=== PATIENT | female | born 1950 | race Caucasian/White ===

== ENCOUNTER → 2016-10-28 | Outpatient (CLI) | payer OTHER ==
[2016-03-20 07:30] VITALS: BP 189/70
--- NOTE | 2016-10-28 12:06 | RAD ---
HISTORY: Right hand, thumb pain post fall Study: Three views right hand Comparison: None Findings: Normal alignment. No acute fracture or dislocation. The soft tissues are unremarkable. There are de generative changes of the fingers and wrist. IMPRESSION: 1. No acute osseous abnormality. Reported By:
== END ==
LOC: RAD 11:19
PROVIDERS: ATTEND Nurse Practitioner Family
DX: M79.641 Pain in right hand (principal)
CPT/HCPCS: 73130

== ENCOUNTER → 2017-04-05 | Outpatient (CLI) | payer OTHER ==
[2016-03-20 07:30] VITALS: BP 189/70
--- NOTE | 2017-04-11 15:55 | MG ---
HISTORY: SCREENING Comparison: Multiple priors dating back to July 28, 2009 FINDINGS: Bilateral CC and MLO projections of the right and left breast were obtained. Scattered fibroglandula r tissue is seen to be present without significant interval change. No suspicious architectural dist ortion, mass or clustered microcalcifications can be observed to suggest malignancy. No skin thicken ing or nipple retraction is appreciated. No pathological lymphadenopathy can be identified. Benign- appearing calcifications are noted within the right and left breast. IMPRESSION: NO RADIOGRAPHIC EVIDENCE OF MALIGNANCY. ACR CATEGORY 2 - benign findings. FOLLOW-UP EXAM 1 YEAR. Diagnostic CAD was utilized and reviewed. * 0 (ZERO) - ASSESSMENT INCOMPLETE; ADDITIONAL IMAGING IS NEEDED. * 1/1 (ONE) - NEGATIVE. * 2/II (TWO) - BENIGN FINDINGS. * 3/III (THREE) - PROBABLY BENIGN FINDING; SHORT INTERVAL FOLLOW-UP SUGGESTED. * 4/IV (FOUR) - SUSPICIOUS ABNORMALITY; BIOPSY SHOULD BE CONSIDERED. * 5/V (FIVE) - HIGHLY SUSPICIOUS OF MALIGNANCY; BIOPSY SHOULD BE PERFORMED. A NEGATIVE X-RAY REPORT SHOULD NOT DELAY BIOPSY IF A DOMINANT OR CLINICALLY SUSPICIOUS MASS IS PRESENT; 4 TO 8 PERCENT OF CANCERS ARE NOT IDENTIFIED BY X-RAY. A NEGA TIVE REPORT MAY REINFORCE THE CLINICAL IMPRESSION. ADENOSIS AND DENSE BREASTS MAY OBSCURE AN UNDERLY ING NEOPLASM. Reported By:
== END ==
LOC: RAD 10:22
PROVIDERS: ATTEND Nurse Practitioner Family
DX: Z12.31 Encounter for screening mammogram for malignant neoplasm of breast (principal)
CPT/HCPCS: 77067

== ENCOUNTER → 2017-09-15 | Outpatient (CLI) | payer OTHER ==
[2016-03-20 07:30] VITALS: BP 189/70
--- NOTE | 2017-09-15 09:19 | RAD ---
HISTORY: Back pain with radiculopathy. Study: Three views of the thoracic spine and 3 views of the lumbar spine. Comparison: None. Findings: 12 rib-bearing thoracic vertebra and 5 [id number] lumbar vertebra. No acute fracture or listhesi s. Mild levocurvature of the lumbar spine, which may represent positioning versus muscle spasm. Multi level mild wedge-shaped deformities of the lower thoracic spine, that appear remote. Multilevel disc space narrowing, facet arthrosis, and large anterior disc osteophyte complexes. Diffuse osteopenia. T he cardiac silhouette and lungs appear normal. Vascular calcifications. Surgical clips in the upper a bdomen. The SI joints are unremarkable. IMPRESSION: Chronic findings as above. Reported By:
--- NOTE | 2017-09-15 09:19 | RAD ---
HISTORY: Back pain with radiculopathy. Study: Three views of the thoracic spine and 3 views of the lumbar spine. Comparison: None. Findings: 12 rib-bearing thoracic vertebra and 5 [id number] lumbar vertebra. No acute fracture or listhesi s. Mild levocurvature of the lumbar spine, which may represent positioning versus muscle spasm. Multi level mild wedge-shaped deformities of the lower thoracic spine, that appear remote. Multilevel disc space narrowing, facet arthrosis, and large anterior disc osteophyte complexes. Diffuse osteopenia. T he cardiac silhouette and lungs appear normal. Vascular calcifications. Surgical clips in the upper a bdomen. The SI joints are unremarkable. IMPRESSION: Chronic findings as above. Reported By:
== END ==
LOC: RAD 08:01
PROVIDERS: ATTEND Nurse Practitioner Family
DX: M54.17 Radiculopathy, lumbosacral region (principal); M54.14 Radiculopathy, thoracic region
CPT/HCPCS: 72072; 72100

== ENCOUNTER → 2017-11-28 | Outpatient (CLI) | payer OTHER ==
[2016-03-20 07:30] VITALS: BP 189/70
--- NOTE | 2017-11-28 09:06 | RAD ---
HISTORY: Chronic right hip pain Study: Right hip AP, frog-leg, AP pelvis Comparison: None Findings: The bones are mildly osteopenic. The pelvic bones and SI joints are intact. The right hip joint is in tact. There is mild degenerative joint space narrowing . no joint erosions are noted. No fracture, ly tic, or blastic lesion is identified. No periarticular soft tissue abnormality is identified. IMPRESSION: Mild osteopenia Mild degenerative joint space narrowing right hip Reported By:
== END ==
LOC: RAD 08:44
PROVIDERS: ATTEND Nurse Practitioner Family
DX: M25.551 Pain in right hip (principal); M85.88 Other specified disorders of bone density and structure, other site
CPT/HCPCS: 73501

== ENCOUNTER 2021-07-28 16:40 | Inpatient (IN) ==
[2021-07-28] MEDS ORDERED: XANAX PO PRN (18:28)
[2021-07-28] MEDS ORDERED: NORCO 7.5/325 MG TAB PO PRN (18:28)
[2021-07-28] MEDS: COLACE CAP 100 MG PO SCH (21:05)
[2021-07-28] MEDS: LYRICA CAP 75 mg PO SCH (21:05)
[2021-07-28] MEDS: ECOTRIN TAB 325 MG PO SCH (21:05)
[2021-07-28] MEDS: ZANAFLEX PO SCH (21:05)
[2021-07-28] MEDS: NORVASC TAB 5 MG PO SCH (21:05)
[2021-07-29] MEDS: PERCOCET TAB 5/325 MG PO PRN ×4 (04:50→20:05)
[2021-07-29 05:06] LABS: BASOPHILS # (AUTO) 0.1 X10^3/uL (0.0-0.1); BASOPHILS % (AUTO) 1.1 % (0.2-1.0); EOSINOPHILS # (AUTO) 0.4 x10^3/uL (0.0-0.2); EOSINOPHILS % (AUTO) 6.7 % (0.9-2.9); HEMOGLOBIN 7.9 g/dL (12.0-16.0); LYMPHOCYTES # (AUTO) 1.1 X10^3/uL (1.3-2.9); LYMPHOCYTES % (AUTO) 17.2 % (21.0-51.0); MEAN CORPUSCULAR HEMOGLOBIN 28.9 pg (27.0-34.0); MEAN CORPUSCULAR HGB CONC 34.2 g/dL (33.0-35.0); MEAN CORPUSCULAR VOLUME 84.6 fL (80.0-100.0); MEAN PLATELET VOLUME 9.4 fL (7.4-11.0); MONOCYTES # (AUTO) 0.8 x10^3/uL (0.3-0.8); MONOCYTES % (AUTO) 13.6 % (0.0-13.0); NEUTROPHILS # (AUTO) 3.8 x10^3/uL (2.2-4.8); NEUTROPHILS % (AUTO) 61.4 % (42.0-75.0); PLATELET COUNT 252 X10^3/uL (150.0-450.0); RED BLOOD COUNT 2.72 X10^6/uL (3.5-5.4); RED CELL DISTRIBUTION WIDTH 13.2 % (11.6-16.5); WHITE BLOOD COUNT 6.1 X10^3/uL (3.6-10.0)
[2021-07-29 05:26] LABS: ALBUMIN 2.4 g/dL (3.4-5.0); CALCIUM 8.9 mg/dL (8.5-10.1); CARBON DIOXIDE 32.1 mmol/L (21-32); COR CA(FOR HYPOALB) 10.2 mg/dL (8.5-10.1); CREATININE 1.38 mg/dL (0.55-1.02); TOTAL PROTEIN 5.6 g/dL (6.4-8.2)
[2021-07-29] MEDS: SYNTHROID 75 mcg TAB PO SCH (06:16)
[2021-07-29] MEDS: CYMBALTA PO SCH (09:28)
[2021-07-29] MEDS: ECOTRIN TAB 325 MG PO SCH ×2 (09:28→20:04)
[2021-07-29] MEDS: MICRO K EXTEN CAP 10 MEQ PO SCH (09:28)
[2021-07-29] MEDS: HYDROCHLOROTHIAZIDE 12.5 MG CAP PO SCH (09:28)
[2021-07-29] MEDS: LYRICA CAP 75 mg PO SCH ×2 (09:28→20:07)
[2021-07-29] MEDS: COZAAR PO SCH (09:28)
[2021-07-29] MEDS: LASIX PO SCH (09:28)
[2021-07-29] MEDS: NORVASC TAB 5 MG PO SCH ×2 (09:28→20:04)
[2021-07-29] MEDS: COLACE CAP 100 MG PO SCH ×2 (09:28→20:04)
--- NOTE | 2021-07-29 12:55 | PT/OTEVAL ---
PT/OT OBJECTIVES - HISTORY Prescription: PT Consult Diagnosis: s/p L Total Knee Arthroplasty (07/21/2021) Precautions: Fall Risk PMH: Weakness, Colitis, Abdominal Pain, Fall, Anemia, Arthritis, Depression, Dyslipidemia, Gout, HTN, Hyperthyroidism, RLS, Fever, N/V, TIA, Dehydration, Neuropathy, Fibromyalgia, L Shoulder OA/Spurs Prior Level of Function: Independent Other, comment: Pt resides in split level home with her . Other: Pt reports home in a split level with 1 step to enter from carport. Pt reports that there are several places in home where she has 2 steps to get to another room (into kitchen, into living room and into laundry room). Prior to surgery, pt was independent for all mobility tasks without a device. Does report using SPC occasionally. Pt states that she was using a hospital bed over the last several years due to back/hip pain/arthritis. - COGNITION Mental Status: Alert, Oriented, Name, Date, Place, Purpose Communication Status: Verbal Ability to Follow Directions: 2 Step Memory Loss: None - PAIN Left Knee Pain Scale: Mild (3-4) Comments: 11/22 to L knee - BED MOBILITY Rolling: Supervision Scooting: Supervision Bridging: Supervision - TRANSFERS Supine to Sit: Supervision Sit to Stand: Supervision, Minimal Sit to Stand Comment: CGA for transfers; however, required min assist from low surface Sit or Stand Pivot: Supervision Safety (requires cues for:): Hand Placement Precaution Safety Comment: Knee Precautions - BALANCE Static Sitting: Good Standing: Fair Dynamic Sitting: Good Standing: Poor - NEUROMOTOR/SENSATION Wilber. Lower Ext Sensation: WFL Coordination: WFL Proprioception: WFL - HAND DOMINANCE Extremity Function: Hand Dominance: Right - ROM Left LE ROM: Impaired Muscle Tone: WFL Comment: L Knee: AROM: Extension:-12, Flexion: 80; PROM: Extension: -10, Flexion: 85 Right LE ROM: WFL Muscle Tone: WFL - STRENGTH Left LE Other comment: L Hip: 3/5, L Knee: 3-/5, L Ankle: 3-/5 Right LE Strength Number: 4 - GAIT Pt. ambulates how many feet?: 100 Amount of assistance required: Minimal Amount of Assistance Required: Supervision Type of Assistive Device: Rolling Walker Comments: CGA for turns with FWW; SBA on straight path. Cues for step length, posture PT/OT ASSESSMENT - PT Problem List: Decreased Bed Mobility, Decreased Transfers, Decreased Gait, Decreased Balance, Decreased LE Strength - PT GOALS Short Term Goals Days: 10 Mobility: Pt will perform bed mobility tasks independently Transfers: Pt will perform functional transfers independently Gait: Pt will ambulate 200ft with FWW and supervision Balance: Pt will increase static standing balance to fair+/good- ROM/Strength: Pt will increase L knee flexion/extension AROM by 10 degrees Others: Pt will ascend/descend 2 stairs with CGA Cardiac Cath Rn Goals Days: 20 Transfers: Pt will complete 8 sit to stand transfers in 30 seconds Gait: Pt will ambulate 300ft with LRAD mod I with TUG of 20 seconds or less Balance: Pt will increase dynamic standing balance to fair+ ROM/Strength: Pt will increase BLE by 1 MMT grade & increase L knee flex/ext by 20 degree Others: Pt will ascend/descend 4 stairs with mod I - PATIENT GOALS Patient/Family Goals: "I want to be able to move on my own so that I can go home" Goals Discussed with Patient/Family: Yes (Pt & ) Rehabilitation Potential: Good to meet stated goals Justification for Potential: Facilitate highest level of function & safe discharge planning. - PLAN Suggested Treatment Plan: Bed Mobility Training, Therapeutic Activity, Gait Training, Neuro Re-education, Therapeutic Ex with HEP, Home Management, Patient Education, Family Education - FREQUENCY AND DURATION PT: 6x per week x 20 days Expected Continuation of Care at Discharge: Outpatient Therapy
[2021-07-29] MEDS: MIRALAX POWDER (1 DOSE 17 G) PO SCH (15:11)
[2021-07-29] MEDS: ZANAFLEX PO SCH (20:04)
[2021-07-30] MEDS: PERCOCET TAB 5/325 MG PO PRN ×3 (00:17→21:20)
[2021-07-30] MEDS: SYNTHROID 75 mcg TAB PO SCH (06:03)
[2021-07-30] MEDS: MIRALAX POWDER (1 DOSE 17 G) PO SCH (08:55)
[2021-07-30] MEDS: ECOTRIN TAB 325 MG PO SCH ×2 (08:56→21:20)
[2021-07-30] MEDS: COLACE CAP 100 MG PO SCH ×2 (08:56→21:19)
[2021-07-30] MEDS: HYDROCHLOROTHIAZIDE 12.5 MG CAP PO SCH (08:56)
[2021-07-30] MEDS: MICRO K EXTEN CAP 10 MEQ PO SCH (08:56)
[2021-07-30] MEDS: LYRICA CAP 75 mg PO SCH ×2 (08:56→21:20)
[2021-07-30] MEDS: CYMBALTA PO SCH (08:56)
[2021-07-30] MEDS: NORVASC TAB 5 MG PO SCH ×2 (08:57→21:20)
[2021-07-30] MEDS: LASIX PO SCH (08:57)
[2021-07-30] MEDS: COZAAR PO SCH (08:57)
--- NOTE | 2021-07-30 12:49 | SP.EVAL ---
SPEECH EVALUATION - History Diagnosis: Total knee replacement PMH: refer to EMR - Cognition Mental Status: Alert Ability to Follow Directions: 3 Step Memory Loss: None - Communication Status Communication Status: Verbal Automatized Sequences: Within Functional Limit Sentence Completion: Within Functional Limit Produces Sentences: Within Functional Limit - Speech Goals Short Term Goals Others: Pt will ascend/descend 2 stairs with CGA Residential Goals Others: Pt will ascend/descend 4 stairs with mod I - Discharge Plan Expected Discharge Disposition: To Be Determined Comments: No skilled ST indicated at this time
--- NOTE | 2021-07-30 13:05 | PT/OTEVAL ---
PT/OT OBJECTIVES - HISTORY Prescription: OT consult Diagnosis: L Total Knee Precautions: fall risk, knee precautions Prior Level of Function: Independent Other: Prior to hospitalization, she lives in a 1 story house with , but did report that there are several steps around the home ranging from 1-2 steps with no HR. Patient was independent with BADLs except she needed assistance with her L leg getting into the tub sometimes. She requires assistance from with IADLs, shopping, and community access. She reports she is able to make small meals and cook with rest breaks. - COGNITION Mental Status: Alert, Oriented, Name, Date, Place, Purpose Communication Status: Verbal Ability to Follow Directions: 3 Step Memory Loss: None - PAIN Left Knee Pain Scale: Mild (3-4) Comments: 11/22 to L knee - BED MOBILITY Rolling: Independent - TRANSFERS Supine to Sit: Independent Sit to Stand: Independent Sit or Stand Pivot: Independent - ADL'S Feeding: Independent, Setup Grooming: Supervision Upper Body ADL: Independent, Setup Lower Body ADL: Moderate Toileting: Supervision - BALANCE Static Sitting: Good Standing: Fair Dynamic Sitting: Good Standing: Poor - NEUROMOTOR/SENSATION Wilber. Lower Ext Sensation: WFL Coordination: WFL Proprioception: WFL - HAND DOMINANCE Extremity Function: Hand Dominance: Right - ROM Bilateral UE Muscle Tone: WFL - STRENGTH Left LE Other comment: L Hip: 3/5, L Knee: 3-/5, L Ankle: 3-/5 Right LE Strength Number: 4 Bilateral UE Strength Number: 3 PT/OT ASSESSMENT - PT GOALS Short Term Goals Days: 10 Mobility: Pt will perform bed mobility tasks independently Transfers: Pt will perform functional transfers independently Gait: Pt will ambulate 200ft with FWW and supervision Balance: Pt will increase static standing balance to fair+/good- ROM/Strength: Pt will increase L knee flexion/extension AROM by 10 degrees Others: Pt will ascend/descend 2 stairs with CGA Payroll Master Goals Days: 20 Transfers: Pt will complete 8 sit to stand transfers in 30 seconds Gait: Pt will ambulate 300ft with LRAD mod I with TUG of 20 seconds or less Balance: Pt will increase dynamic standing balance to fair+ ROM/Strength: Pt will increase BLE by 1 MMT grade & increase L knee flex/ext by 20 degree Others: Pt will ascend/descend 4 stairs with mod I - OT GOALS Short Term Goals Days: 10 Mobility for ADL's: Will demonstrate safe functional transfer w/ knee precautions w/ VC. Dressing: Will don LB clothing with Belen w/ AE. Upper Ext. Strength/Use: Will improve BUE strength to +1/2 MMT grade. Other: Will improve F.A.T. to at least 10 min with RW. Payroll Master Goals Days: 20 Mobility for ADL's: Will demonstrate safe functional transfer with knee precautions Ind. Dressing: Will don LB clothing Ind. w/ AE. Upper Ext. Strength/Use: Will improve BUE strength to +1 MMT grade. Other: Will improve F.A.T. to at least 15 min with RW. - PATIENT GOALS Patient/Family Goals: To go home Goals Discussed with Patient/Family: Yes Rehabilitation Potential: Good Justification for Potential: Motivated, good caregiver support - PLAN Suggested Treatment Plan: Therapeutic Activity, Self Care Training, Therapeutic Ex with HEP, Patient Education, Family Education - FREQUENCY AND DURATION OT: 5x/wk x hospital stay Expected Continuation of Care at Discharge: Home
[2021-07-30] MEDS: CHRONULAC PO PRN ×2 (15:43→21:21)
[2021-07-30] MEDS: ZANAFLEX PO SCH (21:20)
[2021-07-31] MEDS: PERCOCET TAB 5/325 MG PO PRN (02:26)
[2021-07-31] MEDS: SYNTHROID 75 mcg TAB PO SCH (06:14)
[2021-07-31] MEDS: CHRONULAC PO PRN (06:14)
[2021-07-31] MEDS: MILK OF MAGNESIA PO PRN (06:14)
[2021-07-31] MEDS: COLACE CAP 100 MG PO SCH ×2 (09:27→21:36)
[2021-07-31] MEDS: COZAAR PO SCH (09:27)
[2021-07-31] MEDS: CYMBALTA PO SCH (09:27)
[2021-07-31] MEDS: HYDROCHLOROTHIAZIDE 12.5 MG CAP PO SCH (09:28)
[2021-07-31] MEDS: LASIX PO SCH (09:28)
[2021-07-31] MEDS: MICRO K EXTEN CAP 10 MEQ PO SCH (09:28)
[2021-07-31] MEDS: MIRALAX POWDER (1 DOSE 17 G) PO SCH (09:28)
[2021-07-31] MEDS: ECOTRIN TAB 325 MG PO SCH ×2 (09:28→21:36)
[2021-07-31] MEDS: LYRICA CAP 75 mg PO SCH ×2 (09:28→21:36)
[2021-07-31] MEDS: NORVASC TAB 5 MG PO SCH ×2 (09:29→21:36)
[2021-07-31] MEDS ORDERED: ZOFRAN INJ 4 MG VIAL IVP PRN (13:15)
[2021-07-31] MEDS ORDERED: PHENERGAN INJ 25 MG IM ONE ×2 (13:21→13:24)
--- NOTE | 2021-07-31 21:17 | PCM.PROG ---
Progress Note - Subjective Subjective: PATIENT IS A 70 YEAR OLD WHITE FEMALE WHO WAS ADMITTED TO SWING BED FOR REHAB. PATIENT HAS BEEN WORKING WITH PT. PATIENT IS S/P LEFT TKA. HEALING WELL. DRESSING INTACT. MINIMAL EDEMA TO LOWER EXT. PATIENT HAS NOT HAD A BM IN 5 DAYS AND HAS FAILED MIRALAX, COLACE, AND LACTULOSE. PATIENT ALSO HAVING NAUSEA AND 1 EPISODE OF VOMITING. KUB ORDERED. ENEMA PRN PENDING KUB RESULTS.DENIES ABDOMINAL PAIN. - Past Medical Family Social History Past Med/Fam/Surg Hx: No changes since H&P Allergies: Allergies No Known Drug Allergies Allergy (Verified 02/09/19 08:00) - Review of Systems ROS: No change since H&P - Vital Signs and I&O's Vital Signs: Temperature 97.7 F Pulse Rate [Left Brachial] 78 Respiratory Rate 22 Blood Pressure [Right Arm] 130/60 Blood Pressure [Left Arm] 115/67 Blood Pressure 160/82 O2 Sat by Pulse Oximetry 96 Intake and Output: Intake & Output 07/28/21 07/29/21 07/30/21 07/31/21 23:59 23:59 23:59 23:59 Intake Total 222 / 222 2320 / 2320 2094 / 2094 1044 / 1044 Output Total 0 / 0 Balance 222 / 222 2320 / 2320 2094 1044 / 1044 - Physical Exam Oriented: Normal, Time, Person, Place Eyes: Normal Ear: Normal Nose: Normal Throat: Normal Respiratory: Normal Cardiovascular: Normal, Edema (LEFT LOWER EXT +2) : Normal Auscultation: Bowel Sounds: Normal Palpation: Normal Tenderness: Normal Skin: Normal Musculoskeletal: Left, Knee (RECENT LEFT TKA, DRESSIG CDI.) Psychiatric: Normal Mood Description: Calm Affect: Normal Speech Pattern: Clear, Appropriate - Laboratory and Diagnostics Result Diagrams: 07/29/21 04:00 07/29/21 04:00 Labs: Laboratory WBC 6.1 X10^3/uL (3.6-10.0) 07/29/21 04:00 RBC 2.72 X10^6/uL (3.5-5.4) L 07/29/21 04:00 Hgb 7.9 g/dL (12.0-16.0) L 07/29/21 04:00 Hct 23.0 % (36.0-47.0) L 07/29/21 04:00 MCV 84.6 fL (80.0-100.0) 07/29/21 04:00 MCH 28.9 pg (27.0-34.0) 07/29/21 04:00 MCHC 34.2 g/dL (33.0-35.0) 07/29/21 04:00 RDW 13.2 % (11.6-16.5) 07/29/21 04:00 Plt Count 252 X10^3/uL (150.0-450.0) 07/29/21 04:00 MPV 9.4 fL (7.4-11.0) 07/29/21 04:00 Neut % (Auto) 61.4 % (42.0-75.0) 07/29/21 04:00 Lymph % (Auto) 17.2 % (21.0-51.0) L 07/29/21 04:00 Toole % (Auto) 13.6 % (0.0-13.0) H 07/29/21 04:00 Eos % (Auto) 6.7 % (0.9-2.9) H 07/29/21 04:00 Baso % (Auto) 1.1 % (0.2-1.0) H 07/29/21 04:00 Neut # (Auto) 3.8 x10^3/uL (2.2-4.8) 07/29/21 04:00 Lymph # (Auto) 1.1 X10^3/uL (1.3-2.9) L 07/29/21 04:00 Toole # (Auto) 0.8 x10^3/uL (0.3-0.8) 07/29/21 04:00 Eos # (Auto) 0.4 x10^3/uL (0.0-0.2) H 07/29/21 04:00 Baso # (Auto) 0.1 X10^3/uL (0.0-0.1) 07/29/21 04:00 Absolute Nucleated RBC 0.2 /100WBC 07/29/21 04:00 Sodium 140 mmol/L (136-145) 07/29/21 04:00 Corrected Sodium 140 mmol/L (136-145) 07/29/21 04:00 Potassium 4.4 mmol/L (3.5-5.1) 07/29/21 04:00 Chloride 104 mmol/L (98-107) 07/29/21 04:00 Carbon Dioxide 32.1 mmol/L (21-32) H 07/29/21 04:00 BUN 23 mg/dL (7-18) H 07/29/21 04:00 Creatinine 1.38 mg/dL (0.55-1.02) H 07/29/21 04:00 Est GFR (MDRD) Af Amer 48 (>60) L 07/29/21 04:00 Est GFR (MDRD) Non-Af 40 (>60) L 07/29/21 04:00 Glucose 111 mg/dL (65-99) H 07/29/21 04:00 Calcium 8.9 mg/dL (8.5-10.1) 07/29/21 04:00 Corrected Calcium 10.2 mg/dL (8.5-10.1) H 07/29/21 04:00 Total Bilirubin 0.60 mg/dL (0.2-1.0) 07/29/21 04:00 AST 29 Units/L (15-37) 07/29/21 04:00 ALT 26 Units/L (12-78) 07/29/21 04:00 Alkaline Phosphatase 62 Units/L (46-116) 07/29/21 04:00 Total Protein 5.6 g/dL (6.4-8.2) L 07/29/21 04:00 Albumin 2.4 g/dL (3.4-5.0) L 07/29/21 04:00 Globulin 3.2 g/dL (2.5-4.5) 07/29/21 04:00 Albumin/Globulin Ratio 0.8 Ratio (1.1-2.1) L 07/29/21 04:00 - Plan (1) Constipation Status: Acute Plan: LIKELY OPIOID INDUCED. KUB PENDING. REPEAT LABS. SEE ABOVE. (2) Generalized weakness Status: Acute Plan: PHYSICAL THERAPY (3) Arthritis Status: Chronic Plan: S/P LEFT TKA (4) Nausea & vomiting Status: Acute
--- NOTE | 2021-07-31 21:24 | PCM.PROG ---
Progress Note - Progress Note for Day of Date of Exam: 07/30/21 - Subjective Subjective: PATIENT IS A 70 YEAR OLD WHITE FEMALE WHO WAS ADMITTED TO SWING BED FOR REHAB. PATIENT HAS BEEN WORKING WITH PT. PATIENT IS S/P LEFT TKA. HEALING WELL. DRESSING INTACT. PATIENT HAS NOT HAD A BM IN 4 DAYS AND HAS FAILED MOM. LACTULOSE ADDED WELL MIRALAX DAILY AND COLACE. dENIES ABDOMINAL PAIN. - Past Medical Family Social History Past Med/Fam/Surg Hx: No changes since H&P Allergies: Allergies No Known Drug Allergies Allergy (Verified 02/09/19 08:00) - Review of Systems ROS: No change since H&P - Vital Signs and I&O's Vital Signs: Temperature 97.7 F Pulse Rate [Left Brachial] 78 Respiratory Rate 22 Blood Pressure [Right Arm] 130/60 Blood Pressure [Left Arm] 115/67 Blood Pressure 160/82 O2 Sat by Pulse Oximetry 96 Intake and Output: Intake & Output 07/28/21 07/29/21 07/30/21 07/31/21 23:59 23:59 23:59 23:59 Intake Total 222 / 222 2320 / 2320 2094 / 5 1044 / 1044 Output Total 0 / 0 Balance 222 / 222 2320 / 2320 2094 / 2094 1044 / 1044 - Physical Exam Oriented: Normal, Time, Person, Place Eyes: Normal Ear: Normal Nose: Normal Throat: Normal Respiratory: Normal Cardiovascular: Normal, Edema (LEFT LOWER EXT +2) : Normal Auscultation: Bowel Sounds: Normal Tenderness: Normal Skin: Normal Musculoskeletal: Left, Knee (RECENT LEFT TKA, DRESSIG CDI.) Psychiatric: Normal Mood Description: Calm Affect: Normal Speech Pattern: Clear, Appropriate - Laboratory and Diagnostics Result Diagrams: 07/29/21 04:00 07/29/21 04:00 Labs: Laboratory WBC 6.1 X10^3/uL (3.6-10.0) 07/29/21 04:00 RBC 2.72 X10^6/uL (3.5-5.4) L 07/29/21 04:00 Hgb 7.9 g/dL (12.0-16.0) L 07/29/21 04:00 Hct 23.0 % (36.0-47.0) L 07/29/21 04:00 MCV 84.6 fL (80.0-100.0) 07/29/21 04:00 MCH 28.9 pg (27.0-34.0) 07/29/21 04:00 MCHC 34.2 g/dL (33.0-35.0) 07/29/21 04:00 RDW 13.2 % (11.6-16.5) 07/29/21 04:00 Plt Count 252 X10^3/uL (150.0-450.0) 07/29/21 04:00 MPV 9.4 fL (7.4-11.0) 07/29/21 04:00 Neut % (Auto) 61.4 % (42.0-75.0) 07/29/21 04:00 Lymph % (Auto) 17.2 % (21.0-51.0) L 07/29/21 04:00 Tripp % (Auto) 13.6 % (0.0-13.0) H 07/29/21 04:00 Eos % (Auto) 6.7 % (0.9-2.9) H 07/29/21 04:00 Baso % (Auto) 1.1 % (0.2-1.0) H 07/29/21 04:00 Neut # (Auto) 3.8 x10^3/uL (2.2-4.8) 07/29/21 04:00 Lymph # (Auto) 1.1 X10^3/uL (1.3-2.9) L 07/29/21 04:00 Tripp # (Auto) 0.8 x10^3/uL (0.3-0.8) 07/29/21 04:00 Eos # (Auto) 0.4 x10^3/uL (0.0-0.2) H 07/29/21 04:00 Baso # (Auto) 0.1 X10^3/uL (0.0-0.1) 07/29/21 04:00 Absolute Nucleated RBC 0.2 /100WBC 07/29/21 04:00 Sodium 140 mmol/L (136-145) 07/29/21 04:00 Corrected Sodium 140 mmol/L (136-145) 07/29/21 04:00 Potassium 4.4 mmol/L (3.5-5.1) 07/29/21 04:00 Chloride 104 mmol/L (98-107) 07/29/21 04:00 Carbon Dioxide 32.1 mmol/L (21-32) H 07/29/21 04:00 BUN 23 mg/dL (7-18) H 07/29/21 04:00 Creatinine 1.38 mg/dL (0.55-1.02) H 07/29/21 04:00 Est GFR (MDRD) Af Amer 48 (>60) L 07/29/21 04:00 Est GFR (MDRD) Non-Af 40 (>60) L 07/29/21 04:00 Glucose 111 mg/dL (65-99) H 07/29/21 04:00 Calcium 8.9 mg/dL (8.5-10.1) 07/29/21 04:00 Corrected Calcium 10.2 mg/dL (8.5-10.1) H 07/29/21 04:00 Total Bilirubin 0.60 mg/dL (0.2-1.0) 07/29/21 04:00 AST 29 Units/L (15-37) 07/29/21 04:00 ALT 26 Units/L (12-78) 07/29/21 04:00 Alkaline Phosphatase 62 Units/L (46-116) 07/29/21 04:00 Total Protein 5.6 g/dL (6.4-8.2) L 07/29/21 04:00 Albumin 2.4 g/dL (3.4-5.0) L 07/29/21 04:00 Globulin 3.2 g/dL (2.5-4.5) 07/29/21 04:00 Albumin/Globulin Ratio 0.8 Ratio (1.1-2.1) L 07/29/21 04:00 - Plan (1) Constipation Status: Acute Plan: LIKELY OPIOID INDUCED. SEE EMR (2) Generalized weakness Status: Acute Plan: PHYSICAL THERAPY (3) Arthritis Status: Chronic Plan: S/P LEFT TKA
[2021-07-31] MEDS ORDERED: LYRICA CAP 150 mg PO PRN (21:25)
[2021-07-31] MEDS ORDERED: ZANAFLEX PO PRN (21:25)
[2021-07-31] MEDS ORDERED: XANAX PO PRN (21:25)
[2021-07-31] MEDS ORDERED: LASIX PO PRN (21:25)
[2021-07-31] MEDS: ZANAFLEX PO SCH (21:37)
[2021-07-31 21:55] LABS: BASOPHILS # (AUTO) 0.2 X10^3/uL (0.0-0.1); BASOPHILS % (AUTO) 0.9 % (0.2-1.0); EOSINOPHILS # (AUTO) 0.2 x10^3/uL (0.0-0.2); EOSINOPHILS % (AUTO) 1.3 % (0.9-2.9); HEMATOCRIT 27.2 % (36.0-47.0); HEMOGLOBIN 9.1 g/dL (12.0-16.0); LYMPHOCYTES % (AUTO) 5.6 % (21.0-51.0); MEAN CORPUSCULAR HEMOGLOBIN 27.8 pg (27.0-34.0); MEAN CORPUSCULAR HGB CONC 33.6 g/dL (33.0-35.0); MEAN CORPUSCULAR VOLUME 82.9 fL (80.0-100.0); MEAN PLATELET VOLUME 8.7 fL (7.4-11.0); MONOCYTES # (AUTO) 1.5 x10^3/uL (0.3-0.8); MONOCYTES % (AUTO) 8.2 % (0.0-13.0); NEUTROPHILS # (AUTO) 15.2 x10^3/uL (2.2-4.8); PLATELET COUNT 415 X10^3/uL (150.0-450.0); RED BLOOD COUNT 3.28 X10^6/uL (3.5-5.4); RED CELL DISTRIBUTION WIDTH 13.5 % (11.6-16.5)
[2021-07-31] MEDS ORDERED: CYMBALTA PO SCH (22:00)
[2021-07-31 22:03] LABS: WHITE BLOOD COUNT 18.1 X10^3/uL (3.6-10.0)
[2021-07-31] MEDS: NS 1,000 ML IV 1,000 ML IV SCH (23:05)
[2021-07-31] MEDS ORDERED: TYLENOL 325 MG TAB PO PRN ×2 (23:14→23:45)
[2021-07-31] MEDS: ZOSYN VIAL 3.375 GRAMS 3.375 G in NS 100 ML IV + SPIKE MINIBAG* 100 ML IV SCH (23:30)
[2021-07-31 23:58] LABS: BILIRUBIN,URINE NEGATIVE (NEGATIVE); BLOOD/HEMOGLOBIN,URINE NEGATIVE (NEGATIVE); GLUCOSE, URINE NEGATIVE (NEGATIVE); KETONES,URINE NEGATIVE (NEGATIVE); LEUKOCYTE ESTERASE ,URINE NEGATIVE (NEGATIVE); NITRITES,URINE NEGATIVE (NEGATIVE); PROTEIN,URINE NEGATIVE (NEGATIVE); UROBILINOGEN,URINE NORMAL (NORMAL)
[2021-08-01 00:12] LABS: APPEARANCE,URINE CLEAR (CLEAR); COLOR,URINE YELLOW (YELLOW)
--- NOTE | 2021-08-01 03:34 | RAD ---
HISTORYINCREASED TEMP Relevant Clinical InformationSTUDYCHEST, 1 [id number]/2021FINDINGSThe trachea is midline. The cardiac silhouette is unremarkable. The lungs are clear without focal infiltrate or effusion. Pulmonary vasculature within normal limits. No pneumothorax. The bony thorax is unremarkable.IMPRESSIONNo acute cardiopulmonary findings .Electronically signed by: Fernie Shultz (Aug 01, 2021 03:33:09)
--- NOTE | 2021-08-01 04:21 | RAD ---
HISTORYabdominal pain no bm 5 days Relevant Clinical InformationSTUDYKUBCOMPARISONNone br.br.br pattern. There is a moderate amount of fecal material throughout the colon. No pathological soft tissue mass or calcification can be observed. The bony structures are grossly intact.IMPRESSIONNo evidence for acute abdominal pathology identified.Electronically signed by: Fernie Shultz (Aug 01, 2021 04:19:39)
[2021-08-01] MEDS: CHRONULAC PO PRN (05:03)
[2021-08-01] MEDS: MILK OF MAGNESIA PO PRN (05:04)
[2021-08-01] MEDS: ZOSYN VIAL 3.375 GRAMS 3.375 G in NS 100 ML IV + SPIKE MINIBAG* 100 ML IV SCH ×3 (05:07→21:07)
[2021-08-01] MEDS: SYNTHROID 75 mcg TAB PO SCH (05:30)
[2021-08-01 06:51] LABS: BASOPHILS # (AUTO) 0.2 X10^3/uL (0.0-0.1); EOSINOPHILS # (AUTO) 0.1 x10^3/uL (0.0-0.2); EOSINOPHILS % (AUTO) 0.8 % (0.9-2.9); HEMATOCRIT 23.1 % (36.0-47.0); HEMOGLOBIN 7.9 g/dL (12.0-16.0); LYMPHOCYTES # (AUTO) 1.5 X10^3/uL (1.3-2.9); MEAN CORPUSCULAR HEMOGLOBIN 28.6 pg (27.0-34.0); MEAN CORPUSCULAR HGB CONC 34.3 g/dL (33.0-35.0); MEAN CORPUSCULAR VOLUME 83.4 fL (80.0-100.0); MONOCYTES # (AUTO) 1.4 x10^3/uL (0.3-0.8); MONOCYTES % (AUTO) 8.5 % (0.0-13.0); NEUTROPHILS # (AUTO) 13.5 x10^3/uL (2.2-4.8); NEUTROPHILS % (AUTO) 80.7 % (42.0-75.0); PLATELET COUNT 330 X10^3/uL (150.0-450.0); RED BLOOD COUNT 2.77 X10^6/uL (3.5-5.4); RED CELL DISTRIBUTION WIDTH 13.6 % (11.6-16.5); WHITE BLOOD COUNT 16.7 X10^3/uL (3.6-10.0)
[2021-08-01 07:00] LABS: ALBUMIN 2.6 g/dL (3.4-5.0); CALCIUM 9.1 mg/dL (8.5-10.1); CARBON DIOXIDE 29.2 mmol/L (21-32); COR CA(FOR HYPOALB) 10.2 mg/dL (8.5-10.1); CREATININE 1.76 mg/dL (0.55-1.02)
[2021-08-01] MEDS ORDERED: LOSARTAN HYDROCHLOROTHIAZIDE PO SCH (09:00)
[2021-08-01] MEDS ORDERED: CYMBALTA PO SCH (09:00)
[2021-08-01] MEDS ORDERED: SYNTHROID 75 mcg TAB PO SCH (09:00)
[2021-08-01] MEDS ORDERED: NORVASC TAB 5 MG PO SCH (09:00)
[2021-08-01] MEDS: COLACE CAP 100 MG PO SCH ×2 (09:39→21:05)
[2021-08-01] MEDS: CYMBALTA PO SCH (09:40)
[2021-08-01] MEDS: MIRALAX POWDER (1 DOSE 17 G) PO SCH (09:41)
[2021-08-01] MEDS: LYRICA CAP 75 mg PO SCH ×2 (09:41→21:06)
[2021-08-01] MEDS: MICRO K EXTEN CAP 10 MEQ PO SCH ×2 (09:41→21:06)
[2021-08-01] MEDS: ECOTRIN TAB 325 MG PO SCH ×2 (09:41→21:05)
[2021-08-01] MEDS: HYDROCHLOROTHIAZIDE 12.5 MG CAP PO SCH (09:42)
[2021-08-01] MEDS: NORVASC TAB 5 MG PO SCH ×2 (09:42→21:06)
[2021-08-01] MEDS: LASIX PO SCH (09:42)
[2021-08-01] MEDS: COZAAR PO SCH (09:43)
[2021-08-01] MEDS: NORCO 7.5/325 MG TAB PO PRN (13:50)
[2021-08-01] MEDS: NS 1,000 ML IV 1,000 ML IV SCH (19:14)
[2021-08-02] MEDS: NORCO 7.5/325 MG TAB PO PRN ×2 (03:19→21:00)
[2021-08-02] MEDS: ZOSYN VIAL 3.375 GRAMS 3.375 G in NS 100 ML IV + SPIKE MINIBAG* 100 ML IV SCH ×2 (05:21→21:05)
[2021-08-02] MEDS: SYNTHROID 75 mcg TAB PO SCH (05:29)
[2021-08-02] MEDS: HYDROCHLOROTHIAZIDE 12.5 MG CAP PO SCH (09:40)
[2021-08-02] MEDS: COZAAR PO SCH (09:40)
[2021-08-02] MEDS: LYRICA CAP 75 mg PO SCH ×2 (09:40→21:05)
[2021-08-02] MEDS: LASIX PO SCH (09:40)
[2021-08-02] MEDS: CYMBALTA PO SCH (09:40)
[2021-08-02] MEDS: COLACE CAP 100 MG PO SCH ×2 (09:40→21:05)
[2021-08-02] MEDS: MICRO K EXTEN CAP 10 MEQ PO SCH ×2 (09:40→21:05)
[2021-08-02] MEDS: NORVASC TAB 5 MG PO SCH ×2 (09:40→21:05)
[2021-08-02] MEDS: ECOTRIN TAB 325 MG PO SCH ×2 (09:40→21:05)
[2021-08-02] MEDS: MIRALAX POWDER (1 DOSE 17 G) PO SCH (09:44)
[2021-08-03] MEDS: SYNTHROID 75 mcg TAB PO SCH (05:42)
[2021-08-03] MEDS: NS 1,000 ML IV 1,000 ML IV SCH ×2 (07:37→10:59)
[2021-08-03 08:10] VITALS: BP 150/67
[2021-08-03] MEDS: COZAAR PO SCH (09:20)
[2021-08-03] MEDS: ZOSYN VIAL 3.375 GRAMS 3.375 G in NS 100 ML IV + SPIKE MINIBAG* 100 ML IV SCH (09:20)
[2021-08-03] MEDS: CYMBALTA PO SCH (09:21)
[2021-08-03] MEDS: HYDROCHLOROTHIAZIDE 12.5 MG CAP PO SCH ×2 (09:21→09:36)
[2021-08-03] MEDS: LYRICA CAP 75 mg PO SCH (09:21)
[2021-08-03] MEDS: ECOTRIN TAB 325 MG PO SCH (09:22)
[2021-08-03] MEDS: NORVASC TAB 5 MG PO SCH (09:22)
[2021-08-03] MEDS: LASIX PO SCH ×2 (09:22→09:36)
[2021-08-03] MEDS: MICRO K EXTEN CAP 10 MEQ PO SCH (09:22)
[2021-08-03] MEDS: COLACE CAP 100 MG PO SCH ×2 (09:23→09:36)
[2021-08-03 09:33] LABS: BASOPHILS # (AUTO) 0.1 X10^3/uL (0.0-0.1); BASOPHILS % (AUTO) 1.3 % (0.2-1.0); EOSINOPHILS # (AUTO) 0.5 x10^3/uL (0.0-0.2); EOSINOPHILS % (AUTO) 4.8 % (0.9-2.9); HEMATOCRIT 24.7 % (36.0-47.0); HEMOGLOBIN 8.3 g/dL (12.0-16.0); LYMPHOCYTES # (AUTO) 1.4 X10^3/uL (1.3-2.9); MEAN CORPUSCULAR HEMOGLOBIN 28.2 pg (27.0-34.0); MEAN CORPUSCULAR HGB CONC 33.4 g/dL (33.0-35.0); MEAN CORPUSCULAR VOLUME 84.5 fL (80.0-100.0); MEAN PLATELET VOLUME 8.9 fL (7.4-11.0); MONOCYTES # (AUTO) 0.9 x10^3/uL (0.3-0.8); MONOCYTES % (AUTO) 9.7 % (0.0-13.0); NEUTROPHILS # (AUTO) 6.5 x10^3/uL (2.2-4.8); NEUTROPHILS % (AUTO) 69.2 % (42.0-75.0); PLATELET COUNT 323 X10^3/uL (150.0-450.0); RED BLOOD COUNT 2.93 X10^6/uL (3.5-5.4); WHITE BLOOD COUNT 9.5 X10^3/uL (3.6-10.0)
[2021-08-03] MEDS: MIRALAX POWDER (1 DOSE 17 G) PO SCH (09:35)
[2021-08-03 09:46] LABS: ALBUMIN 2.6 g/dL (3.4-5.0); CALCIUM 9.1 mg/dL (8.5-10.1); CARBON DIOXIDE 28.7 mmol/L (21-32); COR CA(FOR HYPOALB) 10.2 mg/dL (8.5-10.1); CREATININE 1.44 mg/dL (0.55-1.02); TOTAL PROTEIN 6.3 g/dL (6.4-8.2)
== END 2021-08-03 12:00 | disposition home health service (06) | DRG 554 ==
LOC: MED/SURG 18:53
PROVIDERS: ADMIT Internal Medicine; ATTEND Internal Medicine
DX: Z51.89 Encounter for other specified aftercare; E78.2 Mixed hyperlipidemia; K59.09 Other constipation; R26.89 Other abnormalities of gait and mobility; R53.1 Weakness; R11.2 Nausea with vomiting, unspecified; Z96.652 Presence of left artificial knee joint; M17.12 Unilateral primary osteoarthritis, left knee; I10 Essential (primary) hypertension

== ENCOUNTER 2022-02-04 15:35 | Inpatient (IN) ==
[2022-02-05] MEDS: XANAX PO PRN ×2 (00:34→20:21)
[2022-02-05] MEDS: SYNTHROID 75 mcg TAB PO SCH (05:41)
[2022-02-05] MEDS: CYMBALTA PO SCH (08:57)
[2022-02-05] MEDS: HYZAAR 50/12.5 MG PO SCH (08:57)
[2022-02-05] MEDS: MICRO K EXTEN CAP 10 MEQ PO SCH ×2 (08:57→20:21)
[2022-02-05 09:20] LABS: BASOPHILS # (AUTO) 0.1 X10^3/uL (0.0-0.1); BASOPHILS % (AUTO) 1.3 % (0.2-1.0); EOSINOPHILS # (AUTO) 0.3 x10^3/uL (0.0-0.2); EOSINOPHILS % (AUTO) 4.1 % (0.9-2.9); HEMATOCRIT 32.9 % (36.0-47.0); HEMOGLOBIN 11.2 g/dL (12.0-16.0); LYMPHOCYTES # (AUTO) 1.3 X10^3/uL (1.3-2.9); LYMPHOCYTES % (AUTO) 18.4 % (21.0-51.0); MEAN CORPUSCULAR HEMOGLOBIN 26.9 pg (27.0-34.0); MEAN CORPUSCULAR VOLUME 79.1 fL (80.0-100.0); MONOCYTES # (AUTO) 0.7 x10^3/uL (0.3-0.8); MONOCYTES % (AUTO) 10.5 % (0.0-13.0); NEUTROPHILS # (AUTO) 4.5 x10^3/uL (2.2-4.8); NEUTROPHILS % (AUTO) 65.7 % (42.0-75.0); RED BLOOD COUNT 4.17 X10^6/uL (3.5-5.4); RED CELL DISTRIBUTION WIDTH 14.8 % (11.6-16.5); WHITE BLOOD COUNT 6.9 X10^3/uL (3.6-10.0)
[2022-02-05 09:52] LABS: ALANINE AMINOTRANSFERASE 23 Units/L (12-78); ALBUMIN 3.4 g/dL (3.4-5.0); ALKALINE PHOSPHATASE 86 Units/L (46-116); ASPARTATE AMINO TRANSFERASE 20 Units/L (15-37); BLOOD UREA NITROGEN 42 mg/dL (7-18); CALCIUM 9.7 mg/dL (8.5-10.1); CARBON DIOXIDE 29.5 mmol/L (21-32); CHLORIDE 102 mmol/L (98-107); COR NA(FOR HYPERGLY) 142 mmol/L (136-145); CREATININE 1.65 mg/dL (0.55-1.02); SODIUM 141 mmol/L (136-145); TOTAL PROTEIN 7.1 g/dL (6.4-8.2); eGFR NON BLACK RACES 32 (>60)
[2022-02-05] MEDS: LOVENOX INJ 40 MG SYR SC SCH (11:32)
[2022-02-05 12:10] LABS: BILIRUBIN,URINE NEGATIVE (NEGATIVE); BLOOD/HEMOGLOBIN,URINE 1+ (NEGATIVE); GLUCOSE, URINE NEGATIVE (NEGATIVE); KETONES,URINE NEGATIVE (NEGATIVE); LEUKOCYTE ESTERASE ,URINE 3+ (NEGATIVE); NITRITES,URINE NEGATIVE (NEGATIVE); PH,URINE 6.5 (5.0 - 8.0); PROTEIN,URINE NEGATIVE (NEGATIVE); UROBILINOGEN,URINE NORMAL (NORMAL)
[2022-02-05 12:18] LABS: APPEARANCE,URINE SLIGHTLY HAZY (CLEAR); BACTERIA,URINE TRACE /HPF (NEGATIVE); COLOR,URINE YELLOW (YELLOW); SQUAMOUS EPITHELIAL CELL,UR FEW /HPF (NEGATIVE)
--- NOTE | 2022-02-05 13:13 | DR.H&P ---
H&P - History & Physical for Day of: H&P Date: 02/04/22 - Chief Complaint Chief Complaint: HERE FOR REHAB THERAPY - History of Present Illness History of Present Illness: PT IS 71 WF ADMITTED FOR SWING BED THERAPY FOLLOWING AND FALL WITH LLE FRACTURE. PT WAS TRANSFERRED FROM ACUTE CARE AT [facility]. PT REPORTS SHE HAD SYNCOPAL EPISODE RESULTING IN FALL AND LLE FRACTURE. PT IS IN ORTHO BOOT TO LLE FOLLOWING ORTHO TREATMENT. PT HAS PMH OF HTN, RENAL DISEASE, OA, LSPINE DDD. PT ADMITTED FOR THERAPY. - Past Medical History Past Medical History: Hypertension, Dyslipidemia, Depression, Hyperthyroidism, Anemia, GERD, Arthritis, Gout - Past Surgical History Surgical History: Appendectomy, Cholecystectomy, Hysterectomy, Joint Replacement, Ortho Surgery - Family History Family Medical History: [place], Coronary Artery Disease, Heart Failure - Social History Does patient currently use any type of tobacco product: No Have you used tobacco products in the last 12 months: No Type of Tobacco Use: None Does any household member use tobacco: No Alcohol Use: None Drug Use: None Risks, benefits, and alternatives of opioids discussed: No Prescription drug monitoring program results: PDMP reviewed and no concerns identified - Medications Home Medications: No Known Drug Allergies Allergy (Verified 12/11/21 19:27) CONTINUE taking the following medications losartan 100 mg-hydrochlorothiazide 25 mg tablet 1 tab PO DAILY 02/04/22 [History] torsemide 20 mg tablet 40 mg PO BID 02/04/22 [History] - Review of Systems Constitutional: Weakness, Malaise Eyes: No Symptoms Reported ENT: No Symptoms Reported Respiratory: No Symptoms Reported Cardiovascular: No Symptoms Reported Gastrointestinal: Nausea Genitourinary: Frequency Musculoskeletal: Back Pain, Leg Pain, Foot Pain Skin: No Symptoms Reported Neurological: Weakness (GENERALIZED MUSCLE WEAKNESS) - Physical Exam Vital Signs: Temperature 98.3 F Pulse Rate [Left] 78 Respiratory Rate 20 Blood Pressure [Right Arm] 178/76 O2 Sat by Pulse Oximetry 96 Oriented: Normal Eyes: Normal Ear: Normal Nose: Normal Throat: Dry Respiratory: RLL Diminished, LLL Diminished Cardiovascular: Normal, Edema (TRACE BILATERAL LOWER EXTREMITY EDEMA) Auscultation: Bowel Sounds: Normal Palpation: Normal Tenderness: Normal Skin: Decreased Turgur Musculoskeletal: Left, Leg, Ankle, Foot, Back:Lumbar, Tender Psychiatric: Normal Mood Description: Calm Speech Pattern: Clear, Appropriate - Assessment/Plan (1) Fracture of left lower leg Qualifiers: Fracture healing: with routine healing Status: Acute (2) UTI (urinary tract infection) Status: Acute Plan: IV ROCEPHIN (3) Weakness generalized Status: Acute Plan: ADMIT TO SWING BED STATUS FOR THERAPY. ROUTINE LABS. VERIFY AND RESUME HOME MEDICATION. BP CONTROL. PAIN CONTROL, PT/OT (4) H/O TIA (transient ischemic attack) and stroke Status: Acute (5) GERD (gastroesophageal reflux disease) Status: Chronic (6) Hypertension Status: Chronic (7) Hyperthyroidism Status: Chronic - Allergies Allergies/Adverse Reactions: Allergies Allergy/AdvReac Type Severity Reaction Status Date / Time No Known Drug Allergies Allergy Verified 12/11/21 19:27
[2022-02-05] MEDS: ROCEPHIN VIAL 1 GRAM 1 G in NS 100 ML IV 100 ML IV SCH (13:24)
[2022-02-05] MEDS: NS 1,000 ML IV 1,000 ML IV SCH (13:24)
--- NOTE | 2022-02-05 13:51 | RAD ---
HISTORYHX SYNCOPE Relevant Clinical InformationSTUDYCHEST, 1 VIEWCOMPARISONNoneFINDINGSThe trachea is midline. The cardiac silhouette is unremarkable. The lungs are clear without focal infiltrate or effusion. The bony thorax is unremarkable.IMPRESSIONNo acute cardiopulmonary findings .Electronically signed by: EARNEST PAGAN (Feb 05, 2022 13:49:16)
--- NOTE | 2022-02-05 14:34 | PT/OTEVAL ---
PT/OT OBJECTIVES - HISTORY Prescription: PT Consult Diagnosis: s/p L Nondisplacted Bimalleolar Fracture Precautions: Touchdown WB LLE with CAM Boot, Fall Risk PMH: Nondisplaced L Bimalleolar Fracture (01/29/2022) s/p Fall at home; Weakness, Anemia, Depression, Dyslipidemia, GOUT, Neuropathy, L Shoulder OA/Spurs, Lumbar DDD with Chronic Back Pain, Urinary Incontinence, Constipation, Arthritis, Cholecystitis, Thyroid Disease, Hard of Hearing, Fibromyalgia, HTN, Hiatal Hernia, GERD, High Cholesterol, Heart Burn, Hysterectomy (1998), Cholecystectomy (2013), Laparatomy (1971), L TKR (07/2021) Prior Level of Function: Independent Other: Pt resides in split level home with her ( is unable to care for pt at home due to his own history of back pain). Pt states that there is 1 step to enter her home from the carport, which then leads them into a den. From the den there is 2 steps up to get to the rest of the house (states that there is enough room to put in a ramp if needed). Pt also reports on to get into the laundry room there is 2 steps down. Prior to fall, pt reports being independent with all mobility tasks with occasional use of SPC but that she was limited on her standing tolerance/walking due to back pain (reports that she was going through pre-op testing to have back surgery). Pt does report that she continues to sleep in an adjustable hospital bed as it helps with comfort from back pain. DME: Hospital Bed, FWW, BSC, wheelchair (which she states will not fit through bedroom doors), shower chair. - COGNITION Mental Status: Alert, Oriented, Name, Date, Place, Purpose Communication Status: Verbal Ability to Follow Directions: 3 Step Memory Loss: None - PAIN Ankle Pain Scale: Discomfort (1-2) Comments: 2/10 with LE in dependent position Back Pain Scale: Moderate (5-6) Comments: / to low back region "It just always hurts anymore" - BED MOBILITY Rolling: Independent Scooting: Independent - TRANSFERS Supine to Sit: Independent Sit to Stand: Supervision, Minimal Sit to Stand Comment: CGA with ability to maintain TDWB to LLE with CAM boot donned. Sit or Stand Pivot: Supervision, Minimal Sit or Stand Pivot Comment: CGA with ability to maintain TDWB to LLE with CAM boot donned. Safety (requires cues for:): Weight Bearing Precaution Safety Comment: Review of WB precautions to LLE and need to have CAM boot donned - BALANCE Static Sitting: Good Standing: Fair Dynamic Sitting: Good Standing: Poor - NEUROMOTOR/SENSATION Wilber. Lower Ext Sensation: WFL Coordination: WFL Proprioception: WFL - HAND DOMINANCE Extremity Function: Hand Dominance: Right - ROM Left LE Muscle Tone: WFL Right LE Muscle Tone: WFL - STRENGTH Left LE Other comment: L Hip: 3+/5, L Knee: 4-/5, L Ankle: NA due to fractures Bilateral UE Strength Number: 3 Right LE Strength Number: 4 Other comment: 4+/5 - GAIT Pt. ambulates how many feet?: 5 Amount of assistance required: Minimal Type of Assistive Device: Rolling Walker Comments: Pt able to maintain TDWB; however, pt difficulty picking up RLE to advance PT/OT ASSESSMENT - PT Problem List: Decreased Bed Mobility, Decreased Transfers, Decreased Gait, Decreased Balance, Decreased LE Strength - PT GOALS Short Term Goals Days: 10 Mobility: Pt will perform supine <> sit with mod I Transfers: Pt will perform functional transfers with mod I while maintaining TDWB Gait: Pt will ambulate 10ft wtih FWW with CGA while maintaining TDWB Balance: Pt will increase static standing balance to fair+ ROM/Strength: Pt will increase RLE strength to 5/5 Bistro Attendant Goals Days: 20 Gait: Pt will ambulate 25ft with FWW with supervision Balance: Pt will increase dynamic standing balance to fair/fair+ ROM/Strength: Pt will increase L hip and knee strength to 5/5 Others: Pt will ascend/descend 2 stairs w/ supervision & maintaining WB precautions - PATIENT GOALS Patient/Family Goals: "Do what I can to get stronger and get back home" Goals Discussed with Patient/Family: Yes Rehabilitation Potential: Good to meet stated goals Justification for Potential: Facilitate highest level of function & safe discharge planning. If yes, explain: Pt TDWB to LLE and has multiple steps within home. - PLAN Suggested Treatment Plan: Bed Mobility Training, Therapeutic Activity, Gait Training, Neuro Re-education, Therapeutic Ex with HEP, Home Management, Patient Education - FREQUENCY AND DURATION PT: 5x per week x 20 days Expected Continuation of Care at Discharge: Home Health Anticipated Equipment Needs: Pt may need own wheelchair and ramp.
--- NOTE | 2022-02-05 15:23 | PT/OTEVAL ---
PT/OT OBJECTIVES - HISTORY Prescription: OT consult Diagnosis: acute fx of L fibular, L medial malleolus Precautions: TDWB LLE, fall risk Prior Level of Function: Independent Other: Patient reports she lives with his in a 1 story home that has a few steps within the main living area of the house. Prior to fall on 01/29/22, she was independent with BADLs and IADLs. Patient reports she fell at home when she was walking inside her home and passed out. - COGNITION Mental Status: Alert, Oriented, Name, Date, Place, Purpose Communication Status: Verbal Ability to Follow Directions: 3 Step Memory Loss: None - PAIN Ankle Comments: 09/24 with LE in dependent position Back Pain Scale: Moderate (5-6) Comments: 12/22 to low back region "It just always hurts now" Left Knee Pain Scale: Discomfort (1-2) Comments: 11/22 to L knee - BED MOBILITY Rolling: Independent - TRANSFERS Supine to Sit: Supervision Sit to Stand: Supervision Sit or Stand Pivot: Not Tested Safety Comment: Pt independently complies with WB precaution - ADL'S Feeding: Independent, Setup Grooming: Independent, Setup Grooming: at EOB Upper Body ADL: Independent, Setup Upper Body ADL Comment: at EOB Lower Body ADL: Moderate Lower Body ADL: To feed clothing through Cam boot Toileting: Moderate Toileting Comment: BSC - BALANCE Static Sitting: Good Standing: Fair Dynamic Sitting: Good Standing: Poor - NEUROMOTOR/SENSATION Wilber. Lower Ext Sensation: WFL Coordination: WFL Proprioception: WFL - HAND DOMINANCE Extremity Function: Hand Dominance: Right - ROM Bilateral UE ROM: WFL Muscle Tone: WFL - STRENGTH Left LE Other comment: L Hip: 3+/5, L Knee: 4-/5, L Ankle: NA due to fractures Bilateral UE Strength Number: 3 Right LE Strength Number: 4 Other comment: 4+/5 PT/OT ASSESSMENT - OT Problem List: Decreased Mobility ADL's, Decreased Dressing, Decreased Bathing, Decreased UE Strength, Other Other, comment: Decreased standing balance w/ FWW - PT GOALS Short Term Goals Days: 10 Mobility: Pt will perform supine <> sit with mod I Transfers: Pt will perform functional transfers with mod I while maintaining TDWB Gait: Pt will ambulate 10ft wtih FWW with CGA while maintaining TDWB Balance: Pt will increase static standing balance to fair+ ROM/Strength: Pt will increase RLE strength to 5/5 Custodial Goals Days: 20 Gait: Pt will ambulate 25ft with FWW with supervision Balance: Pt will increase dynamic standing balance to fair/fair+ ROM/Strength: Pt will increase L hip and knee strength to 5/5 Others: Pt will ascend/descend 2 stairs w/ supervision & maintaining WB precautions - OT GOALS Short Term Goals Days: 10 Mobility for ADL's: Will demonstrate safe functional transfer abiding by WB precautions w/ [place] Dressing: Will demonstrate UB and LB dressing w/ assist to feed clothing through boot Bathing: Will demonstrate UB and LB bathing w/ Belen. Upper Ext. Strength/Use: Will improve BUE strength to 4-/5 for BADLs and functional transfers. Other: Will tolerate >20 min of functional activities. Custodial Goals Days: 20 Mobility for ADL's: Will demonstrate safe functional transfer abiding by WB precautions w/ Supv Dressing: Will demonstrate UB and LB dressing w/ Mod. Ind. Bathing: Will demonstrate UB and LB bathing w/ Mod Ind. Upper Ext. Strength/Use: Will improve BUE strength to 4/5 for BADLs and functional transfers. Other: Will tolerate >30 min of functional activities. - PATIENT GOALS Patient/Family Goals: To get stronger and go back home Goals Discussed with Patient/Family: Yes Rehabilitation Potential: Good Justification for Potential: Higher PLOF, motivated, supportive family Weakness and Barriers: None - PLAN Suggested Treatment Plan: Therapeutic Activity, Self Care Training, Therapeutic Ex with HEP, Patient Education, Family Education - FREQUENCY AND DURATION OT: 5x/wk x 20 days Expected Continuation of Care at Discharge: Home, Home Health
[2022-02-05] MEDS: LYRICA CAP 150 mg PO PRN (20:21)
[2022-02-06] MEDS: NORCO 7.5/325 MG TAB PO PRN (04:49)
[2022-02-06] MEDS: SYNTHROID 75 mcg TAB PO SCH (06:00)
[2022-02-06] MEDS: CYMBALTA PO SCH (09:03)
[2022-02-06] MEDS: LOVENOX INJ 40 MG SYR SC SCH (09:03)
[2022-02-06] MEDS: MICRO K EXTEN CAP 10 MEQ PO SCH ×2 (09:03→20:42)
[2022-02-06] MEDS: HYZAAR 50/12.5 MG PO SCH (09:03)
[2022-02-06] MEDS: ROCEPHIN VIAL 1 GRAM 1 G in NS 100 ML IV 100 ML IV SCH (09:05)
[2022-02-06] MEDS: LYRICA CAP 150 mg PO PRN ×2 (09:30→20:42)
[2022-02-06] MEDS: NS 1,000 ML IV 1,000 ML IV SCH (14:07)
[2022-02-06] MEDS: XANAX PO PRN (20:42)
[2022-02-07] MEDS: SYNTHROID 75 mcg TAB PO SCH (06:08)
[2022-02-07] MEDS: CYMBALTA PO SCH (08:12)
[2022-02-07] MEDS: HYZAAR 50/12.5 MG PO SCH (08:12)
[2022-02-07] MEDS: MICRO K EXTEN CAP 10 MEQ PO SCH ×2 (08:12→20:23)
[2022-02-07] MEDS: LOVENOX INJ 40 MG SYR SC SCH (08:13)
[2022-02-07] MEDS: ROCEPHIN VIAL 1 GRAM 1 G in NS 100 ML IV 100 ML IV SCH (08:13)
[2022-02-07] MEDS: NORCO 7.5/325 MG TAB PO PRN ×2 (08:21→18:03)
[2022-02-07] MEDS: NS 1,000 ML IV 1,000 ML IV SCH (18:01)
[2022-02-07] MEDS: XANAX PO PRN (20:23)
[2022-02-07] MEDS: COLACE CAP 100 MG PO SCH (20:23)
[2022-02-08 05:12] LABS: BASOPHILS % (AUTO) 0.5 % (0.2-1.0); EOSINOPHILS # (AUTO) 0.6 x10^3/uL (0.0-0.2); EOSINOPHILS % (AUTO) 6.7 % (0.9-2.9); HEMATOCRIT 30.6 % (36.0-47.0); HEMOGLOBIN 10.5 g/dL (12.0-16.0); LYMPHOCYTES # (AUTO) 2.2 X10^3/uL (1.3-2.9); LYMPHOCYTES % (AUTO) 25.8 % (21.0-51.0); MEAN CORPUSCULAR HEMOGLOBIN 27.7 pg (27.0-34.0); MEAN CORPUSCULAR HGB CONC 34.3 g/dL (33.0-35.0); MEAN CORPUSCULAR VOLUME 80.6 fL (80.0-100.0); MEAN PLATELET VOLUME 10.3 fL (7.4-11.0); MONOCYTES % (AUTO) 11.8 % (0.0-13.0); NEUTROPHILS # (AUTO) 4.7 x10^3/uL (2.2-4.8); NEUTROPHILS % (AUTO) 55.2 % (42.0-75.0); RED BLOOD COUNT 3.79 X10^6/uL (3.5-5.4); RED CELL DISTRIBUTION WIDTH 14.6 % (11.6-16.5); WHITE BLOOD COUNT 8.6 X10^3/uL (3.6-10.0)
[2022-02-08] MEDS: NORCO 7.5/325 MG TAB PO PRN ×2 (05:25→15:16)
[2022-02-08 05:28] LABS: ALANINE AMINOTRANSFERASE 29 Units/L (12-78); ALBUMIN 3.2 g/dL (3.4-5.0); ALKALINE PHOSPHATASE 84 Units/L (46-116); ASPARTATE AMINO TRANSFERASE 24 Units/L (15-37); BLOOD UREA NITROGEN 26 mg/dL (7-18); CALCIUM 9.3 mg/dL (8.5-10.1); CARBON DIOXIDE 26.4 mmol/L (21-32); CHLORIDE 103 mmol/L (98-107); COR CA(FOR HYPOALB) 9.9 mg/dL (8.5-10.1); CREATININE 1.31 mg/dL (0.55-1.02); SODIUM 138 mmol/L (136-145); TOTAL PROTEIN 6.7 g/dL (6.4-8.2); eGFR NON BLACK RACES 42 (>60)
[2022-02-08] MEDS: SYNTHROID 75 mcg TAB PO SCH (06:00)
[2022-02-08] MEDS: CYMBALTA PO SCH (08:02)
[2022-02-08] MEDS: LOVENOX INJ 40 MG SYR SC SCH (08:02)
[2022-02-08] MEDS: HYZAAR 50/12.5 MG PO SCH (08:02)
[2022-02-08] MEDS: MICRO K EXTEN CAP 10 MEQ PO SCH ×2 (08:03→21:11)
[2022-02-08] MEDS: ROCEPHIN VIAL 1 GRAM 1 G in NS 100 ML IV 100 ML IV SCH (08:03)
[2022-02-08] MEDS: NS 1,000 ML IV 1,000 ML IV SCH (14:28)
[2022-02-08] MEDS: LYRICA CAP 150 mg PO PRN ×2 (15:15→21:11)
[2022-02-08] MEDS: COLACE CAP 100 MG PO SCH (21:11)
[2022-02-08] MEDS: XANAX PO PRN (21:11)
[2022-02-09] MEDS: SYNTHROID 75 mcg TAB PO SCH (05:35)
[2022-02-09] MEDS: NORCO 7.5/325 MG TAB PO PRN (08:30)
[2022-02-09] MEDS: CYMBALTA PO SCH (08:53)
[2022-02-09] MEDS: HYZAAR 50/12.5 MG PO SCH (08:54)
[2022-02-09] MEDS: MICRO K EXTEN CAP 10 MEQ PO SCH ×2 (08:54→20:11)
[2022-02-09] MEDS: LOVENOX INJ 40 MG SYR SC SCH (08:54)
[2022-02-09] MEDS: ROCEPHIN VIAL 1 GRAM 1 G in NS 100 ML IV 100 ML IV SCH (08:54)
[2022-02-09] MEDS: NS 1,000 ML IV 1,000 ML IV SCH (13:44)
[2022-02-09] MEDS ORDERED: MILK OF MAGNESIA PO PRN (14:02)
[2022-02-09] MEDS: LYRICA CAP 150 mg PO PRN (20:11)
[2022-02-09] MEDS: XANAX PO PRN (20:11)
[2022-02-09] MEDS: COLACE CAP 100 MG PO SCH (20:11)
[2022-02-10] MEDS: SYNTHROID 75 mcg TAB PO SCH (06:18)
[2022-02-10] MEDS: CYMBALTA PO SCH (09:52)
[2022-02-10] MEDS: HYZAAR 50/12.5 MG PO SCH (09:52)
[2022-02-10] MEDS: ROCEPHIN VIAL 1 GRAM 1 G in NS 100 ML IV 100 ML IV SCH (09:53)
[2022-02-10] MEDS: LOVENOX INJ 40 MG SYR SC SCH (09:53)
[2022-02-10] MEDS: MICRO K EXTEN CAP 10 MEQ PO SCH ×2 (09:53→21:17)
[2022-02-10] MEDS: NS 1,000 ML IV 1,000 ML IV SCH ×2 (10:00→14:29)
[2022-02-10] MEDS: NORCO 7.5/325 MG TAB PO PRN (16:15)
[2022-02-10] MEDS: LYRICA CAP 150 mg PO PRN (21:17)
[2022-02-10] MEDS: COLACE CAP 100 MG PO SCH (21:17)
[2022-02-10] MEDS: XANAX PO PRN (21:18)
[2022-02-11] MEDS: SYNTHROID 75 mcg TAB PO SCH (06:01)
[2022-02-11] MEDS: HYZAAR 50/12.5 MG PO SCH (08:59)
[2022-02-11] MEDS: MICRO K EXTEN CAP 10 MEQ PO SCH ×2 (09:00→21:30)
[2022-02-11] MEDS: CYMBALTA PO SCH (09:00)
[2022-02-11] MEDS: LOVENOX INJ 40 MG SYR SC SCH (09:00)
[2022-02-11] MEDS: ROCEPHIN VIAL 1 GRAM 1 G in NS 100 ML IV 100 ML IV SCH (09:00)
[2022-02-11] MEDS: NORCO 7.5/325 MG TAB PO PRN (09:04)
[2022-02-11] MEDS: NS 1,000 ML IV 1,000 ML IV SCH (14:17)
[2022-02-11] MEDS: LYRICA CAP 150 mg PO PRN (21:30)
[2022-02-11] MEDS: COLACE CAP 100 MG PO SCH (21:30)
[2022-02-11] MEDS: XANAX PO PRN (21:30)
[2022-02-12] MEDS: NORCO 7.5/325 MG TAB PO PRN (02:18)
[2022-02-12] MEDS: SYNTHROID 75 mcg TAB PO SCH (06:03)
[2022-02-12] MEDS: ROCEPHIN VIAL 1 GRAM 1 G in NS 100 ML IV 100 ML IV SCH (09:13)
[2022-02-12] MEDS: LOVENOX INJ 40 MG SYR SC SCH (09:39)
[2022-02-12] MEDS: MICRO K EXTEN CAP 10 MEQ PO SCH ×2 (09:40→21:19)
[2022-02-12] MEDS: HYZAAR 50/12.5 MG PO SCH (09:40)
[2022-02-12] MEDS: CYMBALTA PO SCH (09:40)
[2022-02-12] MEDS: LYRICA CAP 150 mg PO PRN ×2 (12:06→21:19)
[2022-02-12 12:37] LABS: BASOPHILS # (AUTO) 0.1 X10^3/uL (0.0-0.1); BASOPHILS % (AUTO) 1.4 % (0.2-1.0); EOSINOPHILS # (AUTO) 0.5 x10^3/uL (0.0-0.2); EOSINOPHILS % (AUTO) 6.8 % (0.9-2.9); HEMATOCRIT 28.9 % (36.0-47.0); HEMOGLOBIN 9.9 g/dL (12.0-16.0); LYMPHOCYTES # (AUTO) 1.5 X10^3/uL (1.3-2.9); LYMPHOCYTES % (AUTO) 20.8 % (21.0-51.0); MEAN CORPUSCULAR HEMOGLOBIN 27.4 pg (27.0-34.0); MEAN CORPUSCULAR HGB CONC 34.3 g/dL (33.0-35.0); MEAN PLATELET VOLUME 9.4 fL (7.4-11.0); MONOCYTES # (AUTO) 0.8 x10^3/uL (0.3-0.8); MONOCYTES % (AUTO) 10.8 % (0.0-13.0); NEUTROPHILS # (AUTO) 4.4 x10^3/uL (2.2-4.8); NEUTROPHILS % (AUTO) 60.2 % (42.0-75.0); RED BLOOD COUNT 3.61 X10^6/uL (3.5-5.4); RED CELL DISTRIBUTION WIDTH 14.9 % (11.6-16.5); WHITE BLOOD COUNT 7.3 X10^3/uL (3.6-10.0)
[2022-02-12 12:48] LABS: ALANINE AMINOTRANSFERASE 27 Units/L (12-78); ALBUMIN 3.2 g/dL (3.4-5.0); ALKALINE PHOSPHATASE 91 Units/L (46-116); ASPARTATE AMINO TRANSFERASE 16 Units/L (15-37); BLOOD UREA NITROGEN 25 mg/dL (7-18); CALCIUM 9.9 mg/dL (8.5-10.1); CARBON DIOXIDE 31.8 mmol/L (21-32); CHLORIDE 103 mmol/L (98-107); COR CA(FOR HYPOALB) 10.5 mg/dL (8.5-10.1); CREATININE 1.31 mg/dL (0.55-1.02); SODIUM 138 mmol/L (136-145); TOTAL PROTEIN 7.1 g/dL (6.4-8.2); eGFR NON BLACK RACES 42 (>60)
[2022-02-12] MEDS: NS 1,000 ML IV 1,000 ML IV SCH (13:06)
[2022-02-12] MEDS: COLACE CAP 100 MG PO SCH (21:18)
[2022-02-12] MEDS: ZANAFLEX PO PRN (21:34)
[2022-02-13] MEDS: SYNTHROID 75 mcg TAB PO SCH (06:04)
[2022-02-13 08:24] VITALS: BMI 33.3
[2022-02-13] MEDS: CYMBALTA PO SCH (08:41)
[2022-02-13] MEDS: LOVENOX INJ 40 MG SYR SC SCH (08:41)
[2022-02-13] MEDS: ROCEPHIN VIAL 1 GRAM 1 G in NS 100 ML IV 100 ML IV SCH (08:41)
[2022-02-13] MEDS: MICRO K EXTEN CAP 10 MEQ PO SCH ×2 (08:41→21:04)
[2022-02-13] MEDS: HYZAAR 50/12.5 MG PO SCH (08:41)
--- NOTE | 2022-02-13 14:06 | PCM.PROG ---
Progress Note Progress Note for Day of Date of Exam: 02/13/22 Subjective Subjective: The patient reports she is doing well with no new complaints today. Pain remains controlled regarding her recent foot fracture. No new problems noted except that she has elevated blood pressure for the last couple of days. Past Medical Family Social History Allergies: Allergies No Known Drug Allergies Allergy (Verified 12/11/21 19:27) Review of Systems ROS: No change since H&P Vital Signs and I&O's Vital Signs: Temperature 97.8 F Pulse Rate [Right Brachial] 86 Pulse Rate [Left] 72 Respiratory Rate 20 Blood Pressure [Right Arm] 180/74 O2 Sat by Pulse Oximetry 97 Intake and Output: Intake & Output 02/11/22 02/12/22 02/13/22 02/14/22 11:59 11:59 11:59 11:59 Intake Total 2475 / 2475 1310 / 1310 550 / 550 Balance 2475 / 2475 1310 / 1310 550 / 550 Physical Exam Oriented: Normal Eyes: Normal Ear: Normal Nose: Normal Throat: Dry Respiratory: Normal Cardiovascular: Normal and Edema (TRACE BILATERAL LOWER EXTREMITY EDEMA) Auscultation: Bowel Sounds: Normal Tenderness: Normal Skin: Decreased [place] Musculoskeletal: Left, Leg, Ankle, Foot, Back:Lumbar and Tender Psychiatric: Normal Mood Description: Calm Speech Pattern: Clear and Appropriate Laboratory and Diagnostics Result Diagrams: 02/12/22 12:17 02/12/22 12:17 Labs: 02/05/22 11:35 Urine,Clean Catch Urine Culture - Final Laboratory WBC 7.3 X10^3/uL (3.6-10.0) 02/12/22 12:17 RBC 3.61 X10^6/uL (3.5-5.4) 02/12/22 12:17 Hgb 9.9 g/dL (12.0-16.0) L 02/12/22 12:17 Hct 28.9 % (36.0-47.0) L 02/12/22 12:17 MCV 80.0 fL (80.0-100.0) 02/12/22 12:17 MCH 27.4 pg (27.0-34.0) 02/12/22 12:17 MCHC 34.3 g/dL (33.0-35.0) 02/12/22 12:17 RDW 14.9 % (11.6-16.5) 02/12/22 12:17 Plt Count 239 X10^3/uL (150.0-450.0) 02/12/22 12:17 MPV 9.4 fL (7.4-11.0) 02/12/22 12:17 Neut % (Auto) 60.2 % (42.0-75.0) 02/12/22 12:17 Lymph % (Auto) 20.8 % (21.0-51.0) L 02/12/22 12:17 [place] % (Auto) 10.8 % (0.0-13.0) 02/12/22 12:17 Eos % (Auto) 6.8 % (0.9-2.9) H 02/12/22 12:17 Baso % (Auto) 1.4 % (0.2-1.0) H 02/12/22 12:17 Neut # (Auto) 4.4 x10^3/uL (2.2-4.8) 02/12/22 12:17 Lymph # (Auto) 1.5 X10^3/uL (1.3-2.9) 02/12/22 12:17 [place] # (Auto) 0.8 x10^3/uL (0.3-0.8) 02/12/22 12:17 Eos # (Auto) 0.5 x10^3/uL (0.0-0.2) H 02/12/22 12:17 Baso # (Auto) 0.1 X10^3/uL (0.0-0.1) 02/12/22 12:17 Absolute Nucleated RBC 0.1 /100WBC 02/12/22 12:17 Sodium 138 mmol/L (136-145) 02/12/22 12:17 Corrected Sodium TNP 02/12/22 12:17 Potassium 4.5 mmol/L (3.5-5.1) 02/12/22 12:17 Chloride 103 mmol/L (98-107) 02/12/22 12:17 Carbon Dioxide 31.8 mmol/L (21-32) 02/12/22 12:17 BUN 25 mg/dL (7-18) H 02/12/22 12:17 Creatinine 1.31 mg/dL (0.55-1.02) H 02/12/22 12:17 Est GFR (MDRD) Af Amer 51 (>60) L 02/12/22 12:17 Est GFR (MDRD) Non-Af 42 (>60) L 02/12/22 12:17 Glucose 94 mg/dL (65-99) 02/12/22 12:17 Calcium 9.9 mg/dL (8.5-10.1) 02/12/22 12:17 Corrected Calcium 10.5 mg/dL (8.5-10.1) H 02/12/22 12:17 Total Bilirubin 0.30 mg/dL (0.2-1.0) 02/12/22 12:17 AST 16 Units/L (15-37) 02/12/22 12:17 ALT 27 Units/L (12-78) 02/12/22 12:17 Alkaline Phosphatase 91 Units/L (46-116) 02/12/22 12:17 Total Protein 7.1 g/dL (6.4-8.2) 02/12/22 12:17 Albumin 3.2 g/dL (3.4-5.0) L 02/12/22 12:17 Globulin 3.9 g/dL (2.5-4.5) 02/12/22 12:17 Albumin/Globulin Ratio 0.8 Ratio (1.1-2.1) L 02/12/22 12:17 Specimen Type Clean catch urine 02/05/22 11:35 Urine Color Yellow (YELLOW) 02/05/22 11:35 Urine Appearance Slightly hazy (CLEAR) 02/05/22 11:35 Urine pH 6.5 (5.0 - 8.0) 02/05/22 11:35 Ur Specific [place] 1.010 (1.000-1.030) 02/05/22 11:35 Urine Protein Negative (NEGATIVE) 02/05/22 11:35 Urine Glucose (UA) Negative (NEGATIVE) 02/05/22 11:35 Urine Ketones Negative (NEGATIVE) 02/05/22 11:35 Urine Blood 1+ (NEGATIVE) 02/05/22 11:35 Urine Nitrite Negative (NEGATIVE) 02/05/22 11:35 Urine Bilirubin Negative (NEGATIVE) 02/05/22 11:35 Urine Urobilinogen Normal (NORMAL) 02/05/22 11:35 Ur Leukocyte Esterase 3+ (NEGATIVE) 02/05/22 11:35 Urine RBC 3-5 /HPF (0-3) A 02/05/22 11:35 Urine WBC 10-20 /HPF (0-5) A 02/05/22 11:35 Ur Squamous Epith Cells Few /HPF (NEGATIVE) 02/05/22 11:35 Urine Bacteria Trace /HPF (NEGATIVE) 02/05/22 11:35 Ur Culture Indicated? Yes/culture set up 02/05/22 11:35 SARS-CoV-2 (PCR) Negative (NEGATIVE) 02/04/22 21:27 Influenza Type A (PCR) Negative (NEGATIVE) 02/04/22 21: Influenza Type B (PCR) Negative (NEGATIVE) 02/04/22 21: RSV (PCR) Negative (NEGATIVE) 02/04/22 21:27 Plan (1) Fracture of left lower leg: Status: Acute Qualifiers: Fracture healing: with routine healing Plan: No change in treatment. (2) UTI (urinary tract infection): Status: Acute Plan: IV ROCEPHIN (3) Weakness generalized: Status: Acute Plan: ADMIT TO SWING BED STATUS FOR THERAPY ROUTINE LABS VERIFY AND RESUME HOME MEDICATION BP CONTROL PAIN CONTROL, PT/OT (4) H/O TIA (transient ischemic attack) and stroke: Status: Acute (5) GERD (gastroesophageal reflux disease): Status: Chronic (6) Hypertension: Status: Chronic Narrative Support Text: Elevated blood pressure today at 180/74. Blood pressure yesterday was 155/70. Plan: I will start the patient on metoprolol ER 25 mg 1 p.o. daily (7) Hyperthyroidism: Status: Chronic
[2022-02-13] MEDS: NS 1,000 ML IV 1,000 ML IV SCH (14:58)
[2022-02-13] MEDS: TOPROL XL PO SCH (15:15)
[2022-02-13] MEDS: NORCO 7.5/325 MG TAB PO PRN (18:40)
[2022-02-13] MEDS: COLACE CAP 100 MG PO SCH (21:04)
[2022-02-13] MEDS: LYRICA CAP 150 mg PO PRN (21:05)
[2022-02-13] MEDS: ZANAFLEX PO PRN (21:05)
[2022-02-14] MEDS: SYNTHROID 75 mcg TAB PO SCH (05:46)
[2022-02-14] MEDS: LOVENOX INJ 40 MG SYR SC SCH (08:19)
[2022-02-14] MEDS: CYMBALTA PO SCH (08:19)
[2022-02-14] MEDS: HYZAAR 50/12.5 MG PO SCH (08:19)
[2022-02-14] MEDS: MICRO K EXTEN CAP 10 MEQ PO SCH ×2 (08:20→21:13)
[2022-02-14] MEDS: ROCEPHIN VIAL 1 GRAM 1 G in NS 100 ML IV 100 ML IV SCH (08:20)
[2022-02-14] MEDS: TOPROL XL PO SCH (08:20)
[2022-02-14] MEDS: NS 1,000 ML IV 1,000 ML IV SCH (13:20)
[2022-02-14] MEDS: COLACE CAP 100 MG PO SCH (21:12)
[2022-02-14] MEDS: LYRICA CAP 150 mg PO PRN ×2 (21:14→21:15)
[2022-02-14] MEDS: ZANAFLEX PO PRN (21:15)
[2022-02-14] MEDS: NORCO 7.5/325 MG TAB PO PRN (22:42)
[2022-02-15] MEDS: SYNTHROID 75 mcg TAB PO SCH (05:49)
[2022-02-15 06:20] LABS: BASOPHILS # (AUTO) 0.1 X10^3/uL (0.0-0.1); BASOPHILS % (AUTO) 1.3 % (0.2-1.0); EOSINOPHILS # (AUTO) 0.4 x10^3/uL (0.0-0.2); EOSINOPHILS % (AUTO) 6.1 % (0.9-2.9); HEMATOCRIT 25.8 % (36.0-47.0); LYMPHOCYTES # (AUTO) 1.7 X10^3/uL (1.3-2.9); LYMPHOCYTES % (AUTO) 28.3 % (21.0-51.0); MEAN CORPUSCULAR HEMOGLOBIN 27.6 pg (27.0-34.0); MEAN CORPUSCULAR HGB CONC 34.8 g/dL (33.0-35.0); MEAN CORPUSCULAR VOLUME 79.3 fL (80.0-100.0); MEAN PLATELET VOLUME 9.4 fL (7.4-11.0); MONOCYTES # (AUTO) 0.7 x10^3/uL (0.3-0.8); MONOCYTES % (AUTO) 11.4 % (0.0-13.0); NEUTROPHILS # (AUTO) 3.3 x10^3/uL (2.2-4.8); NEUTROPHILS % (AUTO) 52.9 % (42.0-75.0); RED BLOOD COUNT 3.26 X10^6/uL (3.5-5.4); RED CELL DISTRIBUTION WIDTH 14.5 % (11.6-16.5); WHITE BLOOD COUNT 6.2 X10^3/uL (3.6-10.0)
[2022-02-15 06:23] LABS: BLOOD UREA NITROGEN 31 mg/dL (7-18); CALCIUM 9.6 mg/dL (8.5-10.1); CHLORIDE 105 mmol/L (98-107); CREATININE 1.39 mg/dL (0.55-1.02); SODIUM 139 mmol/L (136-145); eGFR NON BLACK RACES 40 (>60)
[2022-02-15 06:53] LABS: ALANINE AMINOTRANSFERASE 25 Units/L (12-78); ALBUMIN 2.8 g/dL (3.4-5.0); ALKALINE PHOSPHATASE 78 Units/L (46-116); ASPARTATE AMINO TRANSFERASE 19 Units/L (15-37); COR CA(FOR HYPOALB) 10.6 mg/dL (8.5-10.1); TOTAL PROTEIN 6.1 g/dL (6.4-8.2)
[2022-02-15] MEDS: CYMBALTA PO SCH (08:20)
[2022-02-15] MEDS: TOPROL XL PO SCH (08:20)
[2022-02-15] MEDS: HYZAAR 50/12.5 MG PO SCH (08:21)
[2022-02-15] MEDS: ROCEPHIN VIAL 1 GRAM 1 G in NS 100 ML IV 100 ML IV SCH (08:22)
[2022-02-15] MEDS: MICRO K EXTEN CAP 10 MEQ PO SCH ×2 (08:22→20:56)
[2022-02-15] MEDS: LOVENOX INJ 40 MG SYR SC SCH (08:23)
[2022-02-15] MEDS: NORCO 7.5/325 MG TAB PO PRN ×2 (12:10→13:33)
[2022-02-15] MEDS: XANAX PO PRN (13:00)
[2022-02-15] MEDS: NS 1,000 ML IV 1,000 ML IV SCH (14:13)
[2022-02-15] MEDS: COLACE CAP 100 MG PO SCH (20:54)
[2022-02-15] MEDS: LYRICA CAP 150 mg PO PRN (20:59)
[2022-02-15] MEDS: ZANAFLEX PO PRN (21:00)
[2022-02-16] MEDS: SYNTHROID 75 mcg TAB PO SCH (06:05)
[2022-02-16] MEDS: XANAX PO PRN ×2 (06:05→20:25)
[2022-02-16] MEDS: CYMBALTA PO SCH (09:30)
[2022-02-16] MEDS: ROCEPHIN VIAL 1 GRAM 1 G in NS 100 ML IV 100 ML IV SCH (09:30)
[2022-02-16] MEDS: TOPROL XL PO SCH (09:30)
[2022-02-16] MEDS: HYZAAR 50/12.5 MG PO SCH (09:30)
[2022-02-16] MEDS: MICRO K EXTEN CAP 10 MEQ PO SCH ×2 (09:30→20:18)
[2022-02-16] MEDS: LOVENOX INJ 40 MG SYR SC SCH (11:13)
[2022-02-16] MEDS: NS 1,000 ML IV 1,000 ML IV SCH (15:01)
[2022-02-16] MEDS: LYRICA CAP 150 mg PO PRN (20:18)
[2022-02-16] MEDS: COLACE CAP 100 MG PO SCH (20:18)
[2022-02-16] MEDS: NORCO 7.5/325 MG TAB PO PRN (20:19)
[2022-02-17] MEDS: SYNTHROID 75 mcg TAB PO SCH (05:41)
[2022-02-17] MEDS: ROCEPHIN VIAL 1 GRAM 1 G in NS 100 ML IV 100 ML IV SCH (08:20)
[2022-02-17] MEDS: LOVENOX INJ 40 MG SYR SC SCH (08:21)
[2022-02-17] MEDS: HYZAAR 50/12.5 MG PO SCH (08:21)
[2022-02-17] MEDS: CYMBALTA PO SCH (08:22)
[2022-02-17] MEDS: MICRO K EXTEN CAP 10 MEQ PO SCH ×2 (08:22→21:21)
[2022-02-17] MEDS: TOPROL XL PO SCH (08:22)
[2022-02-17] MEDS: NS 1,000 ML IV 1,000 ML IV SCH (17:04)
[2022-02-17] MEDS: NORCO 7.5/325 MG TAB PO PRN (20:45)
[2022-02-17] MEDS: XANAX PO PRN (20:55)
[2022-02-17] MEDS: COLACE CAP 100 MG PO SCH (21:20)
[2022-02-18] MEDS: SYNTHROID 75 mcg TAB PO SCH (05:38)
[2022-02-18 06:16] LABS: BASOPHILS % (AUTO) 0.4 % (0.2-1.0); EOSINOPHILS # (AUTO) 0.4 x10^3/uL (0.0-0.2); HEMATOCRIT 28.6 % (36.0-47.0); HEMOGLOBIN 9.9 g/dL (12.0-16.0); LYMPHOCYTES # (AUTO) 1.9 X10^3/uL (1.3-2.9); LYMPHOCYTES % (AUTO) 26.8 % (21.0-51.0); MEAN CORPUSCULAR HEMOGLOBIN 27.3 pg (27.0-34.0); MEAN CORPUSCULAR HGB CONC 34.5 g/dL (33.0-35.0); MEAN CORPUSCULAR VOLUME 79.2 fL (80.0-100.0); MEAN PLATELET VOLUME 9.7 fL (7.4-11.0); MONOCYTES # (AUTO) 0.7 x10^3/uL (0.3-0.8); MONOCYTES % (AUTO) 10.7 % (0.0-13.0); NEUTROPHILS # (AUTO) 3.9 x10^3/uL (2.2-4.8); NEUTROPHILS % (AUTO) 56.1 % (42.0-75.0); RED BLOOD COUNT 3.61 X10^6/uL (3.5-5.4); RED CELL DISTRIBUTION WIDTH 14.4 % (11.6-16.5)
[2022-02-18 06:23] LABS: ALANINE AMINOTRANSFERASE 31 Units/L (12-78); ALBUMIN 3.1 g/dL (3.4-5.0); ALKALINE PHOSPHATASE 87 Units/L (46-116); ASPARTATE AMINO TRANSFERASE 18 Units/L (15-37); BLOOD UREA NITROGEN 28 mg/dL (7-18); CALCIUM 9.7 mg/dL (8.5-10.1); CARBON DIOXIDE 26.5 mmol/L (21-32); CHLORIDE 106 mmol/L (98-107); COR CA(FOR HYPOALB) 10.4 mg/dL (8.5-10.1); CREATININE 1.25 mg/dL (0.55-1.02); SODIUM 141 mmol/L (136-145); TOTAL PROTEIN 6.5 g/dL (6.4-8.2); eGFR NON BLACK RACES 45 (>60)
[2022-02-18] MEDS: CYMBALTA PO SCH (09:30)
[2022-02-18] MEDS: HYZAAR 50/12.5 MG PO SCH (09:31)
[2022-02-18] MEDS: TOPROL XL PO SCH (09:31)
[2022-02-18] MEDS: ROCEPHIN VIAL 1 GRAM 1 G in NS 100 ML IV 100 ML IV SCH (09:31)
[2022-02-18] MEDS: LOVENOX INJ 40 MG SYR SC SCH (09:31)
[2022-02-18] MEDS: MICRO K EXTEN CAP 10 MEQ PO SCH ×2 (09:32→21:04)
[2022-02-18] MEDS: NORCO 7.5/325 MG TAB PO PRN (17:50)
[2022-02-18] MEDS: XANAX PO PRN (21:04)
[2022-02-18] MEDS: COLACE CAP 100 MG PO SCH (21:04)
--- NOTE | 2022-02-18 23:39 | PCM.PROG ---
Progress Note - Progress Note for Day of Date of Exam: 02/16/22 - Subjective Subjective: Patient is a 71 yo wm who was admitted as per hpi. Patient is currently under swing bed status. Patient is working with PT daily and tolerating well. Patient is pending a ramp being made and placed at her home due to steps. Expected delivery date is Tuesday, February 22, 2022. Pain is controlled a nd BMS normal. The patient reports she is doing well with no new complaints today. - Past Medical Family Social History Past Med/Fam/Surg Hx: No changes since H&P Allergies: Allergies No Known Drug Allergies Allergy (Verified 12/11/21 19:27) - Review of Systems ROS: No change since H&P - Vital Signs and I&O's Vital Signs: Temperature 98.0 F Pulse Rate [Right Brachial] 68 Pulse Rate [Left] 72 Respiratory Rate 18 Blood Pressure [Left Arm] 145/64 Blood Pressure [Right Arm] 158/67 O2 Sat by Pulse Oximetry 95 Intake and Output: Intake & Output 02/15/22 02/16/22 02/17/22 02/18/22 23:59 23:59 23:59 23:59 Intake Total 1610 / 1610 780 / 780 1840 / 1840 1675 / 1675 Balance 1610 / 1610 780 / 780 1840 / 1840 1675 / 1675 - Physical Exam Oriented: Normal Eyes: Normal Ear: Normal Nose: Normal Throat: Normal Respiratory: Normal Cardiovascular: Normal, Edema (TRACE BILATERAL LOWER EXTREMITY EDEMA) : Normal Auscultation: Bowel Sounds: Normal Palpation: Normal Tenderness: Normal Skin: Normal Musculoskeletal: Left, Leg, Ankle, Foot, Back:Lumbar, Tender Psychiatric: Normal Mood Description: Calm Affect: Normal Speech Pattern: Clear, Appropriate - Laboratory and Diagnostics Result Diagrams: 02/18/22 05:55 02/18/22 05:55 Labs: 02/05/22 11:35 Urine,Clean Catch Urine Culture - Final Laboratory WBC 7.0 X10^3/uL (3.6-10.0) 02/18/22 05:55 RBC 3.61 X10^6/uL (3.5-5.4) 02/18/22 05:55 Hgb 9.9 g/dL (12.0-16.0) L 02/18/22 05:55 Hct 28.6 % (36.0-47.0) L 02/18/22 05:55 MCV 79.2 fL (80.0-100.0) L 02/18/22 05:55 MCH 27.3 pg (27.0-34.0) 02/18/22 05:55 MCHC 34.5 g/dL (33.0-35.0) 02/18/22 05:55 RDW 14.4 % (11.6-16.5) 02/18/22 05:55 Plt Count 183 X10^3/uL (150.0-450.0) 02/18/22 05:55 MPV 9.7 fL (7.4-11.0) 02/18/22 05:55 Neut % (Auto) 56.1 % (42.0-75.0) 02/18/22 05:55 Lymph % (Auto) 26.8 % (21.0-51.0) 02/18/22 05:55 [place] % (Auto) 10.7 % (0.0-13.0) 02/18/22 05:55 Eos % (Auto) 6.0 % (0.9-2.9) H 02/18/22 05:55 Baso % (Auto) 0.4 % (0.2-1.0) 02/18/22 05:55 Neut # (Auto) 3.9 x10^3/uL (2.2-4.8) 02/18/22 05:55 Lymph # (Auto) 1.9 X10^3/uL (1.3-2.9) 02/18/22 05:55 [place] # (Auto) 0.7 x10^3/uL (0.3-0.8) 02/18/22 05:55 Eos # (Auto) 0.4 x10^3/uL (0.0-0.2) H 02/18/22 05:55 Baso # (Auto) 0.0 X10^3/uL (0.0-0.1) 02/18/22 05:55 Absolute Nucleated RBC 0.0 /100WBC 02/18/22 05:55 Sodium 141 mmol/L (136-145) 02/18/22 05:55 Corrected Sodium TNP 02/18/22 05:55 Potassium 4.6 mmol/L (3.5-5.1) 02/18/22 05:55 Chloride 106 mmol/L (98-107) 02/18/22 05:55 Carbon Dioxide 26.5 mmol/L (21-32) 02/18/22 05:55 BUN 28 mg/dL (7-18) H 02/18/22 05:55 Creatinine 1.25 mg/dL (0.55-1.02) H 02/18/22 05:55 Est GFR (MDRD) Af Amer 54 (>60) L 02/18/22 05:55 Est GFR (MDRD) Non-Af 45 (>60) L 02/18/22 05:55 Glucose 100 mg/dL (65-99) H 02/18/22 05:55 Calcium 9.7 mg/dL (8.5-10.1) 02/18/22 05:55 Corrected Calcium 10.4 mg/dL (8.5-10.1) H 02/18/22 05:55 Total Bilirubin 0.30 mg/dL (0.2-1.0) 02/18/22 05:55 AST 18 Units/L (15-37) 02/18/22 05:55 ALT 31 Units/L (12-78) 02/18/22 05:55 Alkaline Phosphatase 87 Units/L (46-116) 02/18/22 05:55 Total Protein 6.5 g/dL (6.4-8.2) 02/18/22 05:55 Albumin 3.1 g/dL (3.4-5.0) L 02/18/22 05:55 Globulin 3.4 g/dL (2.5-4.5) 02/18/22 05:55 Albumin/Globulin Ratio 0.9 Ratio (1.1-2.1) L 02/18/22 05:55 Specimen Type Clean catch urine 02/05/22 11:35 Urine Color Yellow (YELLOW) 02/05/22 11:35 Urine Appearance Slightly hazy (CLEAR) 02/05/22 11:35 Urine pH 6.5 (5.0 - 8.0) 02/05/22 11:35 Ur Specific [place] 1.010 (1.000-1.030) 02/05/22 11:35 Urine Protein Negative (NEGATIVE) 02/05/22 11:35 Urine Glucose (UA) Negative (NEGATIVE) 02/05/22 11:35 Urine Ketones Negative (NEGATIVE) 02/05/22 11:35 Urine Blood 1+ (NEGATIVE) 02/05/22 11:35 Urine Nitrite Negative (NEGATIVE) 02/05/22 11:35 Urine Bilirubin Negative (NEGATIVE) 02/05/22 11:35 Urine Urobilinogen Normal (NORMAL) 02/05/22 11:35 Ur Leukocyte Esterase 3+ (NEGATIVE) 02/05/22 11:35 Urine RBC 3-5 /HPF (0-3) A 02/05/22 11:35 Urine WBC 10-20 /HPF (0-5) A 02/05/22 11:35 Ur Squamous Epith Cells Few /HPF (NEGATIVE) 02/05/22 11:35 Urine Bacteria Trace /HPF (NEGATIVE) 02/05/22 11:35 Ur Culture Indicated? Yes/culture set up 02/05/22 11:35 SARS-CoV-2 (PCR) Negative (NEGATIVE) 02/04/22 21:27 Influenza Type A (PCR) Negative (NEGATIVE) 02/04/22 21:27 Influenza Type B (PCR) Negative (NEGATIVE) 02/04/22 21:27 RSV (PCR) Negative (NEGATIVE) 02/04/22 21:27 - Plan (1) Hypertension Status: Chronic (2) UTI (urinary tract infection) Status: Acute Plan: IV ROCEPHIN (3) Fracture of left lower extremity Status: Acute (4) Constipation Status: Acute
--- NOTE | 2022-02-18 23:47 | PCM.PROG ---
Progress Note - Progress Note for Day of Date of Exam: 02/18/22 - Subjective Subjective: Patient is a 71 yo wm who was admitted as per hpi. Patient is currently under swing bed status. Patient is working with PT daily and tolerating well. Patient is pending a ramp being made and placed at her home due to steps. Expected delivery date is Tuesday, February 22, 2022. Pain is controlled a nd BMS normal. The patient reports she is doing well with no new complaints today. - Past Medical Family Social History Past Med/Fam/Surg Hx: No changes since H&P Allergies: Allergies No Known Drug Allergies Allergy (Verified 12/11/21 19:27) - Review of Systems ROS: No change since H&P - Vital Signs and I&O's Vital Signs: Temperature 98.0 F Pulse Rate [Right Brachial] 68 Pulse Rate [Left] 72 Respiratory Rate 18 Blood Pressure [Left Arm] 145/64 Blood Pressure [Right Arm] 158/67 O2 Sat by Pulse Oximetry 95 Intake and Output: Intake & Output 02/15/22 02/16/22 02/17/22 02/18/22 23:59 23:59 23:59 23:59 Intake Total 1610 / 1610 780 / 780 1840 / 1840 1675 / 1675 Balance 1610 / 1610 780 / 780 1840 / 1840 1675 / 1675 - Physical Exam Oriented: Normal Eyes: Normal Ear: Normal Nose: Normal Throat: Normal Respiratory: Normal Cardiovascular: Normal, Edema (TRACE BILATERAL LOWER EXTREMITY EDEMA) : Normal Auscultation: Bowel Sounds: Normal Palpation: Normal Tenderness: Normal Skin: Normal Musculoskeletal: Left, Leg, Ankle, Foot, Back:Lumbar, Tender Psychiatric: Normal Mood Description: Calm Affect: Normal Speech Pattern: Clear, Appropriate - Laboratory and Diagnostics Result Diagrams: 02/18/22 05:55 02/18/22 05:55 Labs: 02/05/22 11:35 Urine,Clean Catch Urine Culture - Final Laboratory WBC 7.0 X10^3/uL (3.6-10.0) 02/18/22 05:55 RBC 3.61 X10^6/uL (3.5-5.4) 02/18/22 05:55 Hgb 9.9 g/dL (12.0-16.0) L 02/18/22 05:55 Hct 28.6 % (36.0-47.0) L 02/18/22 05:55 MCV 79.2 fL (80.0-100.0) L 02/18/22 05:55 MCH 27.3 pg (27.0-34.0) 02/18/22 05:55 MCHC 34.5 g/dL (33.0-35.0) 02/18/22 05:55 RDW 14.4 % (11.6-16.5) 02/18/22 05:55 Plt Count 183 X10^3/uL (150.0-450.0) 02/18/22 05:55 MPV 9.7 fL (7.4-11.0) 02/18/22 05:55 Neut % (Auto) 56.1 % (42.0-75.0) 02/18/22 05:55 Lymph % (Auto) 26.8 % (21.0-51.0) 02/18/22 05:55 [place] % (Auto) 10.7 % (0.0-13.0) 02/18/22 05:55 Eos % (Auto) 6.0 % (0.9-2.9) H 02/18/22 05:55 Baso % (Auto) 0.4 % (0.2-1.0) 02/18/22 05:55 Neut # (Auto) 3.9 x10^3/uL (2.2-4.8) 02/18/22 05:55 Lymph # (Auto) 1.9 X10^3/uL (1.3-2.9) 02/18/22 05:55 [place] # (Auto) 0.7 x10^3/uL (0.3-0.8) 02/18/22 05:55 Eos # (Auto) 0.4 x10^3/uL (0.0-0.2) H 02/18/22 05:55 Baso # (Auto) 0.0 X10^3/uL (0.0-0.1) 02/18/22 05:55 Absolute Nucleated RBC 0.0 /100WBC 02/18/22 05:55 Sodium 141 mmol/L (136-145) 02/18/22 05:55 Corrected Sodium TNP 02/18/22 05:55 Potassium 4.6 mmol/L (3.5-5.1) 02/18/22 05:55 Chloride 106 mmol/L (98-107) 02/18/22 05:55 Carbon Dioxide 26.5 mmol/L (21-32) 02/18/22 05:55 BUN 28 mg/dL (7-18) H 02/18/22 05:55 Creatinine 1.25 mg/dL (0.55-1.02) H 02/18/22 05:55 Est GFR (MDRD) Af Amer 54 (>60) L 02/18/22 05:55 Est GFR (MDRD) Non-Af 45 (>60) L 02/18/22 05:55 Glucose 100 mg/dL (65-99) H 02/18/22 05:55 Calcium 9.7 mg/dL (8.5-10.1) 02/18/22 05:55 Corrected Calcium 10.4 mg/dL (8.5-10.1) H 02/18/22 05:55 Total Bilirubin 0.30 mg/dL (0.2-1.0) 02/18/22 05:55 AST 18 Units/L (15-37) 02/18/22 05:55 ALT 31 Units/L (12-78) 02/18/22 05:55 Alkaline Phosphatase 87 Units/L (46-116) 02/18/22 05:55 Total Protein 6.5 g/dL (6.4-8.2) 02/18/22 05:55 Albumin 3.1 g/dL (3.4-5.0) L 02/18/22 05:55 Globulin 3.4 g/dL (2.5-4.5) 02/18/22 05:55 Albumin/Globulin Ratio 0.9 Ratio (1.1-2.1) L 02/18/22 05:55 Specimen Type Clean catch urine 02/05/22 11:35 Urine Color Yellow (YELLOW) 02/05/22 11:35 Urine Appearance Slightly hazy (CLEAR) 02/05/22 11:35 Urine pH 6.5 (5.0 - 8.0) 02/05/22 11:35 Ur Specific [place] 1.010 (1.000-1.030) 02/05/22 11:35 Urine Protein Negative (NEGATIVE) 02/05/22 11:35 Urine Glucose (UA) Negative (NEGATIVE) 02/05/22 11:35 Urine Ketones Negative (NEGATIVE) 02/05/22 11:35 Urine Blood 1+ (NEGATIVE) 02/05/22 11:35 Urine Nitrite Negative (NEGATIVE) 02/05/22 11:35 Urine Bilirubin Negative (NEGATIVE) 02/05/22 11:35 Urine Urobilinogen Normal (NORMAL) 02/05/22 11:35 Ur Leukocyte Esterase 3+ (NEGATIVE) 02/05/22 11:35 Urine RBC 3-5 /HPF (0-3) A 02/05/22 11:35 Urine WBC 10-20 /HPF (0-5) A 02/05/22 11:35 Ur Squamous Epith Cells Few /HPF (NEGATIVE) 02/05/22 11:35 Urine Bacteria Trace /HPF (NEGATIVE) 02/05/22 11:35 Ur Culture Indicated? Yes/culture set up 02/05/22 11:35 SARS-CoV-2 (PCR) Negative (NEGATIVE) 02/04/22 21:27 Influenza Type A (PCR) Negative (NEGATIVE) 02/04/22 21:27 Influenza Type B (PCR) Negative (NEGATIVE) 02/04/22 21:27 RSV (PCR) Negative (NEGATIVE) 02/04/22 21:27 - Plan (1) Hypertension Status: Chronic Plan: I will start the patient on metoprolol ER 25 mg 1 p.o. daily (2) UTI (urinary tract infection) Status: Acute Plan: D/C rocephin, course completed. No need for PO treatment. (3) Fracture of left lower extremity Status: Acute (4) Constipation Status: Acute
--- NOTE | 2022-02-18 23:50 | PCM.PROG ---
Progress Note - Progress Note for Day of Date of Exam: 02/11/22 - Subjective Subjective: Patient is a 71 yo wm who was admitted as per hpi. Patient is currently under swing bed status. Patient is working with PT daily and tolerating well. Pain is controlled and BMS normal. The patient reports she is doing well with no new complaints today. - Past Medical Family Social History Past Med/Fam/Surg Hx: No changes since H&P Allergies: Allergies No Known Drug Allergies Allergy (Verified 12/11/21 19:27) - Review of Systems ROS: No change since H&P - Vital Signs and I&O's Vital Signs: Temperature 98.0 F Pulse Rate [Right Brachial] 68 Pulse Rate [Left] 72 Respiratory Rate 18 Blood Pressure [Left Arm] 145/64 Blood Pressure [Right Arm] 158/67 O2 Sat by Pulse Oximetry 95 Intake and Output: Intake & Output 02/15/22 02/16/22 02/17/22 02/18/22 23:59 23:59 23:59 23:59 Intake Total 1610 / 1610 780 / 780 1840 / 1840 1675 / 1675 Balance 1610 / 1610 780 / 780 1840 / 1840 1675 / 1675 - Physical Exam Oriented: Normal Eyes: Normal Ear: Normal Nose: Normal Throat: Normal Respiratory: Normal Cardiovascular: Normal, Edema (TRACE BILATERAL LOWER EXTREMITY EDEMA) : Normal Auscultation: Bowel Sounds: Normal Palpation: Normal Tenderness: Normal Skin: Normal Musculoskeletal: Left, Leg, Ankle, Foot, Back:Lumbar, Tender Psychiatric: Normal Mood Description: Calm Affect: Normal Speech Pattern: Clear, Appropriate - Laboratory and Diagnostics Result Diagrams: 02/18/22 05:55 02/18/22 05:55 Labs: 02/05/22 11:35 Urine,Clean Catch Urine Culture - Final Laboratory WBC 7.0 X10^3/uL (3.6-10.0) 02/18/22 05:55 RBC 3.61 X10^6/uL (3.5-5.4) 02/18/22 05:55 Hgb 9.9 g/dL (12.0-16.0) L 02/18/22 05:55 Hct 28.6 % (36.0-47.0) L 02/18/22 05:55 MCV 79.2 fL (80.0-100.0) L 02/18/22 05:55 MCH 27.3 pg (27.0-34.0) 02/18/22 05:55 MCHC 34.5 g/dL (33.0-35.0) 02/18/22 05:55 RDW 14.4 % (11.6-16.5) 02/18/22 05:55 Plt Count 183 X10^3/uL (150.0-450.0) 02/18/22 05:55 MPV 9.7 fL (7.4-11.0) 02/18/22 05:55 Neut % (Auto) 56.1 % (42.0-75.0) 02/18/22 05:55 Lymph % (Auto) 26.8 % (21.0-51.0) 02/18/22 05:55 [place] % (Auto) 10.7 % (0.0-13.0) 02/18/22 05:55 Eos % (Auto) 6.0 % (0.9-2.9) H 02/18/22 05:55 Baso % (Auto) 0.4 % (0.2-1.0) 02/18/22 05:55 Neut # (Auto) 3.9 x10^3/uL (2.2-4.8) 02/18/22 05:55 Lymph # (Auto) 1.9 X10^3/uL (1.3-2.9) 02/18/22 05:55 [place] # (Auto) 0.7 x10^3/uL (0.3-0.8) 02/18/22 05:55 Eos # (Auto) 0.4 x10^3/uL (0.0-0.2) H 02/18/22 05:55 Baso # (Auto) 0.0 X10^3/uL (0.0-0.1) 02/18/22 05:55 Absolute Nucleated RBC 0.0 /100WBC 02/18/22 05:55 Sodium 141 mmol/L (136-145) 02/18/22 05:55 Corrected Sodium TNP 02/18/22 05:55 Potassium 4.6 mmol/L (3.5-5.1) 02/18/22 05:55 Chloride 106 mmol/L (98-107) 02/18/22 05:55 Carbon Dioxide 26.5 mmol/L (21-32) 02/18/22 05:55 BUN 28 mg/dL (7-18) H 02/18/22 05:55 Creatinine 1.25 mg/dL (0.55-1.02) H 02/18/22 05:55 Est GFR (MDRD) Af Amer 54 (>60) L 02/18/22 05:55 Est GFR (MDRD) Non-Af 45 (>60) L 02/18/22 05:55 Glucose 100 mg/dL (65-99) H 02/18/22 05:55 Calcium 9.7 mg/dL (8.5-10.1) 02/18/22 05:55 Corrected Calcium 10.4 mg/dL (8.5-10.1) H 02/18/22 05:55 Total Bilirubin 0.30 mg/dL (0.2-1.0) 02/18/22 05:55 AST 18 Units/L (15-37) 02/18/22 05:55 ALT 31 Units/L (12-78) 02/18/22 05:55 Alkaline Phosphatase 87 Units/L (46-116) 02/18/22 05:55 Total Protein 6.5 g/dL (6.4-8.2) 02/18/22 05:55 Albumin 3.1 g/dL (3.4-5.0) L 02/18/22 05:55 Globulin 3.4 g/dL (2.5-4.5) 02/18/22 05:55 Albumin/Globulin Ratio 0.9 Ratio (1.1-2.1) L 02/18/22 05:55 Specimen Type Clean catch urine 02/05/22 11:35 Urine Color Yellow (YELLOW) 02/05/22 11:35 Urine Appearance Slightly hazy (CLEAR) 02/05/22 11:35 Urine pH 6.5 (5.0 - 8.0) 02/05/22 11:35 Ur Specific [place] 1.010 (1.000-1.030) 02/05/22 11:35 Urine Protein Negative (NEGATIVE) 02/05/22 11:35 Urine Glucose (UA) Negative (NEGATIVE) 02/05/22 11:35 Urine Ketones Negative (NEGATIVE) 02/05/22 11:35 Urine Blood 1+ (NEGATIVE) 02/05/22 11:35 Urine Nitrite Negative (NEGATIVE) 02/05/22 11:35 Urine Bilirubin Negative (NEGATIVE) 02/05/22 11:35 Urine Urobilinogen Normal (NORMAL) 02/05/22 11:35 Ur Leukocyte Esterase 3+ (NEGATIVE) 02/05/22 11:35 Urine RBC 3-5 /HPF (0-3) A 02/05/22 11:35 Urine WBC 10-20 /HPF (0-5) A 02/05/22 11:35 Ur Squamous Epith Cells Few /HPF (NEGATIVE) 02/05/22 11:35 Urine Bacteria Trace /HPF (NEGATIVE) 02/05/22 11:35 Ur Culture Indicated? Yes/culture set up 02/05/22 11:35 SARS-CoV-2 (PCR) Negative (NEGATIVE) 02/04/22 21:27 Influenza Type A (PCR) Negative (NEGATIVE) 02/04/22 21:27 Influenza Type B (PCR) Negative (NEGATIVE) 02/04/22 21:27 RSV (PCR) Negative (NEGATIVE) 02/04/22 21:27 - Plan (1) Hypertension Status: Chronic (2) UTI (urinary tract infection) Status: Acute (3) Fracture of left lower extremity Status: Acute (4) Constipation Status: Acute
[2022-02-19] MEDS: NORCO 7.5/325 MG TAB PO PRN (04:24)
[2022-02-19] MEDS: SYNTHROID 75 mcg TAB PO SCH (05:35)
[2022-02-19 06:31] LABS: BASOPHILS # (AUTO) 0.1 X10^3/uL (0.0-0.1); BASOPHILS % (AUTO) 1.2 % (0.2-1.0); EOSINOPHILS # (AUTO) 0.3 x10^3/uL (0.0-0.2); EOSINOPHILS % (AUTO) 5.6 % (0.9-2.9); HEMATOCRIT 26.1 % (36.0-47.0); LYMPHOCYTES # (AUTO) 1.5 X10^3/uL (1.3-2.9); LYMPHOCYTES % (AUTO) 24.6 % (21.0-51.0); MEAN CORPUSCULAR HEMOGLOBIN 27.3 pg (27.0-34.0); MEAN CORPUSCULAR HGB CONC 34.4 g/dL (33.0-35.0); MEAN CORPUSCULAR VOLUME 79.2 fL (80.0-100.0); MEAN PLATELET VOLUME 9.9 fL (7.4-11.0); MONOCYTES # (AUTO) 0.7 x10^3/uL (0.3-0.8); MONOCYTES % (AUTO) 10.7 % (0.0-13.0); NEUTROPHILS # (AUTO) 3.5 x10^3/uL (2.2-4.8); NEUTROPHILS % (AUTO) 57.9 % (42.0-75.0); RED BLOOD COUNT 3.29 X10^6/uL (3.5-5.4); RED CELL DISTRIBUTION WIDTH 14.9 % (11.6-16.5); WHITE BLOOD COUNT 6.1 X10^3/uL (3.6-10.0)
[2022-02-19 06:52] LABS: ALANINE AMINOTRANSFERASE 29 Units/L (12-78); ALKALINE PHOSPHATASE 81 Units/L (46-116); ASPARTATE AMINO TRANSFERASE 18 Units/L (15-37); BLOOD UREA NITROGEN 26 mg/dL (7-18); CALCIUM 9.4 mg/dL (8.5-10.1); CARBON DIOXIDE 28.8 mmol/L (21-32); CHLORIDE 105 mmol/L (98-107); COR CA(FOR HYPOALB) 10.2 mg/dL (8.5-10.1); CREATININE 1.21 mg/dL (0.55-1.02); SODIUM 141 mmol/L (136-145); TOTAL PROTEIN 6.2 g/dL (6.4-8.2); eGFR NON BLACK RACES 46 (>60)
[2022-02-19] MEDS: LOVENOX INJ 40 MG SYR SC SCH (08:25)
[2022-02-19] MEDS: CYMBALTA PO SCH (08:25)
[2022-02-19] MEDS: HYZAAR 50/12.5 MG PO SCH (08:25)
[2022-02-19] MEDS: MICRO K EXTEN CAP 10 MEQ PO SCH (08:26)
[2022-02-19] MEDS: TOPROL XL PO SCH (08:26)
[2022-02-19 14:40] VITALS: BP 148/66
== END 2022-02-19 14:30 | disposition home health service (06) | DRG 560 ==
LOC: MED/SURG 20:48
PROVIDERS: ADMIT Internal Medicine; ATTEND Internal Medicine
DX: Z86.73 Personal history of transient ischemic attack (TIA), and cerebral infarction without residual deficits; K59.09 Other constipation; Z20.822 Contact with and (suspected) exposure to COVID-19; S82.845D Nondisplaced bimalleolar fracture of left lower leg, subsequent encounter for closed fracture with routine healing; F32.89 Other specified depressive episodes; K21.9 Gastro-esophageal reflux disease without esophagitis; F41.8 Other specified anxiety disorders; R53.1 Weakness; Z47.89 Encounter for other orthopedic aftercare; M51.36 Other intervertebral disc degeneration, lumbar region; R55 Syncope and collapse; I10 Essential (primary) hypertension; W18.39XD Other fall on same level, subsequent encounter; N39.0 Urinary tract infection, site not specified

== ENCOUNTER 2023-09-13 08:37 | Observation (INO) ==
[2023-09-13 08:58] VITALS: BMI 37.9
--- NOTE | 2023-09-13 09:01 | DR.EXTPAIN ---
HPI Time seen Time Seen by Provider: 09/13/23 09:00 PCP Primary Care Physician: Lottie Saldana Complaint/Symptoms Chief Complaint Doctor Comments: 72-year-old female brought in via EMS for evaluation. Patient got up several times to go to the bathroom in the middle the night, the last episode she became lightheaded, had vertigo, fell and landed on her buttocks. Having pain of the tailbone region. Pain is constant, sharp, worse with movement. Does not radiate. Nothing makes it better. Denies recent illness. No fever, chills, URI symptoms. Denies any nausea, vomiting or diarrhea. No urinary issues. No loss of consciousness, neck pain or back pain. EMS had pt stand at home, no leg issues. Chief Complaint:: Per EMS, patient fell this morning getting out of bed trying to go to the restroom. Patient states she got dizzy and fell backwards landing on her bottom. She states she did not hit her head and only having pain in her tailbone. States she takes lasix and gets up several times a night to pee. This was the first time she got dizzy. Self Treatment fo Chief Complaint: n/a COVID-19 Coronavirus risk:travel/contact w/high risk person: No Has patient experienced Coronavirus symptoms: No Nurses notes reviewed Nurses Notes Review: Yes Source History Provided: Patient and EMS Mode of arrival Mode of Arrival: EMS Timing Onset of Chief Complaint: 09/13/23 PMH PMH Past Medical History: Yes Past Medical History: Hypertension Past Medical History Comment: stage 3 kidney disease Past Surgical History: Yes Surgical History: Cholecystectomy Past Surgical History Comment: back surgery Family History History of Family Medical Conditions: Yes Family Medical History: Cancer, [place] and Hypertension Social History Does patient currently use any type of tobacco product: No Alcohol Use: None Do you use any recreational Drugs:: No Lives With: Spouse Lives Where: Home Travel Risk Coronavirus risk:travel/contact w/high risk person: No Has patient experienced Coronavirus symptoms: No Infectious screening Have you traveled outside the country in the last 6 months?: No Isolation: Standard ROS Review of Systems Constitutional: No Symptoms Reported Eyes: No Symptoms Reported ENTM: No Symptoms Reported Respiratoy: No Symptoms Reported Cardiovascular: No Symptoms Reported Gastrointestinal/Abdominal: No Symptoms Reported Genitourinary: No Symptoms Reported Neurological: No Symptoms Reported Musculoskeletal: See HPI Integumentary: No Symptoms Reported Hematologic/Lymphatic: No Symptoms Reported All Other Systems: Reviewed and Negative PE Vital Signs Vitals: Vital Signs Temperature 98.3 F Temperature 98.3 F Pulse Rate [Left Radial] 79 Pulse Rate 79 Respiratory Rate 18 Respiratory Rate 24 Respiratory Rate 24 Blood Pressure [Left Arm] 163/70 Blood Pressure 163/70 O2 Sat by Pulse Oximetry 100 O2 Sat by Pulse Oximetry 100 General General Appearance: Alert and In No Apparent Distress Head Head Exam: Normal Inspection, Atraumatic and Normocephalic Eyes Eye exam: PERRL and EOMI ENT ENT Exam: Mucous Membranes Moist Neck Neck Exam: Normal Inspection; negative Tenderness Respiratory Respiratory Exam: Normal Lung Sounds Bilat; negative Accessory Muscle Use or Respiratory Distress Cardiovascular Cardiovascular Exam: Regular Rate, Normal Rhythm and Normal Heart Sounds Abdominal Exam Abdominal Exam: Normal Bowel Sounds and Soft; negative Tenderness Extremities Extremities Exam: Normal Inspection and Full ROM; negative Edema Back Back Exam: Tenderness (coccygeal region, no ecchymosis, no crepitus. ) Neurological Neurological Exam: Alert, Oriented X3 and CN II-XII Intact; negative Motor Sensory Deficit Skin Skin Exam: Warm and Dry COURSE Treatment Treatment: 72 y/o female fell this am, landed on buttocks, no other injuries. Will x-ray the affected area. 1001 - x-rays acceptable. Will d/c to home. 1023 - change of plan - spouse arrived, states she has episodes where she has generalized weakness, he couldn't get her off the floor, she couldn't hold a drink of water, too shaky. PE benign at present. Will check baseline labs. 1148 -CBC shows mild anemia with hemoglobin 9.5. CMP shows chronic renal insufficiency, creatinine 2.43, tends to run around there based on past values. Urinalysis obtained, patient spilled the sample. There is 3+ leukocyte Estrace, not enough to do microanalysis. Urine culture was placed. Will send for CT of the brain. Will attempt In-N-Out cath for another urine specimen. 1418 - cath micro with 20-30 WBCs, + c/w UTI. Given IV Rocephin. Patient is extremely weak with attempting to get up. Will admit for IV antibiotics for her UTI, observation for her generalized weakness. Discussed with Dr. Chisholm, on-call for the hospital, accepts the admission. ROR Labs Reviewed Laboratory Results Reviewed?: Yes 09/13/23 10:36 09/13/23 10:36 Laboratory: WBC 10.1 X10^3/uL (3.6-10.0) H 09/13/23 10:36 RBC 3.27 X10^6/uL (3.5-5.4) L 09/13/23 10:36 Hgb 9.5 g/dL (12.0-16.0) L 09/13/23 10:36 Hct 28.6 % (36.0-47.0) L 09/13/23 10:36 MCV 87.3 fL (80.0-100.0) 09/13/23 10:36 MCH 29.1 pg (27.0-34.0) 09/13/23 10:36 MCHC 33.3 g/dL (33.0-35.0) 09/13/23 10:36 RDW 13.8 % (11.6-16.5) 09/13/23 10:36 Plt Count 132 X10^3/uL (150.0-450.0) L 09/13/23 10:36 MPV 10.4 fL (7.4-11.0) 09/13/23 10:36 Neut % (Auto) 82.3 % (42.0-75.0) H 09/13/23 10:36 Lymph % (Auto) 8.0 % (21.0-51.0) L 09/13/23 10:36 [place] % (Auto) 7.4 % (0.0-13.0) 09/13/23 10:36 Eos % (Auto) 1.4 % (0.9-2.9) 09/13/23 10:36 Baso % (Auto) 0.9 % (0.2-1.0) 09/13/23 10:36 Neut # (Auto) 8.3 x10^3/uL (2.2-4.8) H 09/13/23 10:36 Lymph # (Auto) 0.8 X10^3/uL (1.3-2.9) L 09/13/23 10:36 [place] # (Auto) 0.7 x10^3/uL (0.3-0.8) 09/13/23 10:36 Eos # (Auto) 0.1 x10^3/uL (0.0-0.2) 09/13/23 10:36 Baso # (Auto) 0.1 X10^3/uL (0.0-0.1) 09/13/23 10:36 Absolute Nucleated RBC 0.0 /100WBC 09/13/23 10:36 Sodium 140 mmol/L (136-145) 09/13/23 10:36 Corrected Sodium 140 mmol/L (136-145) 09/13/23 10:36 Potassium 3.9 mmol/L (3.5-5.1) 09/13/23 10:36 Chloride 104 mmol/L (98-107) 09/13/23 10:36 Carbon Dioxide 30.5 mmol/L (21-32) 09/13/23 10:36 BUN 51 mg/dL (7-18) H 09/13/23 10:36 Creatinine 2.43 mg/dL (0.55-1.02) H 09/13/23 10:36 Est GFR (MDRD) Af Amer 25 (>60) L 09/13/23 10:36 Est GFR (MDRD) Non-Af 21 (>60) L 09/13/23 10:36 Glucose 116 mg/dL (65-99) H 09/13/23 10:36 Calcium 8.8 mg/dL (8.5-10.1) 09/13/23 10:36 Corrected Calcium 9.6 mg/dL (8.5-10.1) 09/13/23 10:36 Total Bilirubin 0.60 mg/dL (0.2-1.0) 09/13/23 10:36 AST 16 Units/L (15-37) 09/13/23 10:36 ALT 19 Units/L (12-78) 09/13/23 10:36 Alkaline Phosphatase 72 Units/L (46-116) 09/13/23 10:36 Total Protein 6.4 g/dL (6.4-8.2) 09/13/23 10:36 Albumin 3.0 g/dL (3.4-5.0) L 09/13/23 10:36 Globulin 3.4 g/dL (2.5-4.5) 09/13/23 10:36 Albumin/Globulin Ratio 0.9 Ratio (1.1-2.1) L 09/13/23 10:36 Lipase 43 Units/L (16-77) 09/13/23 10:36 TSH 3rd Generation 0.785 uIU/mL (0.358-3.74) 09/13/23 10:36 Specimen Type Catherized urine 09/13/23 12:54 Urine Color Yellow (YELLOW) 09/13/23 12:54 Urine Appearance Cloudy (CLEAR) 09/13/23 12:54 Urine pH 6.0 (5.0 - 8.0) 09/13/23 12:54 Ur Specific [place] 1.020 (1.000-1.030) 09/13/23 12:54 Urine Protein 2+ (NEGATIVE) 09/13/23 12:54 Urine Glucose (UA) Negative (NEGATIVE) 09/13/23 12:54 Urine Ketones Negative (NEGATIVE) 09/13/23 12:54 Urine Blood 1+ (NEGATIVE) 09/13/23 12:54 Urine Nitrite Negative (NEGATIVE) 09/13/23 12:54 Urine Bilirubin Negative (NEGATIVE) 09/13/23 12:54 Urine Urobilinogen Normal (NORMAL) 09/13/23 12:54 Ur Leukocyte Esterase 2+ (NEGATIVE) 09/13/23 12:54 Urine RBC 3-5 /HPF (0-3) A 09/13/23 12:54 Urine WBC 20-30 /HPF (0-5) A 09/13/23 12:54 Ur Squamous Epith Cells Negative /HPF (NEGATIVE) 09/13/23 12:54 Urine Bacteria 4+ /HPF (NEGATIVE) 09/13/23 12:54 Ur Culture Indicated? Yes/culture set up 09/13/23 12:54 + UTI XRAY XRAY Interpreted by: Both X-ray Results: CT brain - without acute abnormalities. Opioid Opioid Risk Tool Age ([place]ick box if 16-45): No History of Preadolescent Sexual Abuse: No Total: 0 Total Score Risk Category: Low Risk Copyright: Jarod RAHMAN predicting aberrant behaviors Discharge Plan Diagnosis Discharge Problem: Contusion of coccyx, Generalized weakness, UTI (urinary tract infection) Discharge Plan Patient Disposition: 09 ADMITTED INPATIENT Condition: Stable Prescriptions: No Action tizanidine 4 mg tablet 6 mg PO QHS PRN potassium chloride 10 mEq tablet extended release 10 meq PO BID PRN Patient Comments: TAKE 1 TABLET BY MOUTH TWICE DAILY DIRECTED levothyroxine 75 mcg tablet 75 mcg PO QAM alprazolam 0.25 mg tablet 0.125 - 0.25 mg PO BID PRN Patient Comments: TAKE 1/2 TO 1 TABLET BY MOUTH TWICE DAILY NEEDED hydrocodone-acetaminophen 7.5-325 mg tablet 1 tab PO BID PRN Patient Comments: TAKE 1 TABLET BY MOUTH TWICE DAILY NEEDED duloxetine 60 mg capsule,delayed release(DR/EC) 60 mg PO QAM pregabalin 150 mg capsule 150 mg PO TID PRN Patient Comments: TAKE 1 CAPSULE BY MOUTH THREE TIMES DAILY NEEDED torsemide 20 mg tablet 40 mg PO BID Patient Comments: TAKE 2 TABLETS BY MOUTH TWICE DAILY losartan-hydrochlorothiazide 100-25 mg tablet 1 tab PO DAILY Patient Comments: TAKE 1 TABLET BY MOUTH EVERY DAY fluticasone propionate 50 mcg/actuation spray,suspension 1 spray INTRANASAL BID PRN Health Concerns: Post Hospitalization: new medications and changes needed to prevent readmission or further decline. Pt educated and given instructions on all concerns. Orders to Discharge Patient Discharge Orders: Discharge (Routine); Ordered 09/13/23 Ordered By: Medardo Ko Transfer (Routine); Ordered 09/13/23 Ordered By: Medardo Ko Follow ups/Referrals Follow ups/Referrals: IRMA SALDANA [Primary Care Provider] - 3 days
[2023-09-13] MEDS ORDERED: TORADOL 30 MG VIAL ONE (10:08)
[2023-09-13] MEDS ORDERED: TORADOL 30 MG VIAL IVP ONE (10:08)
--- NOTE | 2023-09-13 10:28 | RAD ---
EXAM: AP pelvis HISTORY: Fall COMPARISON: None FINDINGS: Bones are osteopenic. Pelvic bones and SI joints and visualized portion of the sacrum appear intac t. Lower sacrum is obscured by gas and stool. The hip joints bilaterally appear intact. No joint e rosions are identified. Proximal femurs appear intact bilaterally. However, if the patient continue s to be symptomatic CT or MRI could be obtained in order to detect fractures that are radiographicall y occult due to osteopenia. IMPRESSION: No fractures identified Osteopenia THIS IS AN ELECTRONICALLY VERIFIED FINAL REPORT 09/13/2023 10:25 AM - Electronically signed by Feroz Sorensen MD
--- NOTE | 2023-09-13 10:31 | RAD ---
EXAM: SACRUM & COCCYX HISTORY: S/P,FALL; COMPARISON: None FINDINGS: No acute fracture. The left and right SI joint appear symmetric. No acute soft tissue abnormality. IMPRESSION: No acute sacrococcygeal fracture. THIS IS AN ELECTRONICALLY VERIFIED FINAL REPORT 09/13/2023 10:27 AM - Electronically signed by Feroz Sorensen MD
[2023-09-13 10:43] LABS: BASOPHILS # (AUTO) 0.1 X10^3/uL (0.0-0.1); BASOPHILS % (AUTO) 0.9 % (0.2-1.0); EOSINOPHILS # (AUTO) 0.1 x10^3/uL (0.0-0.2); EOSINOPHILS % (AUTO) 1.4 % (0.9-2.9); HEMATOCRIT 28.6 % (36.0-47.0); HEMOGLOBIN 9.5 g/dL (12.0-16.0); LYMPHOCYTES # (AUTO) 0.8 X10^3/uL (1.3-2.9); MEAN CORPUSCULAR HEMOGLOBIN 29.1 pg (27.0-34.0); MEAN CORPUSCULAR HGB CONC 33.3 g/dL (33.0-35.0); MEAN CORPUSCULAR VOLUME 87.3 fL (80.0-100.0); MEAN PLATELET VOLUME 10.4 fL (7.4-11.0); MONOCYTES # (AUTO) 0.7 x10^3/uL (0.3-0.8); MONOCYTES % (AUTO) 7.4 % (0.0-13.0); NEUTROPHILS # (AUTO) 8.3 x10^3/uL (2.2-4.8); NEUTROPHILS % (AUTO) 82.3 % (42.0-75.0); PLATELET COUNT 132 X10^3/uL (150.0-450.0); RED BLOOD COUNT 3.27 X10^6/uL (3.5-5.4); RED CELL DISTRIBUTION WIDTH 13.8 % (11.6-16.5); WHITE BLOOD COUNT 10.1 X10^3/uL (3.6-10.0)
[2023-09-13 10:56] LABS: BILIRUBIN,URINE NEGATIVE (NEGATIVE); BLOOD/HEMOGLOBIN,URINE 2+ (NEGATIVE); GLUCOSE, URINE NEGATIVE (NEGATIVE); KETONES,URINE NEGATIVE (NEGATIVE); LEUKOCYTE ESTERASE ,URINE 3+ (NEGATIVE); NITRITES,URINE NEGATIVE (NEGATIVE); PROTEIN,URINE 2+ (NEGATIVE); UROBILINOGEN,URINE NORMAL (NORMAL)
[2023-09-13 10:59] LABS: APPEARANCE,URINE SLIGHTLY HAZY (CLEAR); COLOR,URINE YELLOW (YELLOW)
[2023-09-13 11:05] LABS: CALCIUM 8.8 mg/dL (8.5-10.1); CARBON DIOXIDE 30.5 mmol/L (21-32); COR CA(FOR HYPOALB) 9.6 mg/dL (8.5-10.1); CREATININE 2.43 mg/dL (0.55-1.02); POTASSIUM 3.9 mmol/L (3.5-5.1); TOTAL PROTEIN 6.4 g/dL (6.4-8.2); TSH (3RD GENERATION) 0.785 uIU/mL (0.358-3.74)
--- NOTE | 2023-09-13 12:56 | CT ---
EXAM:BRAIN W/O CONHISTORY:GENERALIZED WEAKNESS;COMPARISON:No relevant prior studies were available for comparison at the time of interpretation..TECHNIQUE:CT images were obtained. Multiplanar reconstructions were created on a separate workstation and used during interpretation. All CT scans at this facility is dose modulation, iterative reconstruction, and/or weight-based dosing as appropriate to reduce radiation to levels as low as reasonably achievable (ALARA). Postprocessing details, radiation dose, and contrast dose (if applicable) are recorded in the patient's medical record.FINDINGS:Acute findings: There is no intracranial hemorrhage. No mass effect. No intra-axial or extra-axial fluid collection. There is no mass. No tentorial, uncal, or tonsillar herniation.Brain volume and white matter: There is diffuse cortical atrophy. There is hypoattenuation in the supratentorial white matter consistent with chronic microvascular ischemic disease.Ventricles: No hydrocephalusMidline structures: Pituitary gland and corpus callosum are normal.Posterior fossa and skull base: Cerebellum and posterior fossa are within normal limits. Basal cisterns are not effaced.Sinuses and mastoids: Paranasal sinuses and mastoid air cells are predominantly clear.Globes and Orbits: Bilateral lens implants. Globes are intact. Bony orbits are intact. Extraocular muscles and retrobulbar fat appear normal.Skull and soft tissues: No depressed skull fracture. Calvarium appears intact. No scalp injury is identified.IMPRESSION:1. No acute intracranial abnormalityTHIS IS AN ELECTRONICALLY VERIFIED FINAL REPORT09/13/2023 12:52 PM - Electronically signed by Thierno Khan MD
[2023-09-13 13:28] LABS: BILIRUBIN,URINE NEGATIVE (NEGATIVE); BLOOD/HEMOGLOBIN,URINE 1+ (NEGATIVE); GLUCOSE, URINE NEGATIVE (NEGATIVE); KETONES,URINE NEGATIVE (NEGATIVE); LEUKOCYTE ESTERASE ,URINE 2+ (NEGATIVE); NITRITES,URINE NEGATIVE (NEGATIVE); PROTEIN,URINE 2+ (NEGATIVE); UROBILINOGEN,URINE NORMAL (NORMAL)
[2023-09-13] MEDS ORDERED: ROCEPHIN VIAL 1 GRAM IVP ONE (13:55)
[2023-09-13 13:57] LABS: APPEARANCE,URINE CLOUDY (CLEAR); COLOR,URINE YELLOW (YELLOW)
[2023-09-13 14:00] LABS: BACTERIA,URINE 4+ /HPF (NEGATIVE); SQUAMOUS EPITHELIAL CELL,UR NEGATIVE /HPF (NEGATIVE)
[2023-09-13] MEDS ORDERED: ROCEPHIN VIAL 1 GRAM ONE (14:12)
[2023-09-13] MEDS ORDERED: CONSULT PHARMACY - POTASSIUM & MAGNESIUM XX SCH (15:40)
[2023-09-13] MEDS: D5 1/2 NS 1,000 ML 1,000 ML IV SCH (16:16)
[2023-09-13] MEDS: ROCEPHIN VIAL 1 GRAM 1 G in NS 100 ML IV 100 ML IV SCH (16:16)
[2023-09-14] MEDS: D5 1/2 NS 1,000 ML 1,000 ML IV SCH ×3 (05:25→19:22)
[2023-09-14 06:31] LABS: BASOPHILS # (AUTO) 0.1 X10^3/uL (0.0-0.1); BASOPHILS % (AUTO) 0.7 % (0.2-1.0); EOSINOPHILS # (AUTO) 0.1 x10^3/uL (0.0-0.2); EOSINOPHILS % (AUTO) 0.6 % (0.9-2.9); HEMATOCRIT 26.2 % (36.0-47.0); HEMOGLOBIN 8.6 g/dL (12.0-16.0); LYMPHOCYTES # (AUTO) 1.5 X10^3/uL (1.3-2.9); LYMPHOCYTES % (AUTO) 9.7 % (21.0-51.0); MEAN CORPUSCULAR HEMOGLOBIN 28.7 pg (27.0-34.0); MEAN CORPUSCULAR HGB CONC 32.8 g/dL (33.0-35.0); MEAN CORPUSCULAR VOLUME 87.3 fL (80.0-100.0); MEAN PLATELET VOLUME 11.5 fL (7.4-11.0); MONOCYTES # (AUTO) 1.4 x10^3/uL (0.3-0.8); MONOCYTES % (AUTO) 8.9 % (0.0-13.0); NEUTROPHILS # (AUTO) 12.5 x10^3/uL (2.2-4.8); NEUTROPHILS % (AUTO) 80.1 % (42.0-75.0); PLATELET COUNT 124 X10^3/uL (150.0-450.0); RED CELL DISTRIBUTION WIDTH 13.8 % (11.6-16.5); WHITE BLOOD COUNT 15.6 X10^3/uL (3.6-10.0)
[2023-09-14 06:41] LABS: ALANINE AMINOTRANSFERASE 15 Units/L (12-78); ALBUMIN 2.6 g/dL (3.4-5.0); ALKALINE PHOSPHATASE 64 Units/L (46-116); ASPARTATE AMINO TRANSFERASE 18 Units/L (15-37); BLOOD UREA NITROGEN 50 mg/dL (7-18); CALCIUM 8.5 mg/dL (8.5-10.1); CARBON DIOXIDE 26.4 mmol/L (21-32); CHLORIDE 106 mmol/L (98-107); COR CA(FOR HYPOALB) 9.6 mg/dL (8.5-10.1); CREATININE 2.18 mg/dL (0.55-1.02); GLUCOSE 98 mg/dL (65-99); POTASSIUM 3.6 mmol/L (3.5-5.1); SODIUM 140 mmol/L (136-145); TOTAL PROTEIN 5.9 g/dL (6.4-8.2); eGFR NON BLACK RACES 23 (>60)
[2023-09-14] MEDS ORDERED: CONSULT PHARMACY - POTASSIUM & MAGNESIUM XX SCH (08:00)
[2023-09-14] MEDS ORDERED: ALPRAZOLAM ODT PO PRN (08:45)
[2023-09-14] MEDS ORDERED: MICRO K EXTEN CAP 10 MEQ PO SCH (09:00)
[2023-09-14] MEDS: ENTRESTO 49/51 MG TABLET PO SCH ×2 (09:35→20:32)
[2023-09-14] MEDS: ROCEPHIN VIAL 1 GRAM 1 G in NS 100 ML IV 100 ML IV SCH (09:35)
[2023-09-14] MEDS: CYMBALTA PO SCH (09:35)
[2023-09-14] MEDS: SYNTHROID 75 mcg TAB PO SCH (09:35)
[2023-09-14] MEDS ORDERED: RESTORIL CAP 15 MG PO PRN (10:47)
[2023-09-14] MEDS ORDERED: CATAPRES TAB 0.1 MG PO ONE (11:29)
--- NOTE | 2023-09-14 11:58 | EKG ---
Test Reason : bp 188/78 Blood Pressure : */* mmHG Vent. Rate : 73 BPM Atrial Rate : 73 BPM P-R Int : 156 ms QRS Dur : 100 ms QT Int : 416 ms P-R-T Axes : 57 8 33 degrees QTc Int : 458 ms Sinus rhythm with premature atrial complexes Otherwise normal ECG No previous ECGs available Confirmed by Mitchell German MD ([id number] on 09/14/2023 1:52:20 PM Referred By: Confirmed By: Mitchell German MD
[2023-09-15] MEDS: NORCO 5/325 MG TAB PO PRN ×2 (00:41→12:00)
[2023-09-15 06:37] LABS: BASOPHILS # (AUTO) 0.1 X10^3/uL (0.0-0.1); BASOPHILS % (AUTO) 1.4 % (0.2-1.0); EOSINOPHILS # (AUTO) 0.3 x10^3/uL (0.0-0.2); EOSINOPHILS % (AUTO) 4.3 % (0.9-2.9); HEMATOCRIT 27.4 % (36.0-47.0); HEMOGLOBIN 9.3 g/dL (12.0-16.0); LYMPHOCYTES # (AUTO) 1.5 X10^3/uL (1.3-2.9); LYMPHOCYTES % (AUTO) 21.2 % (21.0-51.0); MEAN CORPUSCULAR HEMOGLOBIN 29.3 pg (27.0-34.0); MEAN CORPUSCULAR HGB CONC 33.7 g/dL (33.0-35.0); MEAN PLATELET VOLUME 11.3 fL (7.4-11.0); MONOCYTES # (AUTO) 0.9 x10^3/uL (0.3-0.8); NEUTROPHILS # (AUTO) 4.3 x10^3/uL (2.2-4.8); NEUTROPHILS % (AUTO) 60.1 % (42.0-75.0); PLATELET COUNT 118 X10^3/uL (150.0-450.0); RED BLOOD COUNT 3.15 X10^6/uL (3.5-5.4); RED CELL DISTRIBUTION WIDTH 13.8 % (11.6-16.5); WHITE BLOOD COUNT 7.1 X10^3/uL (3.6-10.0)
[2023-09-15 06:51] LABS: ALANINE AMINOTRANSFERASE 15 Units/L (12-78); ALBUMIN 2.6 g/dL (3.4-5.0); ALKALINE PHOSPHATASE 64 Units/L (46-116); ASPARTATE AMINO TRANSFERASE 14 Units/L (15-37); BLOOD UREA NITROGEN 41 mg/dL (7-18); CALCIUM 8.5 mg/dL (8.5-10.1); CARBON DIOXIDE 25.8 mmol/L (21-32); CHLORIDE 107 mmol/L (98-107); COR CA(FOR HYPOALB) 9.6 mg/dL (8.5-10.1); CREATININE 1.73 mg/dL (0.55-1.02); GLUCOSE 95 mg/dL (65-99); POTASSIUM 3.8 mmol/L (3.5-5.1); SODIUM 142 mmol/L (136-145); TOTAL PROTEIN 6.1 g/dL (6.4-8.2); eGFR NON BLACK RACES 31 (>60)
[2023-09-15] MEDS: D5 1/2 NS 1,000 ML 1,000 ML IV SCH ×2 (07:33→21:30)
[2023-09-15] MEDS: ROCEPHIN VIAL 1 GRAM 1 G in NS 100 ML IV 100 ML IV SCH (08:34)
[2023-09-15] MEDS ORDERED: SOLU-Medrol 125 MG VIAL IVP ONE (08:34)
[2023-09-15] MEDS: ENTRESTO 49/51 MG TABLET PO SCH ×2 (08:42→21:04)
[2023-09-15] MEDS: CYMBALTA PO SCH (08:42)
[2023-09-15] MEDS: TUMS PO SCH ×3 (08:43→21:05)
[2023-09-15] MEDS: SYNTHROID 75 mcg TAB PO SCH (08:43)
--- NOTE | 2023-09-15 08:58 | RAD ---
EXAM: CHEST, 1 VIEW HISTORY: hx chf; COMPARISON: CXR 02/21/2022. TECHNIQUE: AP/PA view of the chest FINDINGS: Cardiac silhouette is enlarged for PA view and normal for an AP view. It is unclear what view was pe rformed. No consolidation or segmental lung collapse. No definite pleural effusion or pneumothorax. Spine neurostimulator leads noted. IMPRESSION: Possible cardiomegaly. Please see discussion above. No acute pulmonary process. THIS IS AN ELECTRONICALLY VERIFIED FINAL REPORT 09/15/2023 8:55 AM - Electronically signed by Reza Dsouza MD
[2023-09-15] MEDS ORDERED: LASIX IVP SCH (09:00)
[2023-09-15] MEDS: CATAPRES TAB 0.1 MG PO SCH ×2 (10:00→21:05)
[2023-09-15] MEDS ORDERED: IMODIUM CAP 2 MG PO PRN (10:41)
[2023-09-15] MEDS ORDERED: NORVASC TAB 5 MG PO ONE ×2 (12:58→15:20)
[2023-09-15] MEDS ORDERED: NORCO 5/325 MG TAB PO ONE (12:59)
[2023-09-15] MEDS ORDERED: APRESOLINE INJ 20 MG VIAL IVP ONE (17:25)
[2023-09-15] MEDS ORDERED: ZANAFLEX PO PRN (17:49)
[2023-09-15] MEDS: LYRICA CAP 75 mg PO SCH (21:06)
[2023-09-16] MEDS: LYRICA CAP 75 mg PO SCH (05:35)
[2023-09-16] MEDS: TUMS PO SCH ×2 (05:35→05:41)
[2023-09-16] MEDS: NORCO 5/325 MG TAB PO PRN (06:02)
[2023-09-16 06:11] LABS: BASOPHILS % (AUTO) 0.5 % (0.2-1.0); HEMATOCRIT 30.4 % (36.0-47.0); HEMOGLOBIN 10.2 g/dL (12.0-16.0); LYMPHOCYTES # (AUTO) 0.9 X10^3/uL (1.3-2.9); LYMPHOCYTES % (AUTO) 11.6 % (21.0-51.0); MEAN CORPUSCULAR HEMOGLOBIN 28.9 pg (27.0-34.0); MEAN CORPUSCULAR HGB CONC 33.6 g/dL (33.0-35.0); MEAN CORPUSCULAR VOLUME 86.2 fL (80.0-100.0); MONOCYTES # (AUTO) 0.4 x10^3/uL (0.3-0.8); MONOCYTES % (AUTO) 5.2 % (0.0-13.0); NEUTROPHILS # (AUTO) 6.6 x10^3/uL (2.2-4.8); NEUTROPHILS % (AUTO) 82.7 % (42.0-75.0); PLATELET COUNT 170 X10^3/uL (150.0-450.0); RED BLOOD COUNT 3.53 X10^6/uL (3.5-5.4); RED CELL DISTRIBUTION WIDTH 13.8 % (11.6-16.5)
[2023-09-16 06:28] LABS: CALCIUM 9.9 mg/dL (8.5-10.1); CARBON DIOXIDE 23.9 mmol/L (21-32); COR CA(FOR HYPOALB) 10.7 mg/dL (8.5-10.1); CREATININE 1.82 mg/dL (0.55-1.02); TOTAL PROTEIN 6.9 g/dL (6.4-8.2)
[2023-09-16 08:06] VITALS: BP 162/70; PULSE 76; RESP 20; TEMP 97.9; O2SAT 99
[2023-09-16] MEDS: ENTRESTO 49/51 MG TABLET PO SCH (08:30)
[2023-09-16] MEDS: CATAPRES TAB 0.1 MG PO SCH (08:30)
[2023-09-16] MEDS: CYMBALTA PO SCH (08:30)
[2023-09-16] MEDS: SYNTHROID 75 mcg TAB PO SCH (08:31)
[2023-09-16] MEDS: ROCEPHIN VIAL 1 GRAM 1 G in NS 100 ML IV 100 ML IV SCH (08:31)
[2023-09-16] MEDS: D5 1/2 NS 1,000 ML 1,000 ML IV SCH (09:13)
[2023-09-16] MEDS ORDERED: LYRICA CAP 75 mg PO SCH (21:00)
== END 2023-09-16 10:41 | disposition home health service (06) ==
LOC: MED/SURG 08:37 → ER 08:37 → MED/SURG 15:25
PROVIDERS: ADMIT Internal Medicine; ATTEND Internal Medicine
DX: B96.29 Other Escherichia coli [E. coli] as the cause of diseases classified elsewhere; W18.39XA Other fall on same level, initial encounter; N39.0 Urinary tract infection, site not specified; R53.1 Weakness; I13.0 Hypertensive heart and chronic kidney disease with heart failure and stage 1 through stage 4 chronic kidney disease, or unspecified chronic kidney disease; M51.06 Intervertebral disc disorders with myelopathy, lumbar region; R55 Syncope and collapse; I50.9 Heart failure, unspecified; Y92.003 Bedroom of unspecified non-institutional (private) residence as the place of occurrence of the external cause; N17.8 Other acute kidney failure; N18.30 Chronic kidney disease, stage 3 unspecified; M53.3 Sacrococcygeal disorders, not elsewhere classified

== ENCOUNTER 2023-11-09 07:17 | Inpatient (IN) ==
--- NOTE | 2023-11-09 08:07 | DR.EXTPAIN ---
HPI Time seen Time Seen by Provider: 11/09/23 08:06 PCP Primary Care Physician: Maria Saldana Complaint/Symptoms Chief Complaint Doctor Comments: 72 y/o female in via EMS for evaluation. Patient awoke this a.m., had severe low back pain try to get out of bed. Denies any recent trauma to her low back. Patient relatively pain-free with laying still. Pain is severe when she attempts to move. No numbness of the lower extremities, no incontinence of bowel or bladder. Patient with a history of chronic back issues, has a stimulator in place. Patient is on chronic narcotic therapy for her pain, did not take this a.m.. Per spouse patient with a history of sudden episodes of generalized weakness and frequent falls. Hit her face on the sink with an episode last week. Denies headache, visual changes, URI symptoms, bowel or bladder issues. Patient was seen and admitted here last month for severe weakness, UTI. Denies any current urinary issues, no fever or chills. Spouse believes she is too weak to care for herself at home, requests admission. Chief Complaint:: Patient states she was attempting to get out of bed and began to have severe lower back pain. She denies falls, but has a history of frequent falls. Noted old contusion to left eye and face. Patient reports she has a TENDS unit in place. COVID-19 Coronavirus risk:travel/contact w/high risk person: No Has patient experienced Coronavirus symptoms: No Nurses notes reviewed Nurses Notes Review: Yes Source History Provided: Patient and EMS Mode of arrival Mode of Arrival: Stretcher Timing Onset of Chief Complaint: 11/09/23 PMH PMH Past Medical History: Yes Past Medical History: Hypertension Past Medical History Comment: chronic back pain Past Surgical History: Yes Surgical History: Appendectomy, Cholecystectomy, Hysterectomy, Joint Replacement and Ortho Surgery Family History History of Family Medical Conditions: Yes Family Medical History: Cancer, [place] and Hypertension Social History Does patient currently use any type of tobacco product: No Have you used tobacco products in the last 12 months: No Type of Tobacco Use: None Does any household member use tobacco: No Alcohol Use: None Do you use any recreational Drugs:: No Lives With: Spouse Lives Where: Home Travel Risk Coronavirus risk:travel/contact w/high risk person: No Has patient experienced Coronavirus symptoms: No Infectious screening In the last 2 months have you had wt loss of >10#?: NO Have you had fever, night sweats or hemotysis?: No Have you traveled outside the country in the last 6 months?: No Isolation: Standard ROS Review of Systems Constitutional: Malaise and Weakness Eyes: No Symptoms Reported ENTM: No Symptoms Reported Respiratoy: No Symptoms Reported Cardiovascular: No Symptoms Reported Gastrointestinal/Abdominal: No Symptoms Reported Genitourinary: No Symptoms Reported Neurological: Weakness Musculoskeletal: Back Pain Integumentary: No Symptoms Reported Hematologic/Lymphatic: No Symptoms Reported Psychiatric: No Symptoms Reported All Other Systems: Reviewed and Negative PE Vital Signs Vitals: Vital Signs Temperature 98.3 F Pulse Rate 70 Pulse Rate 74 Pulse Rate 78 Pulse Rate 79 Pulse Rate 89 Respiratory Rate 16 Respiratory Rate 16 Blood Pressure 174/70 O2 Sat by Pulse Oximetry 98 O2 Sat by Pulse Oximetry 96 General General Appearance: Alert and In No Apparent Distress Head Head Exam: Normal Inspection, Atraumatic, Normocephalic and Other (+ fading ecchymosis of left cheek) Eyes Eye exam: PERRL and EOMI ENT ENT Exam: Normal Oropharynx and Mucous Membranes Moist Neck Neck Exam: Normal Inspection and Full ROM; negative Tenderness Chest Chest Inspection: Normal Inspection Respiratory Respiratory Exam: Normal Lung Sounds Bilat; negative Accessory Muscle Use or Respiratory Distress Cardiovascular Cardiovascular Exam: Regular Rate, Normal Rhythm and Normal Heart Sounds Abdominal Exam Abdominal Exam: Normal Bowel Sounds and Soft; negative Tenderness Extremities Extremities Exam: Normal Inspection; negative Tenderness Back Back Exam: Other (Low back pain with rolling the patient over, no midline tenderness, no rash or wounds of the back) Neurological Neurological Exam: Alert, Oriented X3 and CN II-XII Intact; negative Motor Sensory Deficit Skin Skin Exam: Warm and Dry COURSE Treatment Treatment: 72-year-old female with severe low back pain returning out of bed this a.m., history of episodes of severe weakness and frequent falls. Denies any falls past 2 days. Low back with movement, no point tenderness. She is neurologically intact. Workup initiated. Patient given lactated Ringer's, morphine 4 mg/Zofran 4 mg IV. 1001 -labs show worsening renal function, consistent with acute on chronic kidney injury, probable degree of dehydration. No signs of urinary tract infection this time around. WBC elevated 14,000, no obvious signs of infection. Labs otherwise acceptable. CT of the head without acute abnormalities, chest x-ray acceptable as well. Recommend admission for h ydration, further evaluation of her generalized weakness. Dr. Bauer on-call, accepts admission, saw the patient in ER. ROR Labs Reviewed Laboratory Results Reviewed?: Yes 11/09/23 08:08 11/09/23 08:08 Laboratory: WBC 14.4 X10^3/uL (3.6-10.0) H 11/09/23 08:08 RBC 3.53 X10^6/uL (3.5-5.4) 11/09/23 08:08 Hgb 10.0 g/dL (12.0-16.0) L 11/09/23 08:08 Hct 29.6 % (36.0-47.0) L 11/09/23 08:08 MCV 84.1 fL (80.0-100.0) 11/09/23 08:08 MCH 28.3 pg (27.0-34.0) 11/09/23 08:08 MCHC 33.7 g/dL (33.0-35.0) 11/09/23 08:08 RDW 14.4 % (11.6-16.5) 11/09/23 08:08 Plt Count 160 X10^3/uL (150.0-450.0) 11/09/23 08:08 MPV 11.0 fL (7.4-11.0) 11/09/23 08:08 Neut % (Auto) 82.9 % (42.0-75.0) H 11/09/23 08:08 Lymph % (Auto) 7.2 % (21.0-51.0) L 11/09/23 08:08 [place] % (Auto) 7.3 % (0.0-13.0) 11/09/23 08:08 Eos % (Auto) 1.7 % (0.9-2.9) 11/09/23 08:08 Baso % (Auto) 0.9 % (0.2-1.0) 11/09/23 08:08 Neut # (Auto) 11.9 x10^3/uL (2.2-4.8) H 11/09/23 08:08 Lymph # (Auto) 1.0 X10^3/uL (1.3-2.9) L 11/09/23 08:08 [place] # (Auto) 1.1 x10^3/uL (0.3-0.8) H 11/09/23 08:08 Eos # (Auto) 0.2 x10^3/uL (0.0-0.2) 11/09/23 08:08 Baso # (Auto) 0.1 X10^3/uL (0.0-0.1) 11/09/23 08:08 Absolute Nucleated RBC 0.1 /100WBC 11/09/23 08:08 Sodium 140 mmol/L (136-145) 11/09/23 08:08 Corrected Sodium 141 mmol/L (136-145) 11/09/23 08:08 Potassium 4.0 mmol/L (3.5-5.1) 11/09/23 08:08 Chloride 101 mmol/L (98-107) 11/09/23 08:08 Carbon Dioxide 31.0 mmol/L (21-32) 11/09/23 08:08 BUN 70 mg/dL (7-18) H 11/09/23 08:08 Creatinine 3.15 mg/dL (0.55-1.02) H 11/09/23 08:08 Est GFR (MDRD) Af Amer 19 (>60) L 11/09/23 08:08 Est GFR (MDRD) Non-Af 15 (>60) L 11/09/23 08:08 Glucose 140 mg/dL (65-99) H 11/09/23 08:08 Calcium 9.6 mg/dL (8.5-10.1) 11/09/23 08:08 Corrected Calcium 10.3 mg/dL (8.5-10.1) H 11/09/23 08:08 Magnesium 2.2 mg/dL (2.0-2.9) 11/09/23 08:08 Total Bilirubin 0.80 mg/dL (0.2-1.0) 11/09/23 08:08 AST 14 Units/L (15-37) L 11/09/23 08:08 ALT 12 Units/L (12-78) 11/09/23 08:08 Alkaline Phosphatase 66 Units/L (46-116) 11/09/23 08:08 Total Protein 7.0 g/dL (6.4-8.2) 11/09/23 08:08 Albumin 3.1 g/dL (3.4-5.0) L 11/09/23 08:08 Globulin 3.9 g/dL (2.5-4.5) 11/09/23 08:08 Albumin/Globulin Ratio 0.8 Ratio (1.1-2.1) L 11/09/23 08:08 TSH 3rd Generation 0.473 uIU/mL (0.358-3.74) 11/09/23 08:08 Specimen Type Catherized urine 11/09/23 08:35 Urine Color Yellow (YELLOW) 11/09/23 08:35 Urine Appearance Clear (CLEAR) 11/09/23 08:35 Urine pH 6.5 (5.0 - 8.0) 11/09/23 08:35 Ur Specific [place] 1.010 (1.000-1.030) 11/09/23 08:35 Urine Protein 2+ (NEGATIVE) 11/09/23 08:35 Urine Glucose (UA) Negative (NEGATIVE) 11/09/23 08:35 Urine Ketones Negative (NEGATIVE) 11/09/23 08:35 Urine Blood Negative (NEGATIVE) 11/09/23 08:35 Urine Nitrite Negative (NEGATIVE) 11/09/23 08:35 Urine Bilirubin Negative (NEGATIVE) 11/09/23 08:35 Urine Urobilinogen Normal (NORMAL) 11/09/23 08:35 Ur Leukocyte Esterase Negative (NEGATIVE) 11/09/23 08:35 Urine RBC None seen /HPF (0-3) 11/09/23 08:35 Urine WBC None seen /HPF (0-5) 11/09/23 08:35 Ur Squamous Epith Cells Few /HPF (NEGATIVE) 11/09/23 08:35 Amorphous Sediment Trace /HPF (NEGATIVE) 11/09/23 08:35 Urine Bacteria Negative /HPF (NEGATIVE) 11/09/23 08:35 Ur Culture Indicated? No/not indicated 11/09/23 08:35 XRAY XRAY Interpreted by: Both X-ray Results: EXAM: CT head without contrast HISTORY: Fall, head injury COMPARISON: 09/13/2023 TECHNIQUE: Axial noncontrast images with coronal and sagittal reformats. Dose reduction procedures were used with mA/kv adjusted for body size. FINDINGS: Ventricles are normal in size shape and position. There is slight decreased attenuation in the periventricular white matter suggestive of small-vessel vascular disease. There are no focal areas of abnormal attenuation to suggest recent or remote CVA, hemorrhage, contusion, mass lesion, or extra-axial fluid collection. The visualized sinuses are clear. The calvarium is intact. IMPRESSION: No acute intracranial abnormality identified Small-vessel disease THIS IS AN ELECTRONICALLY VERIFIED FINAL REPORT 11/09/2023 9:08 AM - Electronically signed by Feroz Sorensen MD EXAM: CHEST, 1 VIEW HISTORY: weakness; HYSTER.BLADDER, GB, APPY, FIBROM, NEUROPARTHY, ARTHRITIS, HTN, DCS COMPARISON: No relevant prior studies were available for comparison at the time of interpretation. TECHNIQUE: CHEST, 1 VIEW FINDINGS: Chest: Lines and tubes: None Mediastinum: Cardiac and mediastinal shadow is within normal limits for size and contour. Pulmonary vessels: No pulmonary vascular congestion. Lung robertson: No suspicious airspace opacity. Pleura: No effusion. No pneumothorax. Bones and soft tissues: No acute osseous or soft tissue abnormality. Thoracic spinal cord stimulator is noted. IMPRESSION: 1. No acute cardiopulmonary abnormality THIS IS AN ELECTRONICALLY VERIFIED FINAL REPORT 11/09/2023 9:14 AM - Electronically signed by Thierno Khan MD EXAM: LUMBAR SPINE W/O CON HISTORY: Low back pain, trauma TECHNIQUE: Axial noncontrast images with coronal and sagittal reformats. Dose reduction procedures were used with mA/kv adjusted for body size. COMPARISON: None FINDINGS: Mild lumbar levo rotoscoliosis is present. The alignment is otherwise normal with the exception of minimal anterolisthesis L4 on L5. Bones are osteopenic. There is a spinal cord stimulator catheter within the epidural space. Pedicles, transverse processes, and posterior elements appear intact as do the visualized portions of the SI joints and sacrum. Disc levels are evaluated as follows: T12-L1 level, L1-2 level: No evidence for compressive disc disease. No compressive spondylitic change identified. Neural foramina are patent. Joints are normal. L2-3 level: Broad-based disc bulging effaces the thecal sac and contributes to lateral recess narrowing bilaterally. The neural foramina are patent. The joints are normal. L3-4 level: Mild broad-based disc bulging effaces the thecal sac and contributes to moderate lateral recess narrowing bilaterally right worse than left. Neural foramina are patent. Bilateral facet arthropathy is present. L4-5 level: There is mild anterolisthesis L4 on L5. There is broad-based disc protrusion which effaces the thecal sac and contributes along with bilateral facet arthropathy to a moderate canal stenosis with lateral recess and foraminal narrowing bilaterally right worse than left. L5-S1 level: Broad-based disc bulging does not displace the S1 nerve roots or contributes to thecal sac effacement however it does contribute along with bilateral facet arthropathy to lateral recess narrowing bilaterally. The neural foramina are patent. IMPRESSION: No acute traumatic abnormality identified Evaluation of each disc level given in detail above THIS IS AN ELECTRONICALLY VERIFIED FINAL REPORT 11/09/2023 9:16 AM - Electronically signed by Feroz Sorensen MD Opioid Opioid Risk Tool Age (Broderick box if 16-45): No History of Preadolescent Sexual Abuse: No Total: 0 Total Score Risk Category: Low Risk Copyright: Jarod RAHMAN predicting aberrant behaviors Discharge Plan Diagnosis Discharge Problem: [id number] kidney injury, Generalized weakness Discharge Plan Patient Disposition: ADMITTED INPATIENT Condition: Stable Orders to Discharge Patient Discharge Orders: Transfer (Routine); Ordered 11/09/23 Ordered By: Medardo Ko
[2023-11-09 08:29] LABS: EOSINOPHILS # (AUTO) 0.2 x10^3/uL (0.0-0.2); NEUTROPHILS # (AUTO) 11.9 x10^3/uL (2.2-4.8)
[2023-11-09] MEDS ORDERED: LR 1,000 ML IV 1,000 ML IV ONE (08:29)
[2023-11-09] MEDS ORDERED: ZOFRAN INJ 4 MG VIAL ONE (08:29)
[2023-11-09] MEDS ORDERED: MORPHINE SULFATE INJ 4 MG ONE (08:29)
[2023-11-09 08:36] LABS: BASOPHILS # (AUTO) 0.1 X10^3/uL (0.0-0.1); BASOPHILS % (AUTO) 0.9 % (0.2-1.0); EOSINOPHILS % (AUTO) 1.7 % (0.9-2.9); HEMATOCRIT 29.6 % (36.0-47.0); LYMPHOCYTES % (AUTO) 7.2 % (21.0-51.0); MEAN CORPUSCULAR HEMOGLOBIN 28.3 pg (27.0-34.0); MEAN CORPUSCULAR HGB CONC 33.7 g/dL (33.0-35.0); MEAN CORPUSCULAR VOLUME 84.1 fL (80.0-100.0); MONOCYTES # (AUTO) 1.1 x10^3/uL (0.3-0.8); MONOCYTES % (AUTO) 7.3 % (0.0-13.0); NEUTROPHILS % (AUTO) 82.9 % (42.0-75.0); PLATELET COUNT 160 X10^3/uL (150.0-450.0); RED BLOOD COUNT 3.53 X10^6/uL (3.5-5.4); RED CELL DISTRIBUTION WIDTH 14.4 % (11.6-16.5); WHITE BLOOD COUNT 14.4 X10^3/uL (3.6-10.0)
[2023-11-09] MEDS: MORPHINE SULFATE INJ 4 MG IVP ONE (08:38)
[2023-11-09] MEDS: ZOFRAN INJ 4 MG VIAL IVP ONE (08:39)
[2023-11-09] MEDS: LR 1,000 ML IV 1,000 ML IV SCH ×2 (08:39→12:23)
[2023-11-09 08:43] LABS: ALBUMIN 3.1 g/dL (3.4-5.0); CALCIUM 9.6 mg/dL (8.5-10.1); COR CA(FOR HYPOALB) 10.3 mg/dL (8.5-10.1); CREATININE 3.15 mg/dL (0.55-1.02); TSH (3RD GENERATION) 0.473 uIU/mL (0.358-3.74)
[2023-11-09 08:49] LABS: BILIRUBIN,URINE NEGATIVE (NEGATIVE); BLOOD/HEMOGLOBIN,URINE NEGATIVE (NEGATIVE); GLUCOSE, URINE NEGATIVE (NEGATIVE); KETONES,URINE NEGATIVE (NEGATIVE); LEUKOCYTE ESTERASE ,URINE NEGATIVE (NEGATIVE); NITRITES,URINE NEGATIVE (NEGATIVE); PH,URINE 6.5 (5.0 - 8.0); PROTEIN,URINE 2+ (NEGATIVE); UROBILINOGEN,URINE NORMAL (NORMAL)
[2023-11-09 09:10] LABS: APPEARANCE,URINE CLEAR (CLEAR); COLOR,URINE YELLOW (YELLOW); RBC,URINE NONE SEEN /HPF (0-3)
[2023-11-09 09:11] LABS: BACTERIA,URINE NEGATIVE /HPF (NEGATIVE); SQUAMOUS EPITHELIAL CELL,UR FEW /HPF (NEGATIVE)
--- NOTE | 2023-11-09 09:11 | CT ---
EXAM:CT head without contrastHISTORY:Fall, head injuryCOMPARISON:09/13/2023TECHNIQUE:Axi al noncontrast images with coronal and sagittal reformats. Dose reduction procedures were used with mA/kv adjusted for body size.FINDINGS:Ventricles are normal in size shape and position. There is slight decreased attenuation in the periventricular white matter suggestive of small-vessel vascular disease. There are no focal areas of abnormal attenuation to suggest recent or remote CVA, hemorrhage, contusion, mass lesion, or extra-axial fluid collection. The visualized sinuses are clear. The calvarium is intact.IMPRESSION:No acute intracranial abnormality identifiedSmall-vessel diseaseTHIS IS AN ELECTRONICALLY VERIFIED FINAL REPORT11/09/2023 9:08 AM - Electronically signed by Feroz Sorensen MD
--- NOTE | 2023-11-09 09:18 | RAD ---
EXAM:CHEST, 1 VIEWHISTORY:weakness; HYSTER.BLADDER, GB, APPY, FIBROM, NEUROPARTHY, ARTHRITIS, HTN, DCSCOMPARISON:No relevant prior studies were available for comparison at the time of interpretation.TECHNIQUE:CHEST, 1 VIEWFINDINGS:Chest:Lines and tubes: NoneMediastinum: Cardiac and mediastinal shadow is within normal limits for size and contour.Pulmonary vessels: No pulmonary vascular congestion.Lung robertson: No suspicious airspace opacity.Pleura: No effusion. No pneumothorax.Bones and soft tissues: No acute osseous or soft tissue abnormality. Thoracic spinal cord stimulator is noted.IMPRESSION:1. No acute cardiopulmonary abnormalityTHIS IS AN ELECTRONICALLY VERIFIED FINAL REPORT11/09/2023 9:14 AM - Electronically signed by Thierno Khan MD
--- NOTE | 2023-11-09 09:20 | CT ---
EXAM:LUMBAR SPINE W/O CONHISTORY:Low back pain, traumaTECHNIQUE:Axial noncontrast images with coronal and sagittal reformats. Dose reduction procedures were used with mA/kv adjusted for body size.COMPARISON:NoneFINDINGS:Mild lumbar levo rotoscoliosis is present. The alignment is otherwise normal with the exception of minimal anterolisthesis L4 on L5. Bones are osteopenic. There is a spinal cord stimulator catheter within the epidural space. Pedicles, transverse processes, and posterior elements appear intact as do the visualized portions of the SI joints and sacrum. Disc levels are evaluated as follows:T12-L1 level, L1-2 level: No evidence for compressive disc disease. No compressive spondylitic change identified. Neural foramina are patent. Joints are normal.L2-3 level: Broad-based disc bulging effaces the thecal sac and contributes to lateral recess narrowing bilaterally. The neural foramina are patent. The joints are normal.L3-4 level: Mild broad-based disc bulging effaces the thecal sac and contributes to moderate lateral recess narrowing bilaterally right worse than left. Neural foramina are patent. Bilateral facet arthropathy is present.L4-5 level: There is mild anterolisthesis L4 on L5. There is broad-based disc protrusion which effaces the thecal sac and contributes along with bilateral facet arthropathy to a moderate canal stenosis with lateral recess and foraminal narrowing bilaterally right worse than left.L5-S1 level: Broad-based disc bulging does not displace the S1 nerve roots or contributes to thecal sac effacement however it does contribute along with bilateral facet arthropathy to lateral recess narrowing bilaterally. The neural foramina are patent.IMPRESSION:No acute traumatic abnormality identifiedEvaluation of each disc level given in detail aboveTHIS IS AN ELECTRONICALLY VERIFIED FINAL REPORT11/09/2023 9:16 AM - Electronically signed by Feroz Sorensen MD
[2023-11-09] MEDS ORDERED: CONSULT PHARMACY - POTASSIUM & MAGNESIUM XX SCH (12:07)
[2023-11-09] MEDS ORDERED: ZANAFLEX PO PRN (12:07)
[2023-11-09] MEDS: LYRICA CAP 50 mg PO SCH (14:07)
[2023-11-09 15:27] VITALS: BMI 36.3
[2023-11-09] MEDS: NORCO 7.5/325 MG TAB PO PRN (19:57)
[2023-11-09] MEDS: COREG TAB 6.25 MG PO SCH (21:25)
[2023-11-09] MEDS: ENTRESTO 24/26 MG TABLET PO SCH (21:25)
[2023-11-09] MEDS: DEMADEX PO SCH (21:29)
[2023-11-10] MEDS: TYLENOL 325 MG TAB PO PRN (04:59)
[2023-11-10 05:19] LABS: ALANINE AMINOTRANSFERASE 8 Units/L (12-78); ALBUMIN 2.4 g/dL (3.4-5.0); ALKALINE PHOSPHATASE 54 Units/L (46-116); ASPARTATE AMINO TRANSFERASE 16 Units/L (15-37); BLOOD UREA NITROGEN 59 mg/dL (7-18); CALCIUM 8.6 mg/dL (8.5-10.1); CARBON DIOXIDE 31.6 mmol/L (21-32); CHLORIDE 103 mmol/L (98-107); COR CA(FOR HYPOALB) 9.9 mg/dL (8.5-10.1); CREATININE 2.99 mg/dL (0.55-1.02); GLUCOSE 103 mg/dL (65-99); POTASSIUM 3.7 mmol/L (3.5-5.1); SODIUM 140 mmol/L (136-145); TOTAL PROTEIN 5.7 g/dL (6.4-8.2); eGFR NON BLACK RACES 16 (>60)
[2023-11-10 05:25] LABS: BASOPHILS # (AUTO) 0.1 X10^3/uL (0.0-0.1); BASOPHILS % (AUTO) 0.5 % (0.2-1.0); EOSINOPHILS # (AUTO) 0.3 x10^3/uL (0.0-0.2); EOSINOPHILS % (AUTO) 2.1 % (0.9-2.9); HEMATOCRIT 23.5 % (36.0-47.0); LYMPHOCYTES # (AUTO) 1.8 X10^3/uL (1.3-2.9); LYMPHOCYTES % (AUTO) 13.2 % (21.0-51.0); MEAN CORPUSCULAR HEMOGLOBIN 28.6 pg (27.0-34.0); MEAN CORPUSCULAR HGB CONC 34.2 g/dL (33.0-35.0); MEAN CORPUSCULAR VOLUME 83.8 fL (80.0-100.0); MONOCYTES # (AUTO) 1.5 x10^3/uL (0.3-0.8); MONOCYTES % (AUTO) 11.1 % (0.0-13.0); NEUTROPHILS # (AUTO) 9.8 x10^3/uL (2.2-4.8); NEUTROPHILS % (AUTO) 73.1 % (42.0-75.0); PLATELET COUNT 146 X10^3/uL (150.0-450.0); RED BLOOD COUNT 2.81 X10^6/uL (3.5-5.4); RED CELL DISTRIBUTION WIDTH 14.6 % (11.6-16.5); WHITE BLOOD COUNT 13.4 X10^3/uL (3.6-10.0)
[2023-11-10] MEDS: MAALOX or MYLANTA PO PRN (05:56)
[2023-11-10] MEDS: CYMBALTA PO SCH (08:53)
[2023-11-10] MEDS: SYNTHROID 75 mcg TAB PO SCH (08:54)
[2023-11-10] MEDS: DEMADEX PO SCH (09:00)
[2023-11-10] MEDS: PATIENT'S HOME MEDICATION (Linaclotide [Linzess] 72 mcg capsule) PO SCH (09:30)
--- NOTE | 2023-11-10 09:40 | RAD ---
EXAM:CHEST, 1 VIEWHISTORY:CHF; HX- HTN SX- CHOLECYSTECTOMY, APPENDECTOMY, HYSTERECTOMY, ORTHOCOMPARISON:Prior study or studies were utilized for comparison during interpretation with the most relevant dated 11/09/2023TECHNIQUE:CHEST, 1 VIEWFINDINGS:Chest:Lines and tubes: NoneMediastinum: Cardiac and mediastinal shadow is within normal limits for size and contour.Pulmonary vessels: No pulmonary vascular congestion.Lung robertson: No suspicious airspace opacity.Pleura: No effusion. No pneumothorax.Bones and soft tissues: No acute osseous or soft tissue abnormality.IMPRESSION:1. No acute cardiopulmonary abnormalityTHIS IS AN ELECTRONICALLY VERIFIED FINAL REPORT11/10/2023 9:29 AM - Electronically signed by Thierno Khan MD
[2023-11-10] MEDS ORDERED: NS 1/2 1,000 ML IV 1,000 ML IV ONE (10:49)
[2023-11-10] MEDS: NS 1/2 1,000 ML IV 1,000 ML IV SCH (10:50)
[2023-11-10] MEDS: ROCEPHIN VIAL 1 GRAM 1 G in NS 100 ML IV 100 ML IV SCH (14:00)
--- NOTE | 2023-11-10 14:44 | DR.H&P ---
H&P History & Physical for Day of: H&P Date: 11/09/23 Chief Complaint Chief Complaint: weakness, fall Allergies Allergies Allergy/AdvReac Type Severity Reaction Status Date / Time No Known Drug Allergies Allergy Verified 09/13/23 14:18 History of Present Illness History of Present Illness: 72 y/o female in via EMS for evaluation. Patient awoke this a.m., had severe low back pain try to get out of bed. Denies any recent trauma to her low back. Patient relatively pain-free with laying still. Pain is severe when she attempts to move. No numbness of the lower extremities, no incontinence of bowel or bladder. Patient with a history of chronic back issues, has a stimulator in place. Patient is on chronic narcotic therapy for her pain, did not take this a.m.. Per spouse patient with a history of sudden episodes of generalized weakness and frequent falls. Hit her face on the sink with an episode last week. Denies headache, visual changes, URI symptoms, bowel or bladder issues. Patient was seen and admitted here last month for severe weakness, UTI. Denies any current urinary issues, no fever or chills. Spouse believes she is too weak to care for herself at home, requests admission. Pt admitted for evaluation and treatment of acute illness. Past Medical History Past Medical History: Hypertension Past Surgical History Surgical History: Appendectomy, Cholecystectomy, Hysterectomy, Joint Replacement and Ortho Surgery Family History Family Medical History: Cancer, MD and Hypertension Social History Does patient currently use any type of tobacco product: No Have you used tobacco products in the last 12 months: No Type of Tobacco Use: None Does any household member use tobacco: No Alcohol Use: None Drug Use: None Medications Home Medications: Home Medications Medication Instructions Recorded Confirmed Type alprazolam 0.25 mg tablet 0.125 - 0.25 mg PO BID PRN 07/28/21 11/09/23 History duloxetine 60 mg capsule,delayed 60 mg PO QAM anxiety 07/28/21 11/09/23 History release hydrocodone 7.5 mg-acetaminophen 1 tab PO BID PRN 07/28/21 11/09/23 History 325 mg tablet levothyroxine 75 mcg tablet 75 mcg PO QAM hypothyroidism 07/28/21 11/09/23 History potassium chloride 10 mEq 10 meq PO BID PRN 07/28/21 11/09/23 History tablet,extended release pregabalin 150 mg capsule 150 mg PO TID 07/28/21 11/09/23 History tizanidine 4 mg tablet 6 mg PO QHS PRN 07/28/21 11/09/23 History torsemide 20 mg tablet 40 mg PO BID 02/04/22 11/09/23 History ergocalciferol (vitamin D2) 1,250 1,250 mcg PO 2XW 09/13/23 11/09/23 History mcg (50,000 unit) capsule hydrochlorothiazide 25 mg tablet 25 mg PO QDAY 09/13/23 11/09/23 History linaclotide 72 mcg capsule 72 mcg PO QAM 09/13/23 11/09/23 History (Linzess) sacubitril 49 mg-valsartan 51 mg 1 tab PO BID 09/13/23 11/09/23 History tablet (Entresto) carvedilol 6.25 mg tablet 6.25 mg PO BID 11/09/23 11/09/23 History ibandronate 150 mg tablet 150 mg PO QMONTH 11/09/23 11/09/23 History Labs 11/10/23 04:38 11/10/23 04:38 Labs: Laboratory WBC 13.4 X10^3/uL (3.6-10.0) H 11/10/23 04:38 RBC 2.81 X10^6/uL (3.5-5.4) L 11/10/23 04:38 Hgb 8.0 g/dL (12.0-16.0) L D 11/10/23 04:38 Hct 23.5 % (36.0-47.0) L 11/10/23 04:38 MCV 83.8 fL (80.0-100.0) 11/10/23 04:38 MCH 28.6 pg (27.0-34.0) 11/10/23 04:38 MCHC 34.2 g/dL (33.0-35.0) 11/10/23 04:38 RDW 14.6 % (11.6-16.5) 11/10/23 04:38 Plt Count 146 X10^3/uL (150.0-450.0) L 11/10/23 04:38 MPV 11.0 fL (7.4-11.0) 11/10/23 04:38 Neut % (Auto) 73.1 % (42.0-75.0) 11/10/23 04:38 Lymph % (Auto) 13.2 % (21.0-51.0) L 11/10/23 04:38 [place] % (Auto) 11.1 % (0.0-13.0) 11/10/23 04:38 Eos % (Auto) 2.1 % (0.9-2.9) 11/10/23 04:38 Baso % (Auto) 0.5 % (0.2-1.0) 11/10/23 04:38 Neut # (Auto) 9.8 x10^3/uL (2.2-4.8) H 11/10/23 04:38 Lymph # (Auto) 1.8 X10^3/uL (1.3-2.9) 11/10/23 04:38 [place] # (Auto) 1.5 x10^3/uL (0.3-0.8) H 11/10/23 04:38 Eos # (Auto) 0.3 x10^3/uL (0.0-0.2) H 11/10/23 04:38 Baso # (Auto) 0.1 X10^3/uL (0.0-0.1) 11/10/23 04:38 Absolute Nucleated RBC 0.2 /100WBC 11/10/23 04:38 Sodium 140 mmol/L (136-145) 11/10/23 04:38 Corrected Sodium TNP 11/10/23 04:38 Potassium 3.7 mmol/L (3.5-5.1) 11/10/23 04:38 Chloride 103 mmol/L (98-107) 11/10/23 04:38 Carbon Dioxide 31.6 mmol/L (21-32) 11/10/23 04:38 BUN 59 mg/dL (7-18) H 11/10/23 04:38 Creatinine 2.99 mg/dL (0.55-1.02) H 11/10/23 04:38 Est GFR (MDRD) Af Amer 20 (>60) L 11/10/23 04:38 Est GFR (MDRD) Non-Af 16 (>60) L 11/10/23 04:38 Glucose 103 mg/dL (65-99) H 11/10/23 04:38 POC Glucose (mg/dL) 98 mg/dL (65-99) 11/09/23 12:33 Calcium 8.6 mg/dL (8.5-10.1) 11/10/23 04:38 Corrected Calcium 9.9 mg/dL (8.5-10.1) 11/10/23 04:38 Magnesium 2.2 mg/dL (2.0-2.9) 11/09/23 08:08 Total Bilirubin 0.90 mg/dL (0.2-1.0) 11/10/23 04:38 AST 16 Units/L (15-37) 11/10/23 04:38 ALT 8 Units/L (12-78) L 11/10/23 04:38 Alkaline Phosphatase 54 Units/L (46-116) 11/10/23 04:38 Creatine Kinase 47 Units/L (26-192) 11/10/23 09:05 Troponin I High Sens 8.7 ng/L (4.0-60.0) 11/10/23 09:05 B-Natriuretic Peptide 73.5 pg/mL (0-79) 11/10/23 09:05 Total Protein 5.7 g/dL (6.4-8.2) L 11/10/23 04:38 Albumin 2.4 g/dL (3.4-5.0) L 11/10/23 04:38 Globulin 3.3 g/dL (2.5-4.5) 11/10/23 04:38 Albumin/Globulin Ratio 0.7 Ratio (1.1-2.1) L 11/10/23 04:38 TSH 3rd Generation 0.473 uIU/mL (0.358-3.74) 11/09/23 08:08 Specimen Type Catherized urine 11/09/23 08:35 Urine Color Yellow (YELLOW) 11/09/23 08:35 Urine Appearance Clear (CLEAR) 11/09/23 08:35 Urine pH 6.5 (5.0 - 8.0) 11/09/23 08:35 Ur Specific [place] 1.010 (1.000-1.030) 11/09/23 08:35 Urine Protein 2+ (NEGATIVE) 11/09/23 08:35 Urine Glucose (UA) Negative (NEGATIVE) 11/09/23 08:35 Urine Ketones Negative (NEGATIVE) 11/09/23 08:35 Urine Blood Negative (NEGATIVE) 11/09/23 08:35 Urine Nitrite Negative (NEGATIVE) 11/09/23 08:35 Urine Bilirubin Negative (NEGATIVE) 11/09/23 08:35 Urine Urobilinogen Normal (NORMAL) 11/09/23 08:35 Ur Leukocyte Esterase Negative (NEGATIVE) 11/09/23 08:35 Urine RBC None seen /HPF (0-3) 11/09/23 08:35 Urine WBC None seen /HPF (0-5) 11/09/23 08:35 Ur Squamous Epith Cells Few /HPF (NEGATIVE) 11/09/23 08:35 Amorphous Sediment Trace /HPF (NEGATIVE) 11/09/23 08:35 Urine Bacteria Negative /HPF (NEGATIVE) 11/09/23 08:35 Ur Culture Indicated? No/not indicated 11/09/23 08:35 Review of Systems Constitutional: Weakness and Malaise Eyes: No Symptoms Reported ENT: No Symptoms Reported Respiratory: Shortness of Breath Cardiovascular: Edema Gastrointestinal: Nausea Genitourinary: Other (recent UTI) Musculoskeletal: Back Pain Skin: Bruising Neurological: Weakness, Incoordination and Confusion Physical Exam Vital Signs: Vital Signs Temperature 98.7 F Temperature 99.3 F Pulse Rate [Left Brachial] 73 Pulse Rate [Left Brachial] 76 Respiratory Rate 16 Respiratory Rate 18 Blood Pressure [Left Arm] 117/54 Blood Pressure [Left Arm] 112/50 O2 Sat by Pulse Oximetry 97 O2 Sat by Pulse Oximetry 97 Oriented: Person Eyes: Normal Nose: Normal Throat: Dry Respiratory: Diminished Throughout Cardiovascular: Normal and Murmur : Dysuria Auscultation: Bowel Sounds: Decreased Palpation: Normal Tenderness: Normal Skin: Decreased Turgur and Bruising Musculoskeletal: Back:Lumbar, Deformity, Motor Deficit and Sensory Deficit Psychiatric: Depression Affect: Depressed Speech Pattern: Appropriate and Delayed Assessment/Plan (1) [id number] kidney injury: Narrative Support Text: ADMIT, IV HYDRATION BC AND UC CT HEAD ON ER ARRIVAL, VERIFY HOME MEDICATION I&oS, BP CONTROL PRN SUPPLEMENTAL O2 Status: Acute (2) UTI (urinary tract infection): Status: Acute (3) Colitis: Status: Acute (4) Fall: Status: Acute (5) GERD (gastroesophageal reflux disease): Status: Chronic (6) Hypertension: Status: Chronic (7) Hyperthyroidism: Status: Chronic (8) CHF (congestive heart failure): Status: Acute
[2023-11-10] MEDS: ROCEPHIN VIAL 1 GRAM ONE (20:09)
[2023-11-11] MEDS: NS 1/2 1,000 ML IV 1,000 ML IV ONE (01:51)
[2023-11-11 06:07] LABS: BASOPHILS # (AUTO) 0.1 X10^3/uL (0.0-0.1); BASOPHILS % (AUTO) 0.8 % (0.2-1.0); EOSINOPHILS # (AUTO) 0.4 x10^3/uL (0.0-0.2); EOSINOPHILS % (AUTO) 4.5 % (0.9-2.9); HEMATOCRIT 22.3 % (36.0-47.0); HEMOGLOBIN 7.4 g/dL (12.0-16.0); LYMPHOCYTES # (AUTO) 1.3 X10^3/uL (1.3-2.9); LYMPHOCYTES % (AUTO) 13.8 % (21.0-51.0); MEAN CORPUSCULAR HEMOGLOBIN 28.2 pg (27.0-34.0); MEAN CORPUSCULAR HGB CONC 33.4 g/dL (33.0-35.0); MEAN CORPUSCULAR VOLUME 84.7 fL (80.0-100.0); MEAN PLATELET VOLUME 11.2 fL (7.4-11.0); MONOCYTES % (AUTO) 11.3 % (0.0-13.0); NEUTROPHILS # (AUTO) 6.4 x10^3/uL (2.2-4.8); NEUTROPHILS % (AUTO) 69.6 % (42.0-75.0); PLATELET COUNT 139 X10^3/uL (150.0-450.0); RED BLOOD COUNT 2.63 X10^6/uL (3.5-5.4); RED CELL DISTRIBUTION WIDTH 14.4 % (11.6-16.5); WHITE BLOOD COUNT 9.2 X10^3/uL (3.6-10.0)
[2023-11-11 06:28] LABS: CALCIUM 8.2 mg/dL (8.5-10.1); COR CA(FOR HYPOALB) 9.8 mg/dL (8.5-10.1); CREATININE 3.27 mg/dL (0.55-1.02); POTASSIUM 3.5 mmol/L (3.5-5.1); TOTAL PROTEIN 5.4 g/dL (6.4-8.2)
[2023-11-11] MEDS ORDERED: CONSULT PHARMACY - POTASSIUM & MAGNESIUM XX SCH (07:00)
[2023-11-11] MEDS ORDERED: NS 1,000 ML IV 1,000 ML IV SCH (08:00)
[2023-11-11 08:21] LABS: RETICULOCYTE % 1.44 % (0.8-2.2)
[2023-11-11] MEDS: MICRO K EXTEN CAP 10 MEQ PO SCH (09:31)
[2023-11-11] MEDS: NS 250 ML IV 250 ML IV ONE (09:31)
[2023-11-11] MEDS: NS 1,000 ML IV 1,000 ML IV ONE (12:06)
--- NOTE | 2023-11-11 13:35 | CT ---
EXAM: ABDOMEN/PELVIS W/O CON HISTORY: ABD PAIN; COMPARISON: No relevant prior studies were available for comparison at the time of interpretation.. TECHNIQUE: CT images were obtained. Multiplanar reconstructions were created on a separate workstation and used during interpretation. All CT scans at this facility is dose modulation, iterative reconstruction, an d/or weight-based dosing as appropriate to reduce radiation to levels as low as reasonably achievable (ALARA). Postprocessing details, radiation dose, and contrast dose (if applicable) are recorded in t he patient's medical record. FINDINGS: Lung bases are clear. No acute cardiac abnormality. Scattered calcifications of the coronary arteri es. Mitral annulus calcification. ABDOMEN: Liver: Normal size and contour. No suspicious masses. No biliary dilation. Gallbladder: Status post cholecystectomy. Pancreas: No mass or ductal dilation. There is peripancreatic fat stranding seen near the pancreatic head Spleen: Normal morphology. Adrenal glands: No suspicious mass. No hemorrhage. Kidneys: Normal size and morphology. No hydronephrosis. No obstructing calculus. No solid mass. Upper GI: Gastric antrum and proximal duodenum wall thickening and adjacent fat stranding noted Small bowel: No evidence of high-grade obstruction Large bowel: Normal caliber and wall thickness Appendix: Not seen but no secondary signs of acute appendicitis. Peritoneum: No free air or significant free fluid Lymph nodes: No enlarged abdominal lymph nodes. Vasculature: Aortoiliac atherosclerosis without significant stenosis. PELVIS: Bladder: Bladder is intact and unremarkable. Reproductive System: No acute reproductive organ abnormality. EXTRAPERITONEAL TISSUES: Abdominal wall: No acute abnormality Musculoskeletal: Levoscoliosis of the lumbar spine. No destructive osseous lesion Other soft tissues: There is a spinal cord stimulator. IMPRESSION: 1. Pancreatitis with likely reactive gastritis/duodenitis 2. Levoscoliosis of the lumbar spine THIS IS AN ELECTRONICALLY VERIFIED FINAL REPORT 11/11/2023 1:31 PM - Electronically signed by Thierno Khan MD
--- NOTE | 2023-11-11 14:25 | CT ---
EXAM: CT face without IV contrast HISTORY: PAIN AND PRESSURE TO LEFT EYE - COMPARISON: None. TECHNIQUE: Multiple axial images of the facial structures were obtained from the mandible to superior portions o f the orbits. Study is performed without IV contrast. Dose reduction techniques including Automated Exposure Control (AEC) and adjustment of mA and kV were utilized. FINDINGS: Globes appear symmetric. Extraocular muscles are normal in size. Optic nerves appear normal in size . Paranasal sinuses are clear. No facial bone fracture is seen. Tiny area of edema is seen in the subcutaneous soft tissues of the left cheek. No tonsillar enlargem ent is seen. Parotid glands appear normal. Visualized portions of the submandibular glands appear s ymmetric. Middle ears and mastoid air cells appear clear of fluid. IMPRESSION: Mild edema is seen in the subcutaneous region of the left cheek. This could be ecchymosis, celluliti s, or mild serous fluid. THIS IS AN ELECTRONICALLY VERIFIED FINAL REPORT 11/11/2023 2:22 PM - Electronically signed by Hilario Estrada MD
[2023-11-11] MEDS: NS 1,000 ML IV 1,000 ML IV SCH (20:31)
[2023-11-12 06:03] LABS: BASOPHILS % (AUTO) 0.6 % (0.2-1.0); EOSINOPHILS # (AUTO) 0.6 x10^3/uL (0.0-0.2); EOSINOPHILS % (AUTO) 9.2 % (0.9-2.9); HEMATOCRIT 24.8 % (36.0-47.0); HEMOGLOBIN 8.4 g/dL (12.0-16.0); LYMPHOCYTES # (AUTO) 1.1 X10^3/uL (1.3-2.9); LYMPHOCYTES % (AUTO) 15.8 % (21.0-51.0); MEAN CORPUSCULAR HEMOGLOBIN 28.2 pg (27.0-34.0); MEAN CORPUSCULAR HGB CONC 33.8 g/dL (33.0-35.0); MEAN CORPUSCULAR VOLUME 83.4 fL (80.0-100.0); MEAN PLATELET VOLUME 11.1 fL (7.4-11.0); MONOCYTES # (AUTO) 0.9 x10^3/uL (0.3-0.8); MONOCYTES % (AUTO) 12.7 % (0.0-13.0); NEUTROPHILS # (AUTO) 4.3 x10^3/uL (2.2-4.8); NEUTROPHILS % (AUTO) 61.7 % (42.0-75.0); PLATELET COUNT 168 X10^3/uL (150.0-450.0); RED BLOOD COUNT 2.98 X10^6/uL (3.5-5.4); RED CELL DISTRIBUTION WIDTH 14.4 % (11.6-16.5); WHITE BLOOD COUNT 6.9 X10^3/uL (3.6-10.0)
[2023-11-12 06:10] LABS: ALANINE AMINOTRANSFERASE 9 Units/L (12-78); ALBUMIN 2.2 g/dL (3.4-5.0); ALKALINE PHOSPHATASE 55 Units/L (46-116); ASPARTATE AMINO TRANSFERASE 13 Units/L (15-37); BLOOD UREA NITROGEN 52 mg/dL (7-18); CALCIUM 8.5 mg/dL (8.5-10.1); CARBON DIOXIDE 32.7 mmol/L (21-32); CHLORIDE 103 mmol/L (98-107); COR CA(FOR HYPOALB) 9.9 mg/dL (8.5-10.1); CREATININE 2.59 mg/dL (0.55-1.02); GLUCOSE 93 mg/dL (65-99); MAGNESIUM 1.8 mg/dL (2.0-2.9); POTASSIUM 3.7 mmol/L (3.5-5.1); SODIUM 142 mmol/L (136-145); TOTAL PROTEIN 5.9 g/dL (6.4-8.2); eGFR NON BLACK RACES 19 (>60)
[2023-11-12] MEDS ORDERED: CONSULT PHARMACY - POTASSIUM & MAGNESIUM XX SCH (07:00)
[2023-11-12] MEDS: MICRO K EXTEN CAP 10 MEQ PO SCH (09:32)
[2023-11-12] MEDS: MAG-OX TAB PO ONE (09:32)
--- NOTE | 2023-11-12 11:32 | PCM.PROG ---
Progress Note Progress Note for Day of Date of Exam: 11/12/23 Subjective Subjective: Patient seen at bedside, no acute events. She is feeling better. She is currently admitted for UTI, pancreatitis and gastritis. She denies N/V or diarrhea. She states her abdominal pain is better. She is currently on IV rocephin which is resistant Staph hemolyticus in the urine. Labs/imaging reviewed -Hgb 8.4 BUN/Cr: 52/2.59 Mag 1.8 -CTAP: acute pancreatitis and gastritis -Urins Cx: Staph Hemolyticus -Blood Cx: negative -CT-facial: left cheek cellulitis/ecchymosis Plan: will DC Rocephin, pharmacy consult for Vanc. Continue hydration and pain control. Add pantoprazole. Follow pending cultures. Continue home medications. Replace electrolytes prn. Ambulate as tolerated. Monitor AM labs/imaging. Past Medical Family Social History Allergies: Allergies No Known Drug Allergies Allergy (Verified 09/13/23 14:18) Vital Signs and I&O's Vital Signs: Vital Signs Temperature 97 F Temperature 98 F Pulse Rate [Left Brachial] 76 Pulse Rate [Left Brachial] 69 Respiratory Rate 18 Respiratory Rate 19 Blood Pressure [Right Arm] 166/72 Blood Pressure [Right Arm] 167/72 O2 Sat by Pulse Oximetry 97 O2 Sat by Pulse Oximetry 95 Intake and Output: Intake & Output 11/09/23 11/10/23 11/11/23 11/12/23 23:59 23:59 23:59 23:59 Intake Total 971 / 971 1250 / 1250 3726 / 3726 650 / 650 Output Total 1280 / 1280 420 / 420 Balance 971 / 971 1225 / 1225 2446 / 2446 230 / 230 Physical Exam Oriented: Person Eyes: Normal Nose: Normal Throat: Normal Respiratory: Generalized and Diminished Cardiovascular: Normal and Murmur Auscultation: Bowel Sounds: Decreased Palpation: Normal Tenderness: Normal Skin: Decreased Turgur and Bruising Musculoskeletal: Back:Lumbar, Deformity, Motor Deficit and Sensory Deficit Psychiatric: Depression Mood Description: Calm Affect: Depressed Speech Pattern: Clear and Appropriate Laboratory and Diagnostics 11/12/23 05:42 11/12/23 05:42 Labs: 11/10/23 09:05 Blood Blood Culture - Preliminary 11/10/23 08:57 Blood Blood Culture - Preliminary 11/10/23 13:05 Urine,Clean Catch Urine Culture - Final Staphylococcus Haemolyticus Laboratory WBC 6.9 X10^3/uL (3.6-10.0) 11/12/23 05:42 RBC 2.98 X10^6/uL (3.5-5.4) L 11/12/23 05:42 Hgb 8.4 g/dL (12.0-16.0) L 11/12/23 05:42 Hct 24.8 % (36.0-47.0) L 11/12/23 05:42 MCV 83.4 fL (80.0-100.0) 11/12/23 05:42 MCH 28.2 pg (27.0-34.0) 11/12/23 05:42 MCHC 33.8 g/dL (33.0-35.0) 11/12/23 05:42 RDW 14.4 % (11.6-16.5) 11/12/23 05:42 Plt Count 168 X10^3/uL (150.0-450.0) 11/12/23 05:42 MPV 11.1 fL (7.4-11.0) H 11/12/23 05:42 Neut % (Auto) 61.7 % (42.0-75.0) 11/12/23 05:42 Lymph % (Auto) 15.8 % (21.0-51.0) L 11/12/23 05:42 [place] % (Auto) 12.7 % (0.0-13.0) 11/12/23 05:42 Eos % (Auto) 9.2 % (0.9-2.9) H 11/12/23 05:42 Baso % (Auto) 0.6 % (0.2-1.0) 11/12/23 05:42 Neut # (Auto) 4.3 x10^3/uL (2.2-4.8) 11/12/23 05:42 Lymph # (Auto) 1.1 X10^3/uL (1.3-2.9) L 11/12/23 05:42 [place] # (Auto) 0.9 x10^3/uL (0.3-0.8) H 11/12/23 05:42 Eos # (Auto) 0.6 x10^3/uL (0.0-0.2) H 11/12/23 05:42 Baso # (Auto) 0.0 X10^3/uL (0.0-0.1) 11/12/23 05:42 Absolute Nucleated RBC 0.1 /100WBC 11/12/23 05:42 Absolute Retic 0.0377 10^6/uL 11/11/23 05:35 Percent Retic 1.44 % (0.8-2.2) 11/11/23 05:35 Sodium 142 mmol/L (136-145) 11/12/23 05:42 Corrected Sodium TNP 11/12/23 05:42 Potassium 3.7 mmol/L (3.5-5.1) 11/12/23 05:42 Chloride 103 mmol/L (98-107) 11/12/23 05:42 Carbon Dioxide 32.7 mmol/L (21-32) H 11/12/23 05:42 BUN 52 mg/dL (7-18) H 11/12/23 05:42 Creatinine 2.59 mg/dL (0.55-1.02) H 11/12/23 05:42 Est GFR (MDRD) Af Amer 23 (>60) L 11/12/23 05:42 Est GFR (MDRD) Non-Af 19 (>60) L 11/12/23 05:42 Glucose 93 mg/dL (65-99) 11/12/23 05:42 POC Glucose (mg/dL) 98 mg/dL (65-99) 11/09/23 12:33 Calcium 8.5 mg/dL (8.5-10.1) 11/12/23 05:42 Corrected Calcium 9.9 mg/dL (8.5-10.1) 11/12/23 05:42 Magnesium 1.8 mg/dL (2.0-2.9) L 11/12/23 05:42 Iron 8 ug/dL (50-175) L 11/11/23 05:35 TIBC 194 ug/dL (250-450) L 11/11/23 05:35 Transferrin 145 mg/dL (202-364) L 11/11/23 05:35 Ferritin 176 ng/mL (8-252) 11/11/23 05:35 Total Bilirubin 0.40 mg/dL (0.2-1.0) 11/12/23 05:42 AST 13 Units/L (15-37) L 11/12/23 05:42 ALT 9 Units/L (12-78) L 11/12/23 05:42 Alkaline Phosphatase 55 Units/L (46-116) 11/12/23 05:42 Creatine Kinase 47 Units/L (26-192) 11/10/23 09:05 Troponin I High Sens 8.7 ng/L (4.0-60.0) 11/10/23 09:05 B-Natriuretic Peptide 73.5 pg/mL (0-79) 11/10/23 09:05 Total Protein 5.9 g/dL (6.4-8.2) L 11/12/23 05:42 Albumin 2.2 g/dL (3.4-5.0) L 11/12/23 05:42 Globulin 3.7 g/dL (2.5-4.5) 11/12/23 05:42 Albumin/Globulin Ratio 0.6 Ratio (1.1-2.1) L 11/12/23 05:42 Vitamin B12 498 pg/mL (193-986) 11/11/23 05:35 Folate 11.8 ng/mL (>8.6) 11/11/23 05:35 TSH 3rd Generation 0.473 uIU/mL (0.358-3.74) 11/09/23 08:08 Specimen Type Catherized urine 11/09/23 08:35 Urine Color Yellow (YELLOW) 11/09/23 08:35 Urine Appearance Clear (CLEAR) 11/09/23 08:35 Urine pH 6.5 (5.0 - 8.0) 11/09/23 08:35 Ur Specific [place] 1.010 (1.000-1.030) 11/09/23 08:35 Urine Protein 2+ (NEGATIVE) 11/09/23 08:35 Urine Glucose (UA) Negative (NEGATIVE) 11/09/23 08:35 Urine Ketones Negative (NEGATIVE) 11/09/23 08:35 Urine Blood Negative (NEGATIVE) 11/09/23 08:35 Urine Nitrite Negative (NEGATIVE) 11/09/23 08:35 Urine Bilirubin Negative (NEGATIVE) 11/09/23 08:35 Urine Urobilinogen Normal (NORMAL) 11/09/23 08:35 Ur Leukocyte Esterase Negative (NEGATIVE) 11/09/23 08:35 Urine RBC None seen /HPF (0-3) 11/09/23 08:35 Urine WBC None seen /HPF (0-5) 11/09/23 08:35 Ur Squamous Epith Cells Few /HPF (NEGATIVE) 11/09/23 08:35 Amorphous Sediment Trace /HPF (NEGATIVE) 11/09/23 08:35 Urine Bacteria Negative /HPF (NEGATIVE) 11/09/23 08:35 Ur Culture Indicated? No/not indicated 11/09/23 08:35 Stl Occult Blood (IFOB) Negative (NEGATIVE) 11/11/23 18:55 Plan (1) Pancreatitis: Status: Acute Qualifiers: Chronicity: acute Pancreatitis type: unspecified pancreatitis type Acute pancreatitis complication: no infection or necrosis Qualified Code(s): K85.90 - Acute pancreatitis without necrosis or infection, unspecified (2) Gastritis: Status: Acute Qualifiers: Gastritis type: unspecified gastritis Chronicity: unspecified Gastritis bleeding: without bleeding Qualified Code(s): K29.70 - Gastritis, unspecified, without bleeding (3) [id number] kidney injury: Status: Acute Qualifiers: Acute renal failure type: unspecified Chronic kidney disease stage: unspecified stage Qualified Code(s): N17.9 - Acute kidney failure, unspecified; N18.9 - Chronic kidney disease, unspecified (4) UTI (urinary tract infection): Status: Acute Qualifiers: Urinary tract infection type: acute cystitis Hematuria presence: without hematuria Qualified Code(s): N30.00 - Acute cystitis without hematuria (5) Fall: Status: Acute Qualifiers: Encounter type: subsequent encounter Qualified Code(s): W19.XXXD - Unspecified fall, subsequent encounter (6) GERD (gastroesophageal reflux disease): Status: Chronic Qualifiers: Esophagitis presence: without esophagitis Qualified Code(s): K21.9 - Gastro-esophageal reflux disease without esophagitis (7) Hypertension: Status: Chronic Qualifiers: Hypertension type: primary hypertension Qualified Code(s): I10 - Essential (primary) hypertension (8) Hyperthyroidism: Status: Chronic (9) CHF (congestive heart failure): Status: Acute Qualifiers: Heart failure type: unspecified Heart failure chronicity: unspecified Qualified Code(s): I50.9 - Heart failure, unspecified (10) Hypomagnesemia: Status: Acute
[2023-11-12] MEDS: PROTONIX TAB 40 MG PO SCH (11:58)
[2023-11-12] MEDS ORDERED: PHARMACY CONSULT - VANCOMYCIN XX SCH (12:00)
[2023-11-12] MEDS: VANCOMYCIN IV *PREMIX 750 mg/150 ML BAG 750 MG/150 ML PIGGYBACK IV SCH (14:17)
[2023-11-12] MEDS: ALPRAZOLAM ODT PO PRN (23:18)
[2023-11-13 04:44] LABS: BASOPHILS # (AUTO) 0.1 X10^3/uL (0.0-0.1); BASOPHILS % (AUTO) 1.1 % (0.2-1.0); EOSINOPHILS # (AUTO) 0.6 x10^3/uL (0.0-0.2); HEMATOCRIT 25.2 % (36.0-47.0); HEMOGLOBIN 8.5 g/dL (12.0-16.0); LYMPHOCYTES % (AUTO) 14.2 % (21.0-51.0); MEAN CORPUSCULAR HEMOGLOBIN 28.4 pg (27.0-34.0); MEAN CORPUSCULAR HGB CONC 33.8 g/dL (33.0-35.0); MEAN PLATELET VOLUME 10.3 fL (7.4-11.0); MONOCYTES # (AUTO) 0.9 x10^3/uL (0.3-0.8); MONOCYTES % (AUTO) 13.1 % (0.0-13.0); NEUTROPHILS # (AUTO) 4.3 x10^3/uL (2.2-4.8); NEUTROPHILS % (AUTO) 62.6 % (42.0-75.0); PLATELET COUNT 186 X10^3/uL (150.0-450.0); WHITE BLOOD COUNT 6.9 X10^3/uL (3.6-10.0)
[2023-11-13 04:56] LABS: ALANINE AMINOTRANSFERASE 9 Units/L (12-78); ALBUMIN 2.2 g/dL (3.4-5.0); ALKALINE PHOSPHATASE 54 Units/L (46-116); ASPARTATE AMINO TRANSFERASE 11 Units/L (15-37); BLOOD UREA NITROGEN 44 mg/dL (7-18); CALCIUM 8.7 mg/dL (8.5-10.1); CARBON DIOXIDE 30.6 mmol/L (21-32); CHLORIDE 107 mmol/L (98-107); COR CA(FOR HYPOALB) 10.1 mg/dL (8.5-10.1); CREATININE 2.12 mg/dL (0.55-1.02); GLUCOSE 89 mg/dL (65-99); MAGNESIUM 1.8 mg/dL (2.0-2.9); POTASSIUM 3.8 mmol/L (3.5-5.1); SODIUM 144 mmol/L (136-145); TOTAL PROTEIN 5.9 g/dL (6.4-8.2); eGFR NON BLACK RACES 24 (>60)
[2023-11-13] MEDS ORDERED: CONSULT PHARMACY - POTASSIUM & MAGNESIUM XX SCH (07:00)
--- NOTE | 2023-11-13 07:23 | RAD ---
EXAM: AP chest HISTORY: COMPARISON: History of CHF 11/09/1993 FINDINGS: Heart size continues normal with clear lungs and pleural spaces. IMPRESSION: No interval change or acute abnormality identified. THIS IS AN ELECTRONICALLY VERIFIED FINAL REPORT 11/13/2023 7:20 AM - Electronically signed by Tello Burt MD
[2023-11-13] MEDS: MAG-OX TAB PO ONE (09:25)
[2023-11-13] MEDS: MICRO K EXTEN CAP 10 MEQ PO SCH (09:25)
--- NOTE | 2023-11-13 15:29 | PCM.PROG ---
Progress Note Progress Note for Day of Date of Exam: 11/13/23 Subjective Subjective: Patient seen at bedside, no acute events. She is doing better, ambulated in the room yesterday. She is currently admitted for UTI, pancreatitis and gastritis. She denies N/V or diarrhea. She states her abdominal pain is better. She states it hurts a little bit when she eats. Denies any tarry or blood stools. Labs/imaging reviewed -Hgb 8.5 BUN/Cr: 44/2.12 -CTAP: acute pancreatitis and gastritis -Urins Cx: Staph Hemolyticus -Blood Cx: negative -CT-facial: left cheek cellulitis/ecchymosis Plan: Continue IV Vancomycin. Continue hydration and pain control. Continue pantoprazole, add carafate. Follow pending cultures. Continue home medications. Replace electrolytes prn. Ambulate as tolerated. Monitor AM labs/imaging. Past Medical Family Social History Allergies: Allergies No Known Drug Allergies Allergy (Verified 09/13/23 14:18) Vital Signs and I&O's Vital Signs: Vital Signs Temperature 97.3 F Temperature 97.7 F Pulse Rate [Left Brachial] 81 Pulse Rate [Left Brachial] 80 Respiratory Rate 17 Respiratory Rate 18 Blood Pressure [Right Arm] 152/67 Blood Pressure [Right Arm] 183/74 O2 Sat by Pulse Oximetry 93 O2 Sat by Pulse Oximetry 93 Intake and Output: Intake & Output 11/10/23 11/11/23 11/12/23 11/13/23 23:59 23:59 23:59 23:59 Intake Total 1250 / 1250 3726 / 3726 2618 / 2618 1821 / 1821 Output Total 1280 / 1280 820 / 820 880 / 880 Balance 1225 / 1225 2446 / 2446 1798 / 1798 941 / 941 Physical Exam Oriented: Person Eyes: Normal Nose: Normal Throat: Normal Respiratory: Generalized and Diminished Cardiovascular: Normal and Murmur Auscultation: Bowel Sounds: Normal Palpation: Normal Tenderness: Normal Skin: Decreased Turgur and Bruising Musculoskeletal: Back:Lumbar, Deformity, Motor Deficit and Sensory Deficit Psychiatric: Depression Mood Description: Calm Affect: Depressed Speech Pattern: Clear and Appropriate Laboratory and Diagnostics 11/13/23 04:21 11/13/23 04:21 Labs: 11/10/23 09:05 Blood Blood Culture - Preliminary 11/10/23 08:57 Blood Blood Culture - Preliminary 11/10/23 13:05 Urine,Clean Catch Urine Culture - Final Staphylococcus Haemolyticus Laboratory WBC 6.9 X10^3/uL (3.6-10.0) 11/13/23 04:21 RBC 3.00 X10^6/uL (3.5-5.4) L 11/13/23 04:21 Hgb 8.5 g/dL (12.0-16.0) L 11/13/23 04:21 Hct 25.2 % (36.0-47.0) L 11/13/23 04:21 MCV 84.0 fL (80.0-100.0) 11/13/23 04:21 MCH 28.4 pg (27.0-34.0) 11/13/23 04:21 MCHC 33.8 g/dL (33.0-35.0) 11/13/23 04:21 RDW 14.0 % (11.6-16.5) 11/13/23 04:21 Plt Count 186 X10^3/uL (150.0-450.0) 11/13/23 04:21 MPV 10.3 fL (7.4-11.0) 11/13/23 04:21 Neut % (Auto) 62.6 % (42.0-75.0) 11/13/23 04:21 Lymph % (Auto) 14.2 % (21.0-51.0) L 11/13/23 04:21 [place] % (Auto) 13.1 % (0.0-13.0) H 11/13/23 04:21 Eos % (Auto) 9.0 % (0.9-2.9) H 11/13/23 04:21 Baso % (Auto) 1.1 % (0.2-1.0) H 11/13/23 04:21 Neut # (Auto) 4.3 x10^3/uL (2.2-4.8) 11/13/23 04:21 Lymph # (Auto) 1.0 X10^3/uL (1.3-2.9) L 11/13/23 04:21 [place] # (Auto) 0.9 x10^3/uL (0.3-0.8) H 11/13/23 04:21 Eos # (Auto) 0.6 x10^3/uL (0.0-0.2) H 11/13/23 04:21 Baso # (Auto) 0.1 X10^3/uL (0.0-0.1) 11/13/23 04:21 Absolute Nucleated RBC 0.0 /100WBC 11/13/23 04:21 Absolute Retic 0.0377 10^6/uL 11/11/23 05:35 Percent Retic 1.44 % (0.8-2.2) 11/11/23 05:35 Sodium 144 mmol/L (136-145) 11/13/23 04:21 Corrected Sodium TNP 11/13/23 04:21 Potassium 3.8 mmol/L (3.5-5.1) 11/13/23 04:21 Chloride 107 mmol/L (98-107) 11/13/23 04:21 Carbon Dioxide 30.6 mmol/L (21-32) 11/13/23 04:21 BUN 44 mg/dL (7-18) H 11/13/23 04:21 Creatinine 2.12 mg/dL (0.55-1.02) H 11/13/23 04:21 Est GFR (MDRD) Af Amer 29 (>60) L 11/13/23 04:21 Est GFR (MDRD) Non-Af 24 (>60) L 11/13/23 04:21 Glucose 89 mg/dL (65-99) 11/13/23 04:21 POC Glucose (mg/dL) 98 mg/dL (65-99) 11/09/23 12:33 Calcium 8.7 mg/dL (8.5-10.1) 11/13/23 04:21 Corrected Calcium 10.1 mg/dL (8.5-10.1) 11/13/23 04:21 Magnesium 1.8 mg/dL (2.0-2.9) L 11/13/23 04:21 Iron 8 ug/dL (50-175) L 11/11/23 05:35 TIBC 194 ug/dL (250-450) L 11/11/23 05:35 Transferrin 145 mg/dL (202-364) L 11/11/23 05:35 Ferritin 176 ng/mL (8-252) 11/11/23 05:35 Total Bilirubin 0.50 mg/dL (0.2-1.0) 11/13/23 04:21 AST 11 Units/L (15-37) L 11/13/23 04:21 ALT 9 Units/L (12-78) L 11/13/23 04:21 Alkaline Phosphatase 54 Units/L (46-116) 11/13/23 04:21 Creatine Kinase 47 Units/L (26-192) 11/10/23 09:05 Troponin I High Sens 8.7 ng/L (4.0-60.0) 11/10/23 09:05 B-Natriuretic Peptide 73.5 pg/mL (0-79) 11/10/23 09:05 Total Protein 5.9 g/dL (6.4-8.2) L 11/13/23 04:21 Albumin 2.2 g/dL (3.4-5.0) L 11/13/23 04:21 Globulin 3.7 g/dL (2.5-4.5) 11/13/23 04:21 Albumin/Globulin Ratio 0.6 Ratio (1.1-2.1) L 11/13/23 04:21 Vitamin B12 498 pg/mL (193-986) 11/11/23 05:35 Folate 11.8 ng/mL (>8.6) 11/11/23 05:35 TSH 3rd Generation 0.473 uIU/mL (0.358-3.74) 11/09/23 08:08 Specimen Type Catherized urine 11/09/23 08:35 Urine Color Yellow (YELLOW) 11/09/23 08:35 Urine Appearance Clear (CLEAR) 11/09/23 08:35 Urine pH 6.5 (5.0 - 8.0) 11/09/23 08:35 Ur Specific [place] 1.010 (1.000-1.030) 11/09/23 08:35 Urine Protein 2+ (NEGATIVE) 11/09/23 08:35 Urine Glucose (UA) Negative (NEGATIVE) 11/09/23 08:35 Urine Ketones Negative (NEGATIVE) 11/09/23 08:35 Urine Blood Negative (NEGATIVE) 11/09/23 08:35 Urine Nitrite Negative (NEGATIVE) 11/09/23 08:35 Urine Bilirubin Negative (NEGATIVE) 11/09/23 08:35 Urine Urobilinogen Normal (NORMAL) 11/09/23 08:35 Ur Leukocyte Esterase Negative (NEGATIVE) 11/09/23 08:35 Urine RBC None seen /HPF (0-3) 11/09/23 08:35 Urine WBC None seen /HPF (0-5) 11/09/23 08:35 Ur Squamous Epith Cells Few /HPF (NEGATIVE) 11/09/23 08:35 Amorphous Sediment Trace /HPF (NEGATIVE) 11/09/23 08:35 Urine Bacteria Negative /HPF (NEGATIVE) 11/09/23 08:35 Ur Culture Indicated? No/not indicated 11/09/23 08:35 Stl Occult Blood (IFOB) Negative (NEGATIVE) 11/11/23 18:55 Plan (1) Pancreatitis: Status: Acute Qualifiers: Chronicity: acute Pancreatitis type: unspecified pancreatitis type Acute pancreatitis complication: no infection or necrosis Qualified Code(s): K85.90 - Acute pancreatitis without necrosis or infection, unspecified (2) Gastritis: Status: Acute Qualifiers: Gastritis type: unspecified gastritis Chronicity: unspecified Gastritis bleeding: without bleeding Qualified Code(s): K29.70 - Gastritis, unspecified, without bleeding (3) Nvdym-ey-oanyipo kidney injury: Status: Acute Qualifiers: Acute renal failure type: unspecified Chronic kidney disease stage: unspecified stage Qualified Code(s): N17.9 - Acute kidney failure, unspecified; N18.9 - Chronic kidney disease, unspecified (4) UTI (urinary tract infection): Status: Acute Qualifiers: Urinary tract infection type: acute cystitis Hematuria presence: without hematuria Qualified Code(s): N30.00 - Acute cystitis without hematuria (5) Fall: Status: Acute Qualifiers: Encounter type: subsequent encounter Qualified Code(s): W19.XXXD - Unspecified fall, subsequent encounter (6) GERD (gastroesophageal reflux disease): Status: Chronic Qualifiers: Esophagitis presence: without esophagitis Qualified Code(s): K21.9 - Gastro-esophageal reflux disease without esophagitis (7) Hypertension: Status: Chronic Qualifiers: Hypertension type: primary hypertension Qualified Code(s): I10 - [place] t[place] (primary) hypertension (8) Hyperthyroidism: Status: Chronic (9) CHF (congestive heart failure): Status: Acute Qualifiers: Heart failure type: unspecified Heart failure chronicity: unspecified Qualified Code(s): I50.9 - Heart failure, unspecified (10) Hypomagnesemia: Status: Acute
[2023-11-13] MEDS: CARAFATE PO SCH (15:57)
[2023-11-14 04:53] LABS: BASOPHILS # (AUTO) 0.1 X10^3/uL (0.0-0.1); BASOPHILS % (AUTO) 1.5 % (0.2-1.0); EOSINOPHILS # (AUTO) 0.5 x10^3/uL (0.0-0.2); EOSINOPHILS % (AUTO) 9.5 % (0.9-2.9); HEMATOCRIT 24.3 % (36.0-47.0); HEMOGLOBIN 8.2 g/dL (12.0-16.0); LYMPHOCYTES # (AUTO) 1.1 X10^3/uL (1.3-2.9); LYMPHOCYTES % (AUTO) 18.8 % (21.0-51.0); MEAN CORPUSCULAR HEMOGLOBIN 28.4 pg (27.0-34.0); MEAN CORPUSCULAR HGB CONC 33.9 g/dL (33.0-35.0); MEAN CORPUSCULAR VOLUME 83.7 fL (80.0-100.0); MEAN PLATELET VOLUME 10.4 fL (7.4-11.0); MONOCYTES # (AUTO) 0.9 x10^3/uL (0.3-0.8); MONOCYTES % (AUTO) 16.5 % (0.0-13.0); NEUTROPHILS # (AUTO) 3.1 x10^3/uL (2.2-4.8); NEUTROPHILS % (AUTO) 53.7 % (42.0-75.0); PLATELET COUNT 169 X10^3/uL (150.0-450.0); WHITE BLOOD COUNT 5.7 X10^3/uL (3.6-10.0)
[2023-11-14 05:02] LABS: ALANINE AMINOTRANSFERASE 7 Units/L (12-78); ALBUMIN 2.2 g/dL (3.4-5.0); ALKALINE PHOSPHATASE 53 Units/L (46-116); ASPARTATE AMINO TRANSFERASE 11 Units/L (15-37); BLOOD UREA NITROGEN 30 mg/dL (7-18); CALCIUM 8.7 mg/dL (8.5-10.1); CARBON DIOXIDE 26.6 mmol/L (21-32); CHLORIDE 110 mmol/L (98-107); COR CA(FOR HYPOALB) 10.1 mg/dL (8.5-10.1); CREATININE 1.65 mg/dL (0.55-1.02); GLUCOSE 84 mg/dL (65-99); MAGNESIUM 1.9 mg/dL (2.0-2.9); POTASSIUM 3.8 mmol/L (3.5-5.1); SODIUM 145 mmol/L (136-145); TOTAL PROTEIN 5.7 g/dL (6.4-8.2); eGFR NON BLACK RACES 32 (>60)
[2023-11-14] MEDS ORDERED: CONSULT PHARMACY - POTASSIUM & MAGNESIUM XX SCH (07:00)
[2023-11-14] MEDS: CATAPRES TAB 0.1 MG PO ONE (09:38)
[2023-11-14] MEDS: MAG-OX TAB PO SCH (09:45)
[2023-11-14] MEDS: MICRO K EXTEN CAP 10 MEQ PO SCH (09:49)
[2023-11-14] MEDS: APRESOLINE INJ 20 MG VIAL IVP ONE (11:31)
[2023-11-14] MEDS: VIBRAMYCIN PO SCH (12:14)
--- NOTE | 2023-11-14 12:16 | PCM.PROG ---
Progress Note Progress Note for Day of Date of Exam: 11/14/23 Subjective Subjective: 72 year old female who is an ER admission after presenting via EMS for severe low back pain. ER workup revealed [id number] kidney injury, Generalized weakness. Upon admission, we treated the patient with IV hydration, IV abx, resumed home medications and obtained UC, BC. CT abdomen and pelvis showed Pancreatitis with likely reactive gastritis/duodenitis, levoscoliosis of the lumbar spine. Patient did report taking a fall at home last week and hit her face on sink, so we obtained a ct facial bones that showed Mild edema in the subcutaneous region of the left cheek, could be ecchymosis, cellulitis, or mild serous fluid. UC positive for Staph Hemolyticus. Blood cultures negative. AM labs: hgb 8.2, wbc 5.7, bun 30/creatinine 1.65. Morning vitals: 170/77-80-18-98.0-96% on 2 L NC. Patient states that she is feeling much better and is ambulating around room without difficulty. She denies nausea, vomiting, diarrhea. We will plan to consult pharmacy for PO abx recommendations with plans to allow patient to discharge home tomorrow. Past Medical Family Social History Allergies: Allergies No Known Drug Allergies Allergy (Verified 09/13/23 14:18) Vital Signs and I&O's Vital Signs: Vital Signs Temperature 98 F Pulse Rate [Left Brachial] 80 Respiratory Rate 18 Blood Pressure [Right Arm] 170/77 O2 Sat by Pulse Oximetry 96 Intake and Output: Intake & Output 11/11/23 11/12/23 11/13/23 11/14/23 11:59 11:59 11:59 11:59 Intake Total 2520 / 2520 3006 / 3006 3068 / 3068 3257 / 3257 Output Total 1700 / 1700 1280 / 1280 1020 / 1020 Balance 2520 / 2520 1306 / 1306 1788 / 1788 2237 / 2237 Physical Exam Oriented: Person Eyes: Normal Nose: Normal Throat: Normal Respiratory: Generalized and Diminished Cardiovascular: Normal and Murmur : Dysuria Auscultation: Bowel Sounds: Normal Tenderness: Normal Skin: Decreased Turgur and Bruising Musculoskeletal: Back:Lumbar, Deformity, Motor Deficit and Sensory Deficit Psychiatric: Depression Mood Description: Calm Affect: Depressed Speech Pattern: Clear and Appropriate Laboratory and Diagnostics 11/14/23 04:30 11/14/23 04:30 Labs: 11/10/23 09:05 Blood Blood Culture - Preliminary 11/10/23 08:57 Blood Blood Culture - Preliminary 11/10/23 13:05 Urine,Clean Catch Urine Culture - Final Staphylococcus Haemolyticus Laboratory WBC 5.7 X10^3/uL (3.6-10.0) 11/14/23 04:30 RBC 2.90 X10^6/uL (3.5-5.4) L 11/14/23 04:30 Hgb 8.2 g/dL (12.0-16.0) L 11/14/23 04:30 Hct 24.3 % (36.0-47.0) L 11/14/23 04:30 MCV 83.7 fL (80.0-100.0) 11/14/23 04:30 MCH 28.4 pg (27.0-34.0) 11/14/23 04:30 MCHC 33.9 g/dL (33.0-35.0) 11/14/23 04:30 RDW 14.0 % (11.6-16.5) 11/14/23 04:30 Plt Count 169 X10^3/uL (150.0-450.0) 11/14/23 04:30 MPV 10.4 fL (7.4-11.0) 11/14/23 04:30 Neut % (Auto) 53.7 % (42.0-75.0) 11/14/23 04:30 Lymph % (Auto) 18.8 % (21.0-51.0) L 11/14/23 04:30 [place] % (Auto) 16.5 % (0.0-13.0) H 11/14/23 04:30 Eos % (Auto) 9.5 % (0.9-2.9) H 11/14/23 04:30 Baso % (Auto) 1.5 % (0.2-1.0) H 11/14/23 04:30 Neut # (Auto) 3.1 x10^3/uL (2.2-4.8) 11/14/23 04:30 Lymph # (Auto) 1.1 X10^3/uL (1.3-2.9) L 11/14/23 04:30 [place] # (Auto) 0.9 x10^3/uL (0.3-0.8) H 11/14/23 04:30 Eos # (Auto) 0.5 x10^3/uL (0.0-0.2) H 11/14/23 04:30 Baso # (Auto) 0.1 X10^3/uL (0.0-0.1) 11/14/23 04:30 Absolute Nucleated RBC 0.0 /100WBC 11/14/23 04:30 Absolute Retic 0.0377 10^6/uL 11/11/23 05:35 Percent Retic 1.44 % (0.8-2.2) 11/11/23 05:35 Sodium 145 mmol/L (136-145) 11/14/23 04:30 Corrected Sodium TNP 11/14/23 04:30 Potassium 3.8 mmol/L (3.5-5.1) 11/14/23 04:30 Chloride 110 mmol/L (98-107) H 11/14/23 04:30 Carbon Dioxide 26.6 mmol/L (21-32) 11/14/23 04:30 BUN 30 mg/dL (7-18) H 11/14/23 04:30 Creatinine 1.65 mg/dL (0.55-1.02) H 11/14/23 04:30 Est GFR (MDRD) Af Amer 39 (>60) L 11/14/23 04:30 Est GFR (MDRD) Non-Af 32 (>60) L 11/14/23 04:30 Glucose 84 mg/dL (65-99) 11/14/23 04:30 POC Glucose (mg/dL) 98 mg/dL (65-99) 11/09/23 12:33 Calcium 8.7 mg/dL (8.5-10.1) 11/14/23 04:30 Corrected Calcium 10.1 mg/dL (8.5-10.1) 11/14/23 04:30 Magnesium 1.9 mg/dL (2.0-2.9) L 11/14/23 04:30 Iron 8 ug/dL (50-175) L 11/11/23 05:35 TIBC 194 ug/dL (250-450) L 11/11/23 05:35 Transferrin 145 mg/dL (202-364) L 11/11/23 05:35 Ferritin 176 ng/mL (8-252) 11/11/23 05:35 Total Bilirubin 0.50 mg/dL (0.2-1.0) 11/14/23 04:30 AST 11 Units/L (15-37) L 11/14/23 04:30 ALT 7 Units/L (12-78) L 11/14/23 04:30 Alkaline Phosphatase 53 Units/L (46-116) 11/14/23 04:30 Creatine Kinase 47 Units/L (26-192) 11/10/23 09:05 Troponin I High Sens 8.7 ng/L (4.0-60.0) 11/10/23 09:05 B-Natriuretic Peptide 73.5 pg/mL (0-79) 11/10/23 09:05 Total Protein 5.7 g/dL (6.4-8.2) L 11/14/23 04:30 Albumin 2.2 g/dL (3.4-5.0) L 11/14/23 04:30 Globulin 3.5 g/dL (2.5-4.5) 11/14/23 04:30 Albumin/Globulin Ratio 0.6 Ratio (1.1-2.1) L 11/14/23 04:30 Vitamin B12 498 pg/mL (193-986) 11/11/23 05:35 Folate 11.8 ng/mL (>8.6) 11/11/23 05:35 TSH 3rd Generation 0.473 uIU/mL (0.358-3.74) 11/09/23 08:08 Specimen Type Catherized urine 11/09/23 08:35 Urine Color Yellow (YELLOW) 11/09/23 08:35 Urine Appearance Clear (CLEAR) 11/09/23 08:35 Urine pH 6.5 (5.0 - 8.0) 11/09/23 08:35 Ur Specific [place] 1.010 (1.000-1.030) 11/09/23 08:35 Urine Protein 2+ (NEGATIVE) 11/09/23 08:35 Urine Glucose (UA) Negative (NEGATIVE) 11/09/23 08:35 Urine Ketones Negative (NEGATIVE) 11/09/23 08:35 Urine Blood Negative (NEGATIVE) 11/09/23 08:35 Urine Nitrite Negative (NEGATIVE) 11/09/23 08:35 Urine Bilirubin Negative (NEGATIVE) 11/09/23 08:35 Urine Urobilinogen Normal (NORMAL) 11/09/23 08:35 Ur Leukocyte Esterase Negative (NEGATIVE) 11/09/23 08:35 Urine RBC None seen /HPF (0-3) 11/09/23 08:35 Urine WBC None seen /HPF (0-5) 11/09/23 08:35 Ur Squamous Epith Cells Few /HPF (NEGATIVE) 11/09/23 08:35 Amorphous Sediment Trace /HPF (NEGATIVE) 11/09/23 08:35 Urine Bacteria Negative /HPF (NEGATIVE) 11/09/23 08:35 Ur Culture Indicated? No/not indicated 11/09/23 08:35 Stl Occult Blood (IFOB) Negative (NEGATIVE) 11/11/23 18:55 Plan (1) Pancreatitis: Status: Acute Qualifiers: Acute pancreatitis complication: no infection or necrosis Chronicity: acute Pancreatitis type: unspecified pancreatitis type Qualified Code(s): K85.90 - Acute pancreatitis without necrosis or infection, unspecified Plan: Pharmacy consult for abx therapy. Continue IV hydration, IV abx, supplemental 02 prn, ppi, carafate, home medications. (2) Gastritis: Status: Acute Qualifiers: Chronicity: unspecified Gastritis bleeding: without bleeding Gastritis type: unspecified gastritis Qualified Code(s): K29.70 - Gastritis, unspecified, without bleeding (3) Ysvnq-gp-xxkuele kidney injury: Status: Acute Qualifiers: Acute renal failure type: unspecified Chronic kidney disease stage: unspecified stage Qualified Code(s): N17.9 - Acute kidney failure, unspecified; N18.9 - Chronic kidney disease, unspecified (4) UTI (urinary tract infection): Status: Acute Qualifiers: Hematuria presence: without hematuria Urinary tract infection type: acute cystitis Qualified Code(s): N30.00 - Acute cystitis without hematuria (5) Fall: Status: Acute Qualifiers: Encounter type: subsequent encounter Qualified Code(s): W19.XXXD - Unspecified fall, subsequent encounter (6) GERD (gastroesophageal reflux disease): Status: Chronic Qualifiers: Esophagitis presence: without esophagitis Qualified Code(s): K21.9 - Gastro-esophageal reflux disease without esophagitis (7) Hypertension: Status: Chronic Qualifiers: Hypertension type: primary hypertension Qualified Code(s): I10 - Essential (primary) hypertension (8) Hyperthyroidism: Status: Chronic (9) CHF (congestive heart failure): Status: Acute Qualifiers: Heart failure chronicity: unspecified Heart failure type: unspecified Qualified Code(s): I50.9 - Heart failure, unspecified (10) Hypomagnesemia: Status: Acute
[2023-11-14] MEDS ORDERED: ZANAFLEX PO PRN (13:09)
[2023-11-14] MEDS: LYRICA CAP 150 mg PO SCH (13:39)
--- NOTE | 2023-11-14 23:28 | RAD ---
EXAM: FOOT, LEFT HISTORY: swollen painful big toe; COMPARISON: None available TECHNIQUE: Left foot radiographs, 3 views, AP, oblique and lateral projections FINDINGS: No fracture or dislocations. Normal joint spaces. Soft tissues are unremarkable. Plantar calcaneal spur. IMPRESSION: No acute osseous abnormality. THIS IS AN ELECTRONICALLY VERIFIED FINAL REPORT 11/14/2023 11:25 PM - Electronically signed by Luiz Olivas MD
[2023-11-15 04:50] LABS: BASOPHILS # (AUTO) 0.1 X10^3/uL (0.0-0.1); BASOPHILS % (AUTO) 1.1 % (0.2-1.0); EOSINOPHILS # (AUTO) 0.5 x10^3/uL (0.0-0.2); EOSINOPHILS % (AUTO) 9.6 % (0.9-2.9); HEMATOCRIT 22.2 % (36.0-47.0); HEMOGLOBIN 7.4 g/dL (12.0-16.0); LYMPHOCYTES # (AUTO) 1.2 X10^3/uL (1.3-2.9); LYMPHOCYTES % (AUTO) 22.8 % (21.0-51.0); MEAN CORPUSCULAR HEMOGLOBIN 28.1 pg (27.0-34.0); MEAN CORPUSCULAR HGB CONC 33.3 g/dL (33.0-35.0); MEAN CORPUSCULAR VOLUME 84.3 fL (80.0-100.0); MEAN PLATELET VOLUME 10.3 fL (7.4-11.0); MONOCYTES # (AUTO) 0.9 x10^3/uL (0.3-0.8); MONOCYTES % (AUTO) 17.7 % (0.0-13.0); NEUTROPHILS # (AUTO) 2.6 x10^3/uL (2.2-4.8); NEUTROPHILS % (AUTO) 48.8 % (42.0-75.0); PLATELET COUNT 164 X10^3/uL (150.0-450.0); RED BLOOD COUNT 2.64 X10^6/uL (3.5-5.4); WHITE BLOOD COUNT 5.3 X10^3/uL (3.6-10.0)
[2023-11-15 04:55] LABS: BLOOD UREA NITROGEN 24 mg/dL (7-18); CALCIUM 8.6 mg/dL (8.5-10.1); CARBON DIOXIDE 26.5 mmol/L (21-32); CHLORIDE 110 mmol/L (98-107); CREATININE 1.71 mg/dL (0.55-1.02); GLUCOSE 93 mg/dL (65-99); POTASSIUM 3.8 mmol/L (3.5-5.1); SODIUM 144 mmol/L (136-145); eGFR NON BLACK RACES 31 (>60)
[2023-11-15 05:14] LABS: ALANINE AMINOTRANSFERASE 7 Units/L (12-78); ALKALINE PHOSPHATASE 47 Units/L (46-116); ASPARTATE AMINO TRANSFERASE 9 Units/L (15-37); COR CA(FOR HYPOALB) 10.2 mg/dL (8.5-10.1); MAGNESIUM 1.9 mg/dL (2.0-2.9); TOTAL PROTEIN 5.3 g/dL (6.4-8.2)
[2023-11-15] MEDS ORDERED: CONSULT PHARMACY - POTASSIUM & MAGNESIUM XX SCH (07:00)
[2023-11-15] MEDS: MICRO K EXTEN CAP 10 MEQ PO SCH (08:33)
[2023-11-15] MEDS: MAG-OX TAB PO ONE (08:34)
[2023-11-15] MEDS ORDERED: ZYLOPRIM PO SCH (09:00)
[2023-11-15] MEDS ORDERED: K-DUR TAB 20 MEQ PO SCH (09:00)
[2023-11-15] MEDS: ZYLOPRIM PO SCH (09:52)
[2023-11-15] MEDS: SOLU-Medrol 40 MG VIAL IVP ONE (10:14)
[2023-11-15 12:24] LABS: CREATININE 1.75 mg/dL (0.55-1.02); VANCOMYCIN,TROUGH 15.3 ug/mL (15-20)
[2023-11-15] MEDS ORDERED: PHARMACY COMMENT IV SCH (12:30)
[2023-11-15] MEDS: APRESOLINE INJ 20 MG VIAL IVP ONE (12:43)
[2023-11-15] MEDS: DEMADEX PO SCH (12:44)
[2023-11-15] MEDS: NORVASC TAB 5 MG PO ONE (13:38)
[2023-11-15 15:02] VITALS: PULSE 68; RESP 18; TEMP 97.6; O2SAT 97
[2023-11-15] MEDS: CATAPRES TAB 0.1 MG PO ONE (15:06)
--- NOTE | 2023-11-15 16:13 | PCM.DCPLAN ---
DISCHARGE SUMMARY Admission Date Date of Admission: 12/09/22 Discharge Date Discharge Date: 11/15/23 Admission Diagnoses (1) Pancreatitis: Status: Acute (2) Gastritis: Status: Acute (3) Zanki-br-cjzlxex kidney injury: Status: Acute (4) UTI (urinary tract infection): Status: Acute (5) Fall: Status: Acute (6) GERD (gastroesophageal reflux disease): Status: Chronic (7) Hypertension: Status: Chronic (8) Hyperthyroidism: Status: Chronic (9) CHF (congestive heart failure): Status: Acute (10) Hypomagnesemia: Status: Acute Discharge Diagnoses Discharge Diagnosis: UTI, Hypertension, CHF, CRF, Spinal degenerative joint disease Discharge Medications Discharge Medications: Home Medication List carvedilol 6.25 mg tablet 6.25 mg PO BID 11/09/23 [History] ibandronate 150 mg tablet 150 mg PO QMONTH 11/09/23 [History] doxycycline hyclate 100 mg capsule 100 mg PO BID 10 days #20 caps 11/15/23 [Rx] Prescriptions: doxycycline hyclate [facility] Course Vital Signs: Vital Signs Temperature 97.6 F Temperature 97.9 F Pulse Rate [Left Brachial] 68 Pulse Rate [Left Brachial] 69 Respiratory Rate 18 Respiratory Rate 20 Blood Pressure [Right Arm] 182/79 Blood Pressure [Right Arm] 173/78 O2 Sat by Pulse Oximetry 97 O2 Sat by Pulse Oximetry 98 Latest Lab Results: Laboratory Last Values WBC 5.3 X10^3/uL (3.6-10.0) 11/15/23 04:20 RBC 2.64 X10^6/uL (3.5-5.4) L 11/15/23 04:20 Hgb 7.4 g/dL (12.0-16.0) L 11/15/23 04:20 Hct 22.2 % (36.0-47.0) L 11/15/23 04:20 MCV 84.3 fL (80.0-100.0) 11/15/23 04:20 MCH 28.1 pg (27.0-34.0) 11/15/23 04:20 MCHC 33.3 g/dL (33.0-35.0) 11/15/23 04:20 RDW 14.0 % (11.6-16.5) 11/15/23 04:20 Plt Count 164 X10^3/uL (150.0-450.0) 11/15/23 04:20 MPV 10.3 fL (7.4-11.0) 11/15/23 04:20 Neut % (Auto) 48.8 % (42.0-75.0) 11/15/23 04:20 Lymph % (Auto) 22.8 % (21.0-51.0) 11/15/23 04:20 [place] % (Auto) 17.7 % (0.0-13.0) H 11/15/23 04:20 Eos % (Auto) 9.6 % (0.9-2.9) H 11/15/23 04:20 Baso % (Auto) 1.1 % (0.2-1.0) H 11/15/23 04:20 Neut # (Auto) 2.6 x10^3/uL (2.2-4.8) 11/15/23 04:20 Lymph # (Auto) 1.2 X10^3/uL (1.3-2.9) L 11/15/23 04:20 [place] # (Auto) 0.9 x10^3/uL (0.3-0.8) H 11/15/23 04:20 Eos # (Auto) 0.5 x10^3/uL (0.0-0.2) H 11/15/23 04:20 Baso # (Auto) 0.1 X10^3/uL (0.0-0.1) 11/15/23 04:20 Absolute Nucleated RBC 0.0 /100WBC 11/15/23 04:20 Absolute Retic 0.0377 10^6/uL 11/11/23 05:35 Percent Retic 1.44 % (0.8-2.2) 11/11/23 05:35 Sodium 144 mmol/L (136-145) 11/15/23 04:20 Corrected Sodium TNP 11/15/23 04:20 Potassium 3.8 mmol/L (3.5-5.1) 11/15/23 04:20 Chloride 110 mmol/L (98-107) H 11/15/23 04:20 Carbon Dioxide 26.5 mmol/L (21-32) 11/15/23 04:20 BUN 24 mg/dL (7-18) H 11/15/23 04:20 Creatinine 1.75 mg/dL (0.55-1.02) H 11/15/23 12:00 Est GFR (MDRD) Af Amer 38 (>60) L 11/15/23 04:20 Est GFR (MDRD) Non-Af 31 (>60) L 11/15/23 04:20 Glucose 93 mg/dL (65-99) 11/15/23 04:20 POC Glucose (mg/dL) 98 mg/dL (65-99) 11/09/23 12:33 Uric Acid 7.8 mg/dL (2.6-6.0) H 11/15/23 04:20 Calcium 8.6 mg/dL (8.5-10.1) 11/15/23 04:20 Corrected Calcium 10.2 mg/dL (8.5-10.1) H 11/15/23 04:20 Magnesium 1.9 mg/dL (2.0-2.9) L 11/15/23 04:20 Iron 8 ug/dL (50-175) L 11/11/23 05:35 TIBC 194 ug/dL (250-450) L 11/11/23 05:35 Transferrin 145 mg/dL (202-364) L 11/11/23 05:35 Ferritin 176 ng/mL (8-252) 11/11/23 05:35 Total Bilirubin 0.30 mg/dL (0.2-1.0) 11/15/23 04:20 AST 9 Units/L (15-37) L 11/15/23 04:20 ALT 7 Units/L (12-78) L 11/15/23 04:20 Alkaline Phosphatase 47 Units/L (46-116) 11/15/23 04:20 Creatine Kinase 47 Units/L (26-192) 11/10/23 09:05 Troponin I High Sens 8.7 ng/L (4.0-60.0) 11/10/23 09:05 B-Natriuretic Peptide 73.5 pg/mL (0-79) 11/10/23 09:05 Total Protein 5.3 g/dL (6.4-8.2) L 11/15/23 04:20 Albumin 2.0 g/dL (3.4-5.0) L 11/15/23 04:20 Globulin 3.3 g/dL (2.5-4.5) 11/15/23 04:20 Albumin/Globulin Ratio 0.6 Ratio (1.1-2.1) L 11/15/23 04:20 Vitamin B12 498 pg/mL (193-986) 11/11/23 05:35 Folate 11.8 ng/mL (>8.6) 11/11/23 05:35 TSH 3rd Generation 0.473 uIU/mL (0.358-3.74) 11/09/23 08:08 Specimen Type Catherized urine 11/09/23 08:35 Urine Color Yellow (YELLOW) 11/09/23 08:35 Urine Appearance Clear (CLEAR) 11/09/23 08:35 Urine pH 6.5 (5.0 - 8.0) 11/09/23 08:35 Ur Specific [place] 1.010 (1.000-1.030) 11/09/23 08:35 Urine Protein 2+ (NEGATIVE) 11/09/23 08:35 Urine Glucose (UA) Negative (NEGATIVE) 11/09/23 08:35 Urine Ketones Negative (NEGATIVE) 11/09/23 08:35 Urine Blood Negative (NEGATIVE) 11/09/23 08:35 Urine Nitrite Negative (NEGATIVE) 11/09/23 08:35 Urine Bilirubin Negative (NEGATIVE) 11/09/23 08:35 Urine Urobilinogen Normal (NORMAL) 11/09/23 08:35 Ur Leukocyte Esterase Negative (NEGATIVE) 11/09/23 08:35 Urine RBC None seen /HPF (0-3) 11/09/23 08:35 Urine WBC None seen /HPF (0-5) 11/09/23 08:35 Ur Squamous Epith Cells Few /HPF (NEGATIVE) 11/09/23 08:35 Amorphous Sediment Trace /HPF (NEGATIVE) 11/09/23 08:35 Urine Bacteria Negative /HPF (NEGATIVE) 11/09/23 08:35 Ur Culture Indicated? No/not indicated 11/09/23 08:35 Stl Occult Blood (IFOB) Negative (NEGATIVE) 11/11/23 18:55 Vancomycin Trough 15.3 ug/mL (15-20) 11/15/23 12:00 Hospital Course: 72 year old female who is an ER admission after presenting via EMS for severe low back pain. ER workup revealed [id number] kidney injury, Generalized weakness. Upon admission, we treated the patient with IV hydration, IV abx, resu med home medications and obtained UC, BC. CT abdomen and pelvis showed Pancreatitis with likely reactive gastritis/duodenitis, levoscoliosis of the lumbar spine. Patient has good PO intake, denies nausea, vomiting, diarrhea. Patient did report taking a fall at home last week and hit her face on sink, so we obtained a ct facial bones that showed Mild edema in the subcutaneous region of the left cheek, could be ecchymosis, cellulitis, or mild serous fluid. UC positive for Staph Hemolyticus. Blood cultures negative. We treated the patient with a dose of solumedrol this morning and had side effects of elevated blood pressure. She denied chest pain, sob, dizziness. We treated the patient with hydralazine, clonidine per hypertensive protocol and started her on norvasc 5mg daily. AM labs: hgb 7.4, wbc 5.3, bun 24/creatinine 1.75. Morning vitals: 182/[id number]%. Patient states that she is feeling much better and is ambulating around room without difficulty. We will allow the patient to discharge home on po abx and home health services. She will need to follow up with her primary care provider and has an appointment scheduled for on 11/23/23 at 9:15AM.Please see discharge plan for list of discharge medications and modifications that we made, electronic medical record for diagnostic test and labs. The patient was instructed to return to the ER if condition changed or worsened unexpectedly.
[2023-11-15 16:35] VITALS: BP 148/62
[2023-11-15] MEDS ORDERED: HEMOCYTE-PLUS ONE (16:35)
[2023-11-15] MEDS: HEMOCYTE-PLUS PO SCH (16:38)
[2023-11-15 17:28] LABS: AMYLASE 43 Units/L (25-115); LIPASE 96 Units/L (16-77)
== END 2023-11-15 15:45 | disposition home health service (06) | DRG 439 ==
LOC: MED/SURG 07:17 → ER 07:17 → MED/SURG 11:50
PROVIDERS: ADMIT Obstetrics & Gynecology Obstetrics; ATTEND Internal Medicine
DX: R53.1 Weakness; N17.8 Other acute kidney failure; K85.90 Acute pancreatitis without necrosis or infection, unspecified; B95.7 Other staphylococcus as the cause of diseases classified elsewhere; I13.0 Hypertensive heart and chronic kidney disease with heart failure and stage 1 through stage 4 chronic kidney disease, or unspecified chronic kidney disease; E83.42 Hypomagnesemia; K21.9 Gastro-esophageal reflux disease without esophagitis; K29.00 Acute gastritis without bleeding; E05.90 Thyrotoxicosis, unspecified without thyrotoxic crisis or storm; W18.39XA Other fall on same level, initial encounter; R29.6 Repeated falls; R50.9 Fever, unspecified; K52.89 Other specified noninfective gastroenteritis and colitis; I50.9 Heart failure, unspecified; N30.00 Acute cystitis without hematuria; M54.59 Other low back pain; N18.9 Chronic kidney disease, unspecified

== ENCOUNTER 2024-04-12 13:57 | Observation (INO) ==
[2024-04-12] MEDS: CATAPRES TAB 0.1 MG PO ONE ×2 (14:22→15:15)
--- NOTE | 2024-04-12 14:32 | DR.HTN ---
HPI Time Seen Time Seen by Provider: 04/12/24 14:31 Primary Care Physician Primary Care Physician: walter lopez Complaints Chief Complaint Doctors Comments: Patient presents with elevated bp and L abdl/back / hip pain. Patient has had the pain for 2 days. Patient has had a decreased appetite,headache, and nausea. Patient has a h/o Colitis. Patient states that she has been taking her bp meds every day. Patient denies:fever,hematemesis,hematochezia,weakness,chest pain. Chief Complaint:: Patient states for the past 2 days she has had a decrease in appetite and increase in her bp states when her bp goes up she starts getting a headache along with nauseous. along with left hip pain denies any injuries. COVID-19 Coronavirus risk:travel/contact w/high risk person: No Has patient experienced Coronavirus symptoms: No Source History Provided: Patient Mode of Arrival Mode of Arrival: Wheelchair Timing Onset of Chief Complaint: 04/10/24 PMH PMH Past Medical History: Yes Past Medical History: Hypertension Past Medical History Comment: pinch nerve in lower back (pain stimulator in plac e) Past Surgical History: Yes Surgical History: Appendectomy, Cholecystectomy, Hysterectomy, Joint Replacement and Ortho Surgery Past Surgical History Comment: back Family History History of Family Medical Conditions: Yes Family Medical History: Cancer, ND and Hypertension Social History Does patient currently use any type of tobacco product: No Have you used tobacco products in the last 12 months: No Type of Tobacco Use: None Does any household member use tobacco: No Alcohol Use: None Do you use any recreational Drugs:: No Lives With: Family Lives Where: Home Travel Risk Coronavirus risk:travel/contact w/high risk person: No Has patient experienced Coronavirus symptoms: No Infectious screening In the last 2 months have you had wt loss of >10#?: NO Have you had fever, night sweats or hemotysis?: No Have you traveled outside the country in the last 6 months?: No Isolation: Standard ROS Review of Systems Constitutional: No Symptoms Reported Eyes: No Symptoms Reported ENTM: No Symptoms Reported Respiratoy: No Symptoms Reported Cardiovascular: No Symptoms Reported Gastrointestinal/Abdominal: Abdominal Pain (LUQ/LLQ/L flank), Nausea and Food Intolerance (decreased appetite in the past 2 days); negative Vomiting Genitourinary: No Symptoms Reported Neurological: No Symptoms Reported Musculoskeletal: No Symptoms Reported Integumentary: No Symptoms Reported Hematologic/Lymphatic: No Symptoms Reported Endocrine: No Symptoms Reported Psychiatric: No Symptoms Reported All Other Systems: Reviewed and Negative PE Vital Signs Vitals: Vital Signs Pulse Rate 74 Pulse Rate 75 Pulse Rate 76 Pulse Rate 77 Pulse Rate 75 Pulse Rate 75 Pulse Rate 76 Pulse Rate 75 Pulse Rate 76 Pulse Rate 78 Pulse Rate 75 Pulse Rate 76 Pulse Rate 78 Pulse Rate 76 Pulse Rate 77 Pulse Rate 79 Pulse Rate 77 Pulse Rate 76 Pulse Rate 75 Pulse Rate 74 Pulse Rate 75 Pulse Rate 76 Pulse Rate 75 Pulse Rate 74 Pulse Rate 74 Pulse Rate 75 Pulse Rate 83 Pulse Rate 75 Pulse Rate 79 Pulse Rate 84 Pulse Rate 80 Pulse Rate 79 Pulse Rate 78 Respiratory Rate 18 Respiratory Rate 18 Respiratory Rate 28 Respiratory Rate 28 Respiratory Rate 25 Respiratory Rate 30 Respiratory Rate 25 Respiratory Rate 35 Respiratory Rate 37 Respiratory Rate 31 Respiratory Rate 40 Respiratory Rate 31 Respiratory Rate 34 Respiratory Rate 28 Respiratory Rate 30 Respiratory Rate 31 Respiratory Rate 34 Respiratory Rate 30 Respiratory Rate 40 Respiratory Rate 20 Respiratory Rate 26 Respiratory Rate 19 Respiratory Rate 27 Respiratory Rate 23 Respiratory Rate 26 Respiratory Rate 52 Respiratory Rate 34 Respiratory Rate 36 Blood Pressure 166/70 Blood Pressure 173/73 Blood Pressure 174/77 Blood Pressure 184/79 Blood Pressure 164/73 Blood Pressure 182/77 Blood Pressure 198/80 Blood Pressure 197/79 Blood Pressure 206/88 Blood Pressure 195/79 Blood Pressure 203/84 Blood Pressure 225/94 Blood Pressure 196/80 Blood Pressure 191/79 Blood Pressure 171/75 Blood Pressure 170/73 Blood Pressure 160/69 Blood Pressure 172/72 Blood Pressure 160/70 Blood Pressure 185/83 Blood Pressure 209/83 Blood Pressure 204/81 O2 Sat by Pulse Oximetry 95 O2 Sat by Pulse Oximetry 95 O2 Sat by Pulse Oximetry 96 O2 Sat by Pulse Oximetry 96 O2 Sat by Pulse Oximetry 95 O2 Sat by Pulse Oximetry 95 O2 Sat by Pulse Oximetry 96 O2 Sat by Pulse Oximetry 95 O2 Sat by Pulse Oximetry 95 O2 Sat by Pulse Oximetry 95 O2 Sat by Pulse Oximetry 95 O2 Sat by Pulse Oximetry 96 O2 Sat by Pulse Oximetry 96 O2 Sat by Pulse Oximetry 96 O2 Sat by Pulse Oximetry 96 O2 Sat by Pulse Oximetry 95 O2 Sat by Pulse Oximetry 95 O2 Sat by Pulse Oximetry 95 O2 Sat by Pulse Oximetry 95 O2 Sat by Pulse Oximetry 94 O2 Sat by Pulse Oximetry 95 O2 Sat by Pulse Oximetry 95 O2 Sat by Pulse Oximetry 93 O2 Sat by Pulse Oximetry 94 O2 Sat by Pulse Oximetry 95 O2 Sat by Pulse Oximetry 95 O2 Sat by Pulse Oximetry 98 O2 Sat by Pulse Oximetry 98 O2 Sat by Pulse Oximetry 97 O2 Sat by Pulse Oximetry 98 O2 Sat by Pulse Oximetry 96 O2 Sat by Pulse Oximetry 96 O2 Sat by Pulse Oximetry 96 General Limitations: No Limitations General Appearance: Alert and In No Apparent Distress Head Head Exam: Normal Inspection Eyes Eye exam: Normal Appearance ENT ENT Exam: Normal Exam Neck Neck Exam: Normal Inspection Chest Chest Inspection: Normal Inspection Respiratory Respiratory Exam: Normal Lung Sounds Bilat Respiratory Exam: Bilateral: Clear to Auscultation Cardiovascular Cardiovascular Exam: Regular Rate and Normal Rhythm Abdominal Exam Abdominal Exam: Soft, Tenderness (LUQ/LLQ) and Hypoactive Bowel Sounds Abdominal Tenderness: LUQ and LLQ Extremities Extremities Exam: Normal Inspection Back Back Exam: Normal Inspection Neurologic Neurological Exam: Alert and Oriented X3 Psychiatric Psychiatric Exam: Normal Affect and Normal Mood Skin Skin Exam: Warm, Dry, Intact and Normal Color MDM Differential Diagnosis Differential Diagnosis Comment: DDx: obstr,Perf,inflam,ischemic bowel,inflam bowel disease COURSE Treatment Treatment: Patient was brought to an exam room. Iv access was initiated and patient was given NS 1L ivf. Patient's cbc stable,creatinine is elevated,D-dimer is elevated, Doppler U/S BLE neg for dvt, Patient's abd/plevis ct revealed transverse and descending colitis. Patient received morphine 2mg and zofran 4mg iv x 2 doses,toradol 30mg iv x 1 dose,flagyl 500mg iv x [address] Chisholm. Patient was accepted by Dr Chisholm to [facility]. [facility] Labs Reviewed Laboratory Results Reviewed?: Yes 04/12/24 14:10 04/12/24 17:57 Laboratory: WBC 10.2 X10^3/uL (3.6-10.0) H 04/12/24 14:10 RBC 3.40 X10^6/uL (3.5-5.4) L 04/12/24 14:10 Hgb 10.3 g/dL (12.0-16.0) L 04/12/24 14:10 Hct 30.2 % (36.0-47.0) L 04/12/24 14:10 MCV 88.8 fL (80.0-100.0) 04/12/24 14:10 MCH 30.3 pg (27.0-34.0) 04/12/24 14:10 MCHC 34.1 g/dL (33.0-35.0) 04/12/24 14:10 RDW 14.3 % (11.6-16.5) 04/12/24 14:10 Plt Count 220 X10^3/uL (150.0-450.0) 04/12/24 14:10 MPV 11.0 fL (7.4-11.0) 04/12/24 14:10 Neut % (Auto) 74.6 % (42.0-75.0) 04/12/24 14:10 Lymph % (Auto) 15.4 % (21.0-51.0) L 04/12/24 14:10 [place] % (Auto) 8.1 % (0.0-13.0) 04/12/24 14:10 Eos % (Auto) 0.8 % (0.9-2.9) L 04/12/24 14:10 Baso % (Auto) 1.1 % (0.2-1.0) H 04/12/24 14:10 Neut # (Auto) 7.6 x10^3/uL (2.2-4.8) H 04/12/24 14:10 Lymph # (Auto) 1.6 X10^3/uL (1.3-2.9) 04/12/24 14:10 [place] # (Auto) 0.8 x10^3/uL (0.3-0.8) 04/12/24 14:10 Eos # (Auto) 0.1 x10^3/uL (0.0-0.2) 04/12/24 14:10 Baso # (Auto) 0.1 X10^3/uL (0.0-0.1) 04/12/24 14:10 Absolute Nucleated RBC 0.1 /100WBC 04/12/24 14:10 D-Dimer 1.01 ug/ml (0.0-0.57) H 04/12/24 14:10 Sodium 140 mmol/L (136-145) 04/12/24 17:57 Corrected Sodium TNP 04/12/24 17:57 Potassium 3.8 mmol/L (3.5-5.1) 04/12/24 17:57 Chloride 106 mmol/L (98-107) 04/12/24 17:57 Carbon Dioxide 26.7 mmol/L (21-32) 04/12/24 17:57 BUN 22 mg/dL (7-18) H 04/12/24 17:57 Creatinine 1.59 mg/dL (0.55-1.02) H 04/12/24 17:57 Est GFR (MDRD) Af Amer 41 (>60) L 04/12/24 17:57 Est GFR (MDRD) Non-Af 34 (>60) L 04/12/24 17:57 Glucose 94 mg/dL (65-99) 04/12/24 17:57 Calcium 8.7 mg/dL (8.5-10.1) 04/12/24 17:57 Corrected Calcium TNP 04/12/24 14:10 Total Bilirubin 0.70 mg/dL (0.2-1.0) 04/12/24 14:10 AST 16 Units/L (15-37) 04/12/24 14:10 ALT 19 Units/L (12-78) 04/12/24 14:10 Alkaline Phosphatase 52 Units/L (46-116) 04/12/24 14:10 Creatine Kinase 52 Units/L (26-192) 04/12/24 14:10 Troponin I High Sens 24.8 ng/L (4.0-60.0) 04/12/24 14:10 B-Natriuretic Peptide 178 pg/mL (0-79) H 04/12/24 14:10 Total Protein 6.7 g/dL (6.4-8.2) 04/12/24 14:10 Albumin 3.5 g/dL (3.4-5.0) 04/12/24 14:10 Globulin 3.2 g/dL (2.5-4.5) 04/12/24 14:10 Albumin/Globulin Ratio 1.1 Ratio (1.1-2.1) 04/12/24 14:10 Amylase 33 Units/L (25-115) 04/12/24 14:10 Lipase 62 Units/L (16-77) 04/12/24 14:10 Specimen Type Clean catch urine 04/12/24 15:54 Urine Color Yellow (YELLOW) 04/12/24 15:54 Urine Appearance Clear (CLEAR) 04/12/24 15:54 Urine pH 6.0 (5.0 - 8.0) 04/12/24 15:54 Ur Specific [place] 1.015 (1.000-1.030) 04/12/24 15:54 Urine Protein 1+ (NEGATIVE) 04/12/24 15:54 Urine Glucose (UA) Negative (NEGATIVE) 04/12/24 15:54 Urine Ketones Negative (NEGATIVE) 04/12/24 15:54 Urine Blood Negative (NEGATIVE) 04/12/24 15:54 Urine Nitrite Negative (NEGATIVE) 04/12/24 15:54 Urine Bilirubin Negative (NEGATIVE) 04/12/24 15:54 Urine Urobilinogen Normal (NORMAL) 04/12/24 15:54 Ur Leukocyte Esterase Negative (NEGATIVE) 04/12/24 15:54 Urine RBC 0-2 /HPF (0-3) 04/12/24 15:54 Urine WBC None seen /HPF (0-5) 04/12/24 15:54 Ur Squamous Epith Cells Few /HPF (NEGATIVE) 04/12/24 15:54 Urine Bacteria Trace /HPF (NEGATIVE) 04/12/24 15:54 Ur Culture Indicated? No/not indicated 04/12/24 15:54 Opioid Opioid Risk Tool Age (Broderick box if 16-45): No History of Preadolescent Sexual Abuse: No Total: 0 Total Score Risk Category: Low Risk Copyright: Jarod predicting aberrant behaviors Discharge Plan Diagnosis Discharge Problem: Colitis Discharge Plan Patient Disposition: 09 ADMITTED INPATIENT Condition: Stable Prescriptions: No Action tizanidine 4 mg tablet 6 mg PO QHS PRN potassium chloride 10 mEq tablet extended release 10 meq PO BID PRN Patient Comments: TAKE 1 TABLET BY MOUTH TWICE DAILY DIRECTED levothyroxine 75 mcg tablet 75 mcg PO QAM hydrocodone-acetaminophen 7.5-325 mg tablet 1 tab PO BID PRN Patient Comments: TAKE 1 TABLET BY MOUTH TWICE DAILY NEEDED duloxetine 60 mg capsule,delayed release(DR/EC) 60 mg PO QAM pregabalin 150 mg capsule 150 mg PO TID Patient Comments: TAKE 1 CAPSULE BY MOUTH THREE TIMES DAILY NEEDED torsemide 20 mg tablet 40 mg PO BID Patient Comments: TAKE 2 TABLETS BY MOUTH TWICE DAILY ergocalciferol (vitamin D2) 1,250 mcg (50,000 unit) capsule 1,250 mcg PO 2XW Linzess 72 mcg capsule 72 mcg PO QAM carvedilol 6.25 mg tablet 6.25 mg PO BID ibandronate 150 mg tablet 150 mg PO QMONTH ferrous sulfate 325 mg (65 mg iron) tablet 325 mg PO QDAY Qty: 30 0RF isosorbide mononitrate 30 mg tablet extended release 24 hr 30 mg PO QDAY amlodipine 2.5 mg tablet 2.5 mg PO QDAY hydralazine 100 mg tablet 100 mg PO BID Health Concerns: Post Hospitalization: new medications and changes needed to prevent readmission or further decline. Pt educated and given instructions on all concerns. Plan of Treatment: Continue with present treatment and follow up plan. Pt is to keep follow up appointment as instructed and take medications as ordered. Orders to Discharge Patient Discharge Orders: Transfer (Routine); Ordered 04/12/24 Ordered By: Sophy Medel Follow ups/Referrals Follow ups/Referrals: IRMA LOPEZ [Primary Care Provider] - 3 days Instructions Stand Alone Forms: Post Hospital Follow Up Care
[2024-04-12 15:38] LABS: BASOPHILS # (AUTO) 0.1 X10^3/uL (0.0-0.1); BASOPHILS % (AUTO) 1.1 % (0.2-1.0); EOSINOPHILS # (AUTO) 0.1 x10^3/uL (0.0-0.2); EOSINOPHILS % (AUTO) 0.8 % (0.9-2.9); HEMATOCRIT 30.2 % (36.0-47.0); HEMOGLOBIN 10.3 g/dL (12.0-16.0); LYMPHOCYTES # (AUTO) 1.6 X10^3/uL (1.3-2.9); LYMPHOCYTES % (AUTO) 15.4 % (21.0-51.0); MEAN CORPUSCULAR HEMOGLOBIN 30.3 pg (27.0-34.0); MEAN CORPUSCULAR HGB CONC 34.1 g/dL (33.0-35.0); MEAN CORPUSCULAR VOLUME 88.8 fL (80.0-100.0); MONOCYTES # (AUTO) 0.8 x10^3/uL (0.3-0.8); MONOCYTES % (AUTO) 8.1 % (0.0-13.0); NEUTROPHILS # (AUTO) 7.6 x10^3/uL (2.2-4.8); NEUTROPHILS % (AUTO) 74.6 % (42.0-75.0); PLATELET COUNT 220 X10^3/uL (150.0-450.0); RED CELL DISTRIBUTION WIDTH 14.3 % (11.6-16.5); WHITE BLOOD COUNT 10.2 X10^3/uL (3.6-10.0)
[2024-04-12 15:49] LABS: ALANINE AMINOTRANSFERASE 19 Units/L (12-78); ALBUMIN 3.5 g/dL (3.4-5.0); ALKALINE PHOSPHATASE 52 Units/L (46-116); AMYLASE 33 Units/L (25-115); ASPARTATE AMINO TRANSFERASE 16 Units/L (15-37); BLOOD UREA NITROGEN 24 mg/dL (7-18); CALCIUM 9.4 mg/dL (8.5-10.1); CARBON DIOXIDE 27.7 mmol/L (21-32); CHLORIDE 104 mmol/L (98-107); COR NA(FOR HYPERGLY) 140 mmol/L (136-145); CREATINE KINASE 52 Units/L (26-192); CREATININE 1.77 mg/dL (0.55-1.02); GLUCOSE 131 mg/dL (65-99); LIPASE 62 Units/L (16-77); POTASSIUM 3.8 mmol/L (3.5-5.1); SODIUM 139 mmol/L (136-145); TOTAL PROTEIN 6.7 g/dL (6.4-8.2); eGFR NON BLACK RACES 30 (>60)
[2024-04-12 16:02] LABS: BILIRUBIN,URINE NEGATIVE (NEGATIVE); BLOOD/HEMOGLOBIN,URINE NEGATIVE (NEGATIVE); GLUCOSE, URINE NEGATIVE (NEGATIVE); KETONES,URINE NEGATIVE (NEGATIVE); LEUKOCYTE ESTERASE ,URINE NEGATIVE (NEGATIVE); NITRITES,URINE NEGATIVE (NEGATIVE); PROTEIN,URINE 1+ (NEGATIVE); UROBILINOGEN,URINE NORMAL (NORMAL)
[2024-04-12 16:03] LABS: APPEARANCE,URINE CLEAR (CLEAR); COLOR,URINE YELLOW (YELLOW)
[2024-04-12 16:10] LABS: RBC,URINE 0-2 /HPF (0-3)
[2024-04-12 16:11] LABS: BACTERIA,URINE TRACE /HPF (NEGATIVE); SQUAMOUS EPITHELIAL CELL,UR FEW /HPF (NEGATIVE)
[2024-04-12] MEDS: NS 1,000 ML IV 1,000 ML IV ONE (16:22)
[2024-04-12] MEDS: MORPHINE SULFATE INJ 2 MG INJ IVP ONE ×2 (16:25→19:34)
[2024-04-12] MEDS: ZOFRAN INJ 4 MG VIAL IVP ONE ×2 (16:25→19:33)
--- NOTE | 2024-04-12 17:20 | CT ---
EXAM: ABDOMEN/PELVIS W/O CON HISTORY: ABD PAIN, POSS OBSTRUCTION; COMPARISON: November 11, 2023 TECHNIQUE: Non-contrasted axial CT images of the abdomen and pelvis were obtained and reformatted into coronal a nd sagittal planes for further evaluation. Radiation dose: 434.44 mGy-cm total DLP FINDINGS: Lung bases are clear. Stomach appears normal. Solid visceral organs of the upper abdomen are unremarkable. Status post cholecystectomy. No intra or extrahepatic biliary duct dilatation. Atherosclerotic changes to the abdominal aorta and iliac vessels without aneurysm. Unremarkable appearance of the kidneys. No hydronephrosis, hydroureter or ureteral calculus. Unremarkable appearance of the urinary bladder. Mild colonic wall thickening involving the distal transverse and descending colon with mild pericolon ic edema. Otherwise, unremarkable appearance of the small and large bowel. Reproductive structures are unremarkable. No evidence of acute appendicitis. No pneumoperitoneum. No significant fluid collection. No adenopathy. No acute osseous abnormality. Spinal stimulation device in place. IMPRESSION: Mild colonic wall thickening involving the distal transverse and descending colon with mild pericolon ic edema. Findings could represent infectious, inflammatory or ischemic colitis. THIS IS AN ELECTRONICALLY VERIFIED FINAL REPORT 04/12/2024 5:17 PM - Electronically signed by Luiz Olivas MD
[2024-04-12 18:09] LABS: BLOOD UREA NITROGEN 22 mg/dL (7-18); CALCIUM 8.7 mg/dL (8.5-10.1); CARBON DIOXIDE 26.7 mmol/L (21-32); CHLORIDE 106 mmol/L (98-107); CREATININE 1.59 mg/dL (0.55-1.02); GLUCOSE 94 mg/dL (65-99); POTASSIUM 3.8 mmol/L (3.5-5.1); SODIUM 140 mmol/L (136-145); eGFR NON BLACK RACES 34 (>60)
--- NOTE | 2024-04-12 20:29 | VAS ---
EXAM:LOWER EXT VENOUS, BILATERALHISTORY:POSITIVE D-DIMER, LOOK FOR DVT;COMPARISON:No relevant prior studies available.TECHNIQUE:Grayscale and color Doppler images of the lower extremities.FINDINGS:Right lower extremity:Common femoral, femoral, popliteal and posterior tibial veins demonstrate normal compressibility, color Doppler flow, waveforms and augmentation with no filling defects.Soft tissues: UnremarkableLeft lower extremity:Common femoral, femoral, popliteal and posterior tibial veins demonstrate normal compressibility, color Doppler flow, waveforms and augmentation with no filling defects.Soft tissues:UnremarkableIMPRESSION:No evidence of deep venous thrombus in either lower extremity.THIS IS AN ELECTRONICALLY VERIFIED FINAL REPORT04/12/2024 8:26 PM - Electronically signed by Luiz Olivas MD
[2024-04-12] MEDS: APRESOLINE INJ 20 MG VIAL IVP ONE (20:57)
[2024-04-12] MEDS: FLAGYL IV PREMIX 500 MG BAG 500 MG/100 ML BAG IV SCH (21:43)
[2024-04-12] MEDS: TORADOL 30 MG VIAL IVP ONE (21:43)
[2024-04-12] MEDS ORDERED: VITAMIN D (1.25MG) PO SCH (22:51)
[2024-04-12] MEDS ORDERED: KLOR-CON 10 MEQ TAB PO PRN (22:51)
[2024-04-12] MEDS: CONSULT PHARMACY - POTASSIUM & MAGNESIUM XX SCH (23:00)
[2024-04-12] MEDS: ZANAFLEX PO PRN (23:27)
[2024-04-12] MEDS: CATAPRES TAB 0.1 MG ONE (23:33)
[2024-04-12] MEDS: MORPHINE SULFATE INJ 2 MG INJ ONE (23:34)
[2024-04-12] MEDS: NORCO 7.5/325 MG TAB PO PRN (23:36)
[2024-04-13 00:10] VITALS: BMI 36.0
[2024-04-13] MEDS: FLAGYL IV PREMIX 500 MG BAG 500 MG/100 ML BAG IV ONE (00:21)
[2024-04-13] MEDS: ZOFRAN INJ 4 MG VIAL ONE (00:22)
[2024-04-13] MEDS: CIPRO IV 400 MG PREMIX* 400 MG/200 ML IV.SOLN. IV SCH (00:23)
[2024-04-13] MEDS: NS 500 ML IV 500 ML IV PRN (00:23)
[2024-04-13] MEDS ORDERED: FLAGYL IV PREMIX 500 MG BAG 500 MG/100 ML BAG IV SCH (03:00)
--- NOTE | 2024-04-13 03:49 | RAD ---
PROCEDURE: Chest X-ray 1 View.HISTORY: weakness, HTN; .TECHNIQUE: AP portable view.COMPARISON: November 12 this year.TECHNICAL QUALITY: Satisfactory.FINDINGS:Normal size heart.Mediastinum and hilar regions show no masses or lymphadenopathy.Normal central vascularity.No pulmonary consolidation, masses, pleural fluid, or pneumothorax.No acute bony abnormality.IMPRESSION:No evidence of active cardiopulmonary disease.THIS IS AN ELECTRONICALLY VERIFIED FINAL REPORT04/13/2024 3:36 AM - Electronically signed by Lee Hines MD
[2024-04-13 05:11] LABS: RED CELL DISTRIBUTION WIDTH 14.3 % (11.6-16.5)
[2024-04-13 05:19] LABS: BASOPHILS # (AUTO) 0.1 X10^3/uL (0.0-0.1); EOSINOPHILS # (AUTO) 0.1 x10^3/uL (0.0-0.2); EOSINOPHILS % (AUTO) 2.1 % (0.9-2.9); HEMATOCRIT 23.2 % (36.0-47.0); LYMPHOCYTES # (AUTO) 1.2 X10^3/uL (1.3-2.9); LYMPHOCYTES % (AUTO) 19.6 % (21.0-51.0); MEAN CORPUSCULAR HEMOGLOBIN 30.3 pg (27.0-34.0); MEAN CORPUSCULAR HGB CONC 34.1 g/dL (33.0-35.0); MEAN CORPUSCULAR VOLUME 88.7 fL (80.0-100.0); MEAN PLATELET VOLUME 10.4 fL (7.4-11.0); MONOCYTES # (AUTO) 0.7 x10^3/uL (0.3-0.8); MONOCYTES % (AUTO) 11.8 % (0.0-13.0); NEUTROPHILS % (AUTO) 65.5 % (42.0-75.0); PLATELET COUNT 154 X10^3/uL (150.0-450.0); RED BLOOD COUNT 2.62 X10^6/uL (3.5-5.4)
[2024-04-13 05:26] LABS: ALANINE AMINOTRANSFERASE 14 Units/L (12-78); ALBUMIN 2.7 g/dL (3.4-5.0); ALKALINE PHOSPHATASE 37 Units/L (46-116); ASPARTATE AMINO TRANSFERASE 12 Units/L (15-37); BLOOD UREA NITROGEN 23 mg/dL (7-18); CALCIUM 8.4 mg/dL (8.5-10.1); CARBON DIOXIDE 26.5 mmol/L (21-32); CHLORIDE 107 mmol/L (98-107); COR CA(FOR HYPOALB) 9.4 mg/dL (8.5-10.1); CREATININE 1.88 mg/dL (0.55-1.02); GLUCOSE 88 mg/dL (65-99); POTASSIUM 3.8 mmol/L (3.5-5.1); SODIUM 140 mmol/L (136-145); TOTAL PROTEIN 5.2 g/dL (6.4-8.2); eGFR NON BLACK RACES 28 (>60)
[2024-04-13 05:47] LABS: HEMOGLOBIN 7.9 g/dL (12.0-16.0)
[2024-04-13] MEDS ORDERED: CONSULT PHARMACY - POTASSIUM & MAGNESIUM XX SCH (06:00)
[2024-04-13 08:24] LABS: RETICULOCYTE % 1.37 % (0.8-2.2)
[2024-04-13] MEDS ORDERED: NORVASC TAB 2.5 MG ONE (09:10)
[2024-04-13] MEDS: K-RIDER 10 MEQ/100 ML WATER 10 MEQ/100 ML BAG IV SCH (09:21)
[2024-04-13] MEDS: MAGNESIUM SULFATE 1 GRAM/100 mL PREMIX 1 G/100 ML BAG IV SCH (09:22)
[2024-04-13] MEDS: DEMADEX PO SCH (09:26)
[2024-04-13] MEDS: IMDUR PO SCH (09:26)
[2024-04-13] MEDS: LYRICA CAP 150 mg PO SCH (09:26)
[2024-04-13] MEDS: APRESOLINE TAB 25 MG PO SCH (09:26)
[2024-04-13] MEDS: NORVASC TAB 2.5 MG PO SCH (09:27)
[2024-04-13] MEDS: PATIENT'S HOME MEDICATION (Linaclotide [Linzess] 72 mcg capsule) PO SCH (09:27)
[2024-04-13] MEDS: SYNTHROID 75 mcg TAB PO SCH (09:27)
[2024-04-13] MEDS: CYMBALTA PO SCH (09:27)
[2024-04-13] MEDS: COREG TAB 6.25 MG PO SCH (09:27)
--- NOTE | 2024-04-13 12:01 | DR.H&P ---
H&P History & Physical for Day of: H&P Date: 04/12/24 History of Present Illness History of Present Illness: Patient presents with elevated bp and L abdl/back / hip pain. Patient has had the pain for 2 days. Patient has had a decreased appetite,headache, and nausea. Patient has a h/o Colitis. Patient states that she has been taking her bp meds every day. Past Medical History Past Medical History: Hypertension Past Surgical History Surgical History: Appendectomy, Cholecystectomy, Hysterectomy, Joint Replacement and Ortho Surgery Family History Family Medical History: Cancer, [place] and Hypertension Social History Does patient currently use any type of tobacco product: No Have you used tobacco products in the last 12 months: No Type of Tobacco Use: None Does any household member use tobacco: No Alcohol Use: None Drug Use: None Medications Home Medications: Home Medications Medication Instructions Recorded Confirmed Type duloxetine 60 mg capsule,delayed 60 mg PO QAM anxiety 07/28/21 04/12/24 History release hydrocodone 7.5 mg-acetaminophen 1 tab PO BID PRN 07/28/21 04/12/24 History 325 mg tablet levothyroxine 75 mcg tablet 75 mcg PO QAM hypothyroidism 07/28/21 04/12/24 History potassium chloride 10 mEq 10 meq PO BID PRN 07/28/21 04/12/24 History tablet,extended release pregabalin 150 mg capsule 150 mg PO TID 07/28/21 04/12/24 History tizanidine 4 mg tablet 6 mg PO QHS PRN 07/28/21 04/12/24 History torsemide 20 mg tablet 40 mg PO BID 02/04/22 04/12/24 History ergocalciferol (vitamin D2) 1,250 1,250 mcg PO 2XW 09/13/23 04/12/24 History mcg (50,000 unit) capsule linaclotide 72 mcg capsule 72 mcg PO QAM 09/13/23 04/12/24 History (Linzess) carvedilol 6.25 mg tablet 6.25 mg PO BID 11/09/23 04/12/24 History ibandronate 150 mg tablet 150 mg PO QMONTH 11/09/23 04/12/24 History amlodipine 2.5 mg tablet 2.5 mg PO QDAY 04/12/24 04/12/24 History hydralazine 100 mg tablet 100 mg PO BID 04/12/24 04/12/24 History isosorbide mononitrate 30 mg 30 mg PO QDAY 04/12/24 04/12/24 History tablet,extended release 24 hr Allergies Allergies Allergy/AdvReac Type Severity Reaction Status Date / Time No Known Drug Allergies Allergy Verified 09/13/23 14:18 Labs 04/13/24 04:30 04/13/24 04:30 Labs: Laboratory WBC 6.0 X10^3/uL (3.6-10.0) 04/13/24 04:30 RBC 2.62 X10^6/uL (3.5-5.4) L 04/13/24 04:30 Hgb 7.9 g/dL (12.0-16.0) L D 04/13/24 04:30 Hct 23.2 % (36.0-47.0) L 04/13/24 04:30 MCV 88.7 fL (80.0-100.0) 04/13/24 04:30 MCH 30.3 pg (27.0-34.0) 04/13/24 04:30 MCHC 34.1 g/dL (33.0-35.0) 04/13/24 04:30 RDW 14.3 % (11.6-16.5) 04/13/24 04:30 Plt Count 154 X10^3/uL (150.0-450.0) 04/13/24 04:30 MPV 10.4 fL (7.4-11.0) 04/13/24 04:30 Neut % (Auto) 65.5 % (42.0-75.0) 04/13/24 04:30 Lymph % (Auto) 19.6 % (21.0-51.0) L 04/13/24 04:30 Gray % (Auto) 11.8 % (0.0-13.0) 04/13/24 04:30 Eos % (Auto) 2.1 % (0.9-2.9) 04/13/24 04:30 Baso % (Auto) 1.0 % (0.2-1.0) 04/13/24 04:30 Neut # (Auto) 4.0 x10^3/uL (2.2-4.8) 04/13/24 04:30 Lymph # (Auto) 1.2 X10^3/uL (1.3-2.9) L 04/13/24 04:30 Gray # (Auto) 0.7 x10^3/uL (0.3-0.8) 04/13/24 04:30 Eos # (Auto) 0.1 x10^3/uL (0.0-0.2) 04/13/24 04:30 Baso # (Auto) 0.1 X10^3/uL (0.0-0.1) 04/13/24 04:30 Absolute Nucleated RBC 0.0 /100WBC 04/13/24 04:30 Absolute Retic 0.0380 10^6/uL 04/13/24 08:14 Percent Retic 1.37 % (0.8-2.2) 04/13/24 08:14 D-Dimer 1.01 ug/ml (0.0-0.57) H 04/12/24 14:10 Sodium 140 mmol/L (136-145) 04/13/24 04:30 Corrected Sodium TNP 04/13/24 04:30 Potassium 3.8 mmol/L (3.5-5.1) 04/13/24 04:30 Chloride 107 mmol/L (98-107) 04/13/24 04:30 Carbon Dioxide 26.5 mmol/L (21-32) 04/13/24 04:30 BUN 23 mg/dL (7-18) H 04/13/24 04:30 Creatinine 1.88 mg/dL (0.55-1.02) H 04/13/24 04:30 Est GFR (MDRD) Af Amer 34 (>60) L 04/13/24 04:30 Est GFR (MDRD) Non-Af 28 (>60) L 04/13/24 04:30 Glucose 88 mg/dL (65-99) 04/13/24 04:30 Lactic Acid 0.4 mmol/L (0.4-2.0) 04/13/24 08:14 Calcium 8.4 mg/dL (8.5-10.1) L 04/13/24 04:30 Corrected Calcium 9.4 mg/dL (8.5-10.1) 04/13/24 04:30 Magnesium 1.8 mg/dL (2.0-2.9) L 04/13/24 04:30 Iron 63 ug/dL (50-175) 04/13/24 08:14 TIBC 204 ug/dL (250-450) L 04/13/24 08:14 Transferrin 158 mg/dL (202-364) L 04/13/24 08:14 Ferritin 109 ng/mL (8-252) 04/13/24 08:14 Total Bilirubin 0.60 mg/dL (0.2-1.0) 04/13/24 04:30 AST 12 Units/L (15-37) L 04/13/24 04:30 ALT 14 Units/L (12-78) 04/13/24 04:30 Alkaline Phosphatase 37 Units/L (46-116) L 04/13/24 04:30 Creatine Kinase 52 Units/L (26-192) 04/12/24 14:10 Troponin I High Sens 24.8 ng/L (4.0-60.0) 04/12/24 14:10 B-Natriuretic Peptide 178 pg/mL (0-79) H 04/12/24 14:10 Total Protein 5.2 g/dL (6.4-8.2) L 04/13/24 04:30 Albumin 2.7 g/dL (3.4-5.0) L 04/13/24 04:30 Globulin 2.5 g/dL (2.5-4.5) 04/13/24 04:30 Albumin/Globulin Ratio 1.1 Ratio (1.1-2.1) 04/13/24 04:30 Amylase 33 Units/L (25-115) 04/12/24 14:10 Lipase 62 Units/L (16-77) 04/12/24 14:10 Vitamin B12 423 pg/mL (193-986) 04/13/24 08:14 Folate 19.0 ng/mL (>8.6) 04/13/24 08:14 Specimen Type Clean catch urine 04/12/24 15:54 Urine Color Yellow (YELLOW) 04/12/24 15:54 Urine Appearance Clear (CLEAR) 04/12/24 15:54 Urine pH 6.0 (5.0 - 8.0) 04/12/24 15:54 Ur Specific [place] 1.015 (1.000-1.030) 04/12/24 15:54 Urine Protein 1+ (NEGATIVE) 04/12/24 15:54 Urine Glucose (UA) Negative (NEGATIVE) 04/12/24 15:54 Urine Ketones Negative (NEGATIVE) 04/12/24 15:54 Urine Blood Negative (NEGATIVE) 04/12/24 15:54 Urine Nitrite Negative (NEGATIVE) 04/12/24 15:54 Urine Bilirubin Negative (NEGATIVE) 04/12/24 15:54 Urine Urobilinogen Normal (NORMAL) 04/12/24 15:54 Ur Leukocyte Esterase Negative (NEGATIVE) 04/12/24 15:54 Urine RBC 0-2 /HPF (0-3) 04/12/24 15:54 Urine WBC None seen /HPF (0-5) 04/12/24 15:54 Ur Squamous Epith Cells Few /HPF (NEGATIVE) 04/12/24 15:54 Urine Bacteria Trace /HPF (NEGATIVE) 04/12/24 15:54 Ur Culture Indicated? No/not indicated 04/12/24 15:54 Review of Systems Constitutional: No Symptoms Reported Eyes: No Symptoms Reported ENT: No Symptoms Reported Respiratory: Shortness of Breath Cardiovascular: Edema; denies Chest Pain Gastrointestinal: Constipation Genitourinary: No Symptoms Reported Musculoskeletal: Back Pain Skin: No Symptoms Reported Neurological: No Symptoms Reported Physical Exam Vital Signs: Vital Signs Temperature 98.1 F Temperature 98.3 F Pulse Rate 70 Pulse Rate 64 Pulse Rate 64 Pulse Rate 66 Pulse Rate 68 Pulse Rate 63 Pulse Rate 68 Pulse Rate 78 Pulse Rate 57 Pulse Rate 57 Pulse Rate 57 Pulse Rate 71 Pulse Rate 58 Pulse Rate 57 Pulse Rate 55 Pulse Rate 55 Pulse Rate 56 Pulse Rate 54 Pulse Rate 55 Pulse Rate 54 Pulse Rate 56 Pulse Rate 58 Pulse Rate 56 Pulse Rate 59 Pulse Rate 62 Pulse Rate 60 Pulse Rate 56 Pulse Rate 58 Pulse Rate 58 Pulse Rate 57 Pulse Rate 57 Pulse Rate 56 Pulse Rate 57 Pulse Rate 57 Pulse Rate 58 Pulse Rate 58 Pulse Rate 58 Pulse Rate 59 Pulse Rate 57 Respiratory Rate 16 Respiratory Rate 20 Respiratory Rate 14 Respiratory Rate 14 Respiratory Rate 14 Respiratory Rate 21 Respiratory Rate 13 Respiratory Rate 16 Respiratory Rate 20 Respiratory Rate 11 Respiratory Rate 11 Respiratory Rate 11 Respiratory Rate 15 Respiratory Rate 13 Respiratory Rate 12 Respiratory Rate 11 Respiratory Rate 10 Respiratory Rate 14 Respiratory Rate 11 Respiratory Rate 10 Respiratory Rate 10 Respiratory Rate 11 Respiratory Rate 13 Respiratory Rate 16 Respiratory Rate 12 Respiratory Rate 15 Respiratory Rate 13 Respiratory Rate 13 Respiratory Rate 14 Respiratory Rate 11 Respiratory Rate 13 Respiratory Rate 14 Respiratory Rate 12 Respiratory Rate 16 Respiratory Rate 12 Respiratory Rate 12 Respiratory Rate 12 Respiratory Rate 12 Respiratory Rate 15 Respiratory Rate 12 Blood Pressure 156/70 Blood Pressure 131/58 Blood Pressure 134/59 Blood Pressure 103/51 Blood Pressure 103/57 Blood Pressure 120/58 Blood Pressure 120/58 Blood Pressure 103/52 Blood Pressure 103/52 Blood Pressure 109/51 Blood Pressure 109/51 Blood Pressure 109/55 Blood Pressure 109/55 O2 Sat by Pulse Oximetry 97 O2 Sat by Pulse Oximetry 96 O2 Sat by Pulse Oximetry 97 O2 Sat by Pulse Oximetry 97 O2 Sat by Pulse Oximetry 97 O2 Sat by Pulse Oximetry 95 O2 Sat by Pulse Oximetry 96 O2 Sat by Pulse Oximetry 97 O2 Sat by Pulse Oximetry 98 O2 Sat by Pulse Oximetry 96 O2 Sat by Pulse Oximetry 95 O2 Sat by Pulse Oximetry 96 O2 Sat by Pulse Oximetry 96 O2 Sat by Pulse Oximetry 96 O2 Sat by Pulse Oximetry 96 O2 Sat by Pulse Oximetry 96 O2 Sat by Pulse Oximetry 96 O2 Sat by Pulse Oximetry 96 O2 Sat by Pulse Oximetry 95 O2 Sat by Pulse Oximetry 94 O2 Sat by Pulse Oximetry 95 O2 Sat by Pulse Oximetry 95 O2 Sat by Pulse Oximetry 96 O2 Sat by Pulse Oximetry 94 O2 Sat by Pulse Oximetry 94 O2 Sat by Pulse Oximetry 95 O2 Sat by Pulse Oximetry 96 O2 Sat by Pulse Oximetry 98 O2 Sat by Pulse Oximetry 95 O2 Sat by Pulse Oximetry 97 O2 Sat by Pulse Oximetry 97 O2 Sat by Pulse Oximetry 97 O2 Sat by Pulse Oximetry 98 O2 Sat by Pulse Oximetry 97 O2 Sat by Pulse Oximetry 97 O2 Sat by Pulse Oximetry 96 O2 Sat by Pulse Oximetry 96 O2 Sat by Pulse Oximetry 96 O2 Sat by Pulse Oximetry 96 Oriented: Normal Eyes: Normal Ear: Normal Throat: Dry Respiratory: RLL Diminished and LLL Diminished Cardiovascular: Murmur Auscultation: Bowel Sounds: Decreased Palpation: Normal Tenderness: LLQ Skin: Decreased Turgur Musculoskeletal: Back:Thoracic and Back:Lumbar Psychiatric: Normal Mood Description: Calm Speech Pattern: Clear and Appropriate Assessment/Plan (1) Colitis: Narrative Support Text: ADMIT, IV HYDRATION PAIN CONTROL IV ATBX BP CONTROL, VERIFY HOME MEDICATIONS Status: Acute (2) Generalized weakness: Status: Acute (3) Arthritis: Status: Chronic (4) GERD (gastroesophageal reflux disease): Qualifiers: Esophagitis presence: without esophagitis Qualified Code(s): K21.9 - Gastro-esophageal reflux disease without esophagitis Status: Chronic (5) Restless leg syndrome: Status: Chronic
[2024-04-13] MEDS: MORPHINE SULFATE INJ 2 MG INJ IVP PRN (15:42)
--- NOTE | 2024-04-13 22:44 | RAD ---
EXAM:CHEST, 1 VIEWHISTORY:elevated ddimer, sob;COMPARISON:04/12/2024.TECHNIQUE:Fron saleem view of the chestFINDINGS:Heart size is upper limits of normal. The pulmonary blood flow is congested. Lungs are clear. There is no pleural effusion.IMPRESSION:No acute abnormality.THIS IS AN ELECTRONICALLY VERIFIED FINAL REPORT04/13/2024 10:40 PM - Electronically signed by Todd Thakkar MD
[2024-04-14] MEDS ORDERED: NS 1,000 ML IV 1,000 ML ONE (00:01)
[2024-04-14] MEDS: NS 500 ML IV 300 ML IV ONE (00:07)
[2024-04-14] MEDS: NS 1,000 ML IV 1,000 ML IV SCH (00:22)
[2024-04-14 05:18] LABS: BASOPHILS # (AUTO) 0.1 X10^3/uL (0.0-0.1); BASOPHILS % (AUTO) 1.3 % (0.2-1.0); EOSINOPHILS # (AUTO) 0.2 x10^3/uL (0.0-0.2); EOSINOPHILS % (AUTO) 3.3 % (0.9-2.9); HEMATOCRIT 21.7 % (36.0-47.0); HEMOGLOBIN 7.4 g/dL (12.0-16.0); LYMPHOCYTES % (AUTO) 20.5 % (21.0-51.0); MEAN CORPUSCULAR HEMOGLOBIN 30.4 pg (27.0-34.0); MEAN CORPUSCULAR HGB CONC 34.2 g/dL (33.0-35.0); MEAN CORPUSCULAR VOLUME 88.9 fL (80.0-100.0); MEAN PLATELET VOLUME 10.1 fL (7.4-11.0); MONOCYTES # (AUTO) 0.7 x10^3/uL (0.3-0.8); NEUTROPHILS # (AUTO) 3.1 x10^3/uL (2.2-4.8); NEUTROPHILS % (AUTO) 61.9 % (42.0-75.0); PLATELET COUNT 144 X10^3/uL (150.0-450.0); RED BLOOD COUNT 2.44 X10^6/uL (3.5-5.4); RED CELL DISTRIBUTION WIDTH 14.5 % (11.6-16.5)
[2024-04-14 05:33] LABS: ALANINE AMINOTRANSFERASE 16 Units/L (12-78); ALBUMIN 2.6 g/dL (3.4-5.0); ALKALINE PHOSPHATASE 34 Units/L (46-116); ASPARTATE AMINO TRANSFERASE 13 Units/L (15-37); BLOOD UREA NITROGEN 24 mg/dL (7-18); CALCIUM 7.8 mg/dL (8.5-10.1); CARBON DIOXIDE 25.6 mmol/L (21-32); CHLORIDE 104 mmol/L (98-107); COR CA(FOR HYPOALB) 8.9 mg/dL (8.5-10.1); CREATININE 2.29 mg/dL (0.55-1.02); GLUCOSE 109 mg/dL (65-99); MAGNESIUM 1.8 mg/dL (2.0-2.9); POTASSIUM 3.4 mmol/L (3.5-5.1); SODIUM 137 mmol/L (136-145); TOTAL PROTEIN 4.9 g/dL (6.4-8.2); eGFR NON BLACK RACES 22 (>60)
[2024-04-14] MEDS ORDERED: CONSULT PHARMACY - POTASSIUM & MAGNESIUM XX SCH (07:00)
[2024-04-14] MEDS: NS 250 ML IV 250 ML IV ONE (08:39)
[2024-04-14] MEDS ORDERED: K-RIDER 10 MEQ/100 ML WATER 10 MEQ/100 ML BAG IV SCH (09:00)
[2024-04-14] MEDS: CONSULT PHARMACY - POTASSIUM & MAGNESIUM XX SCH (10:41)
[2024-04-14] MEDS ORDERED: LYRICA CAP 150 mg PO PRN (10:45)
[2024-04-14] MEDS: MAGNESIUM SULFATE 1 GRAM/100 mL PREMIX 1 G/100 ML BAG IV ONE (10:59)
[2024-04-14] MEDS: K-DUR TAB 20 MEQ PO SCH (10:59)
--- NOTE | 2024-04-14 15:47 | RAD ---
EXAMINATION: CHEST, 1 VIEW HISTORY: PNEUMONIA, COVD +; HTN SX- CHOLECYSTECTOMY, APPENDECTOMY, HYSTERECTOMY, ORTHO . COMPARISON STUDY: 04/13/2024 TECHNIQUE: One view FINDINGS: Heart size is upper limits of normal. Mild central vascular congestion. No acute infiltrates. No p neumothorax. Hilar and mediastinal structures and bony structures are unchanged. Spinal stimulator device noted. IMPRESSION: No acute findings. THIS IS AN ELECTRONICALLY VERIFIED FINAL REPORT 04/14/2024 3:44 PM - Electronically signed by Hilario Toscano MD
[2024-04-14] MEDS: COREG TAB 3.125 MG PO SCH (20:31)
[2024-04-14] MEDS: RESTORIL CAP 15 MG PO PRN (22:32)
[2024-04-14] MEDS: MILK OF MAGNESIA PO PRN (22:32)
--- NOTE | 2024-04-14 23:42 | EKG ---
Test Reason : hypertension protocol Blood Pressure : */* mmHG Vent. Rate : 69 BPM Atrial Rate : 69 BPM P-R Int : 116 ms QRS Dur : 100 ms QT Int : 428 ms P-R-T Axes : 29 7 28 degrees QTc Int : 458 ms Sinus rhythm with premature atrial complexes Otherwise normal ECG When compared with ECG of 14-SEP-2023 11:26, No significant change was found Confirmed by Mitchell German MD ([id number]) on 04/16/2024 6:55:52 AM Referred By: Confirmed By: Mitchell German MD
[2024-04-14] MEDS: CATAPRES TAB 0.1 MG PO ONE (23:50)
[2024-04-15] MEDS: APRESOLINE INJ 20 MG VIAL IVP ONE (01:10)
[2024-04-15] MEDS ORDERED: CATAPRES TAB 0.1 MG PO PRN (03:48)
[2024-04-15] MEDS ORDERED: APRESOLINE INJ 20 MG VIAL IVP PRN (03:49)
[2024-04-15] MEDS: NORMODYNE INJ 20 MG VIAL IV PRN (03:59)
[2024-04-15 06:42] LABS: BASOPHILS # (AUTO) 0.1 X10^3/uL (0.0-0.1); BASOPHILS % (AUTO) 0.8 % (0.2-1.0); EOSINOPHILS # (AUTO) 0.3 x10^3/uL (0.0-0.2); EOSINOPHILS % (AUTO) 3.3 % (0.9-2.9); HEMATOCRIT 26.3 % (36.0-47.0); HEMOGLOBIN 9.1 g/dL (12.0-16.0); LYMPHOCYTES # (AUTO) 1.1 X10^3/uL (1.3-2.9); LYMPHOCYTES % (AUTO) 13.2 % (21.0-51.0); MEAN CORPUSCULAR HEMOGLOBIN 30.3 pg (27.0-34.0); MEAN CORPUSCULAR HGB CONC 34.6 g/dL (33.0-35.0); MEAN CORPUSCULAR VOLUME 87.6 fL (80.0-100.0); MEAN PLATELET VOLUME 10.5 fL (7.4-11.0); MONOCYTES # (AUTO) 0.9 x10^3/uL (0.3-0.8); MONOCYTES % (AUTO) 10.8 % (0.0-13.0); NEUTROPHILS # (AUTO) 5.9 x10^3/uL (2.2-4.8); NEUTROPHILS % (AUTO) 71.9 % (42.0-75.0); PLATELET COUNT 146 X10^3/uL (150.0-450.0); RED CELL DISTRIBUTION WIDTH 14.1 % (11.6-16.5); WHITE BLOOD COUNT 8.2 X10^3/uL (3.6-10.0)
[2024-04-15 07:03] LABS: ALANINE AMINOTRANSFERASE 16 Units/L (12-78); ALKALINE PHOSPHATASE 44 Units/L (46-116); ASPARTATE AMINO TRANSFERASE 18 Units/L (15-37); BLOOD UREA NITROGEN 22 mg/dL (7-18); CALCIUM 8.5 mg/dL (8.5-10.1); CARBON DIOXIDE 24.8 mmol/L (21-32); CHLORIDE 101 mmol/L (98-107); COR CA(FOR HYPOALB) 9.3 mg/dL (8.5-10.1); CREATININE 2.11 mg/dL (0.55-1.02); GLUCOSE 104 mg/dL (65-99); MAGNESIUM 2.3 mg/dL (2.0-2.9); POTASSIUM 3.6 mmol/L (3.5-5.1); SODIUM 135 mmol/L (136-145); TOTAL PROTEIN 5.7 g/dL (6.4-8.2); eGFR NON BLACK RACES 24 (>60)
[2024-04-15 07:24] LABS: PLATELET MORPHOLOGY COMMENT NORMAL (NORMAL)
[2024-04-15] MEDS: DEMADEX PO SCH (09:09)
[2024-04-15] MEDS: NORVASC TAB 2.5 MG ONE (09:36)
[2024-04-15] MEDS ORDERED: CONSULT PHARMACY - POTASSIUM & MAGNESIUM XX SCH (13:00)
[2024-04-15] MEDS: POTASSIUM CHLORIDE LIQ PO SCH (14:42)
[2024-04-15] MEDS: COLACE CAP 100 MG PO PRN (21:41)
[2024-04-16 05:31] LABS: BASOPHILS # (AUTO) 0.1 X10^3/uL (0.0-0.1); BASOPHILS % (AUTO) 1.4 % (0.2-1.0); EOSINOPHILS # (AUTO) 0.3 x10^3/uL (0.0-0.2); HEMOGLOBIN 9.3 g/dL (12.0-16.0); LYMPHOCYTES # (AUTO) 1.6 X10^3/uL (1.3-2.9); LYMPHOCYTES % (AUTO) 17.9 % (21.0-51.0); MEAN CORPUSCULAR HEMOGLOBIN 30.5 pg (27.0-34.0); MEAN CORPUSCULAR HGB CONC 34.5 g/dL (33.0-35.0); MEAN CORPUSCULAR VOLUME 88.3 fL (80.0-100.0); MEAN PLATELET VOLUME 10.3 fL (7.4-11.0); MONOCYTES # (AUTO) 1.4 x10^3/uL (0.3-0.8); MONOCYTES % (AUTO) 15.6 % (0.0-13.0); NEUTROPHILS # (AUTO) 5.4 x10^3/uL (2.2-4.8); NEUTROPHILS % (AUTO) 62.1 % (42.0-75.0); PLATELET COUNT 203 X10^3/uL (150.0-450.0); RED BLOOD COUNT 3.06 X10^6/uL (3.5-5.4); RED CELL DISTRIBUTION WIDTH 14.4 % (11.6-16.5); WHITE BLOOD COUNT 8.7 X10^3/uL (3.6-10.0)
[2024-04-16 05:38] LABS: ALBUMIN 3.2 g/dL (3.4-5.0); CALCIUM 8.9 mg/dL (8.5-10.1); CARBON DIOXIDE 30.9 mmol/L (21-32); COR CA(FOR HYPOALB) 9.5 mg/dL (8.5-10.1); CREATININE 2.01 mg/dL (0.55-1.02); POTASSIUM 3.3 mmol/L (3.5-5.1); TOTAL PROTEIN 5.9 g/dL (6.4-8.2)
[2024-04-16] MEDS ORDERED: CONSULT PHARMACY - POTASSIUM & MAGNESIUM XX SCH (07:00)
[2024-04-16] MEDS ORDERED: NORVASC TAB 2.5 MG ONE (08:47)
[2024-04-16] MEDS: K-DUR TAB 20 MEQ PO SCH (08:57)
[2024-04-16] MEDS: REGLAN INJ 10 MG VIAL IVP PRN (11:22)
[2024-04-16 11:53] VITALS: PULSE 77; RESP 19; TEMP 97.5; O2SAT 97
[2024-04-16 14:08] VITALS: BP 139/64
[2024-05-12] MEDS ORDERED: PATIENT'S HOME MEDICATION (Ibandronate 150 mg tablet) PO SCH (09:00)
== END 2024-04-16 15:20 | disposition home or self-care (01) ==
LOC: ER 13:57 → ICU 13:57 → MED/SURG 04-13 15:38
PROVIDERS: ADMIT Internal Medicine; ATTEND Internal Medicine
DX: M25.552 Pain in left hip; K21.9 Gastro-esophageal reflux disease without esophagitis; I10 Essential (primary) hypertension; G25.81 Restless legs syndrome; N28.89 Other specified disorders of kidney and ureter; R53.1 Weakness; E86.0 Dehydration; M19.90 Unspecified osteoarthritis, unspecified site; R79.1 Abnormal coagulation profile; R06.02 Shortness of breath; K52.89 Other specified noninfective gastroenteritis and colitis; R10.84 Generalized abdominal pain; R51.9 Headache, unspecified; I95.89 Other hypotension; E83.42 Hypomagnesemia

== ENCOUNTER 2024-06-18 11:40 | Observation (INO) ==
--- NOTE | 2024-06-18 12:02 | DR.DIZZY ---
HPI Time seen Time Seen by Provider: 06/18/24 12:02 PCP Primary Care Physician: Lottie AGUIRRE HPI Comment HPI Comment: History as below. Complaint Chief Complaint:: Patient states that she was recently admitted to the hospital and was discharged. She states that she feels like she has not gotten any bet ter. She reports that she has been weak, has had loose stools, and she states that she cannot eat or sleep. She called Dr. Lara today for an appointment and he advised her to present to the ER for labs. COVID-19 Coronavirus risk:travel/contact w/high risk person: No Has patient experienced Coronavirus symptoms: No Nurses Notes Reviewed Nurses Notes Review: Yes Source History Provided: Patient Mode of Arrival Mode of Arrival: Wheelchair Timing Onset of Chief Complaint: 06/14/24 Location of Weakness Weakness Location: Generalized PMH PMH Past Medical History: Yes Past Medical History: Anemia, Arthritis, CHF, Depression, Dyslipidemia, GERD, Hypertension, Hypothyroidism and Renal Disease Past Surgical History: Yes Surgical History: Appendectomy, Cholecystectomy, Hysterectomy, Joint Replacement and Ortho Surgery Family History History of Family Medical Conditions: Yes Family Medical History: Cancer, [place] and Hypertension Social History Does patient currently use any type of tobacco product: No Have you used tobacco products in the last 12 months: No Type of Tobacco Use: None Does any household member use tobacco: No Alcohol Use: None Do you use any recreational Drugs:: No Lives With: Family Lives Where: Home Travel Risk Coronavirus risk:travel/contact w/high risk person: No Has patient experienced Coronavirus symptoms: No Infectious screening In the last 2 months have you had wt loss of >10#?: NO Have you had fever, night sweats or hemotysis?: No Have you traveled outside the country in the last 6 months?: No Isolation: Standard PE Vital Signs Vitals: Vital Signs Pulse Rate 77 Pulse Rate 82 Pulse Rate 78 Pulse Rate 79 Pulse Rate 79 Pulse Rate 80 Pulse Rate 80 Pulse Rate 81 Pulse Rate 82 Pulse Rate 83 Pulse Rate 81 Pulse Rate 85 Pulse Rate 84 Pulse Rate 89 Pulse Rate 86 Pulse Rate 86 Pulse Rate 87 Pulse Rate 86 Pulse Rate 85 Pulse Rate 86 Pulse Rate 84 Pulse Rate 84 Pulse Rate 80 Pulse Rate 83 Pulse Rate 82 Pulse Rate 83 Pulse Rate 81 Respiratory Rate 20 Blood Pressure 169/72 Blood Pressure 152/92 Blood Pressure 156/67 Blood Pressure 170/74 Blood Pressure 181/76 Blood Pressure 163/70 Blood Pressure 174/77 Blood Pressure 170/72 Blood Pressure 172/72 Blood Pressure 170/73 Blood Pressure 186/77 Blood Pressure 187/76 Blood Pressure 182/76 O2 Sat by Pulse Oximetry 97 O2 Sat by Pulse Oximetry 95 O2 Sat by Pulse Oximetry 95 O2 Sat by Pulse Oximetry 95 O2 Sat by Pulse Oximetry 95 O2 Sat by Pulse Oximetry 93 O2 Sat by Pulse Oximetry 93 O2 Sat by Pulse Oximetry 95 O2 Sat by Pulse Oximetry 97 O2 Sat by Pulse Oximetry 97 O2 Sat by Pulse Oximetry 96 O2 Sat by Pulse Oximetry 96 O2 Sat by Pulse Oximetry 93 O2 Sat by Pulse Oximetry 95 O2 Sat by Pulse Oximetry 94 O2 Sat by Pulse Oximetry 94 O2 Sat by Pulse Oximetry 93 O2 Sat by Pulse Oximetry 93 O2 Sat by Pulse Oximetry 92 O2 Sat by Pulse Oximetry 93 O2 Sat by Pulse Oximetry 93 O2 Sat by Pulse Oximetry 94 O2 Sat by Pulse Oximetry 96 O2 Sat by Pulse Oximetry 98 O2 Sat by Pulse Oximetry 97 O2 Sat by Pulse Oximetry 96 O2 Sat by Pulse Oximetry 96 O2 Sat by Pulse Oximetry 97 ROR Labs Reviewed 06/19/24 05:35 06/19/24 05:35 Laboratory: WBC 11.4 X10^3/uL (3.6-10.0) H 06/18/24 12:47 RBC 3.41 X10^6/uL (3.5-5.4) L 06/18/24 12:47 Hgb 10.3 g/dL (12.0-16.0) L 06/18/24 12:47 Hct 30.4 % (36.0-47.0) L 06/18/24 12:47 MCV 89.2 fL (80.0-100.0) 06/18/24 12:47 MCH 30.3 pg (27.0-34.0) 06/18/24 12:47 MCHC 34.0 g/dL (33.0-35.0) 06/18/24 12:47 RDW 13.9 % (11.6-16.5) 06/18/24 12:47 Plt Count 219 X10^3/uL (150.0-450.0) 06/18/24 12:47 MPV 11.2 fL (7.4-11.0) H 06/18/24 12:47 Neut % (Auto) 75.2 % (42.0-75.0) H 06/18/24 12:47 Lymph % (Auto) 12.9 % (21.0-51.0) L 06/18/24 12:47 [place] % (Auto) 8.6 % (0.0-13.0) 06/18/24 12:47 Eos % (Auto) 1.9 % (0.9-2.9) 06/18/24 12:47 Baso % (Auto) 1.4 % (0.2-1.0) H 06/18/24 12:47 Neut # (Auto) 8.6 x10^3/uL (2.2-4.8) H 06/18/24 12:47 Lymph # (Auto) 1.5 X10^3/uL (1.3-2.9) 06/18/24 12:47 [place] # (Auto) 1.0 x10^3/uL (0.3-0.8) H 06/18/24 12:47 Eos # (Auto) 0.2 x10^3/uL (0.0-0.2) 06/18/24 12:47 Baso # (Auto) 0.2 X10^3/uL (0.0-0.1) H 06/18/24 12:47 Absolute Nucleated RBC 0.1 /100WBC 06/18/24 12:47 Sodium 143 mmol/L (136-145) 06/18/24 12:47 Corrected Sodium 143 mmol/L (136-145) 06/18/24 12:47 Potassium 4.0 mmol/L (3.5-5.1) 06/18/24 12:47 Chloride 105 mmol/L (98-107) 06/18/24 12:47 Carbon Dioxide 26.0 mmol/L (21-32) 06/18/24 12:47 BUN 24 mg/dL (7-18) H 06/18/24 12:47 Creatinine 1.83 mg/dL (0.55-1.02) H 06/18/24 12:47 Est GFR (MDRD) Af Amer 35 (>60) L 06/18/24 12:47 Est GFR (MDRD) Non-Af 29 (>60) L 06/18/24 12:47 Glucose 117 mg/dL (65-99) H 06/18/24 12:47 Calcium 10.1 mg/dL (8.5-10.1) 06/18/24 12:47 Corrected Calcium TNP 06/18/24 12:47 Total Bilirubin 0.70 mg/dL (0.2-1.0) 06/18/24 12:47 AST 22 Units/L (15-37) 06/18/24 12:47 ALT 12 Units/L (12-78) 06/18/24 12:47 Alkaline Phosphatase 74 Units/L (46-116) 06/18/24 12:47 Creatine Kinase 46 Units/L (26-192) 06/18/24 12:47 Troponin I High Sens 13.5 ng/L (4.0-60.0) 06/18/24 12:47 Troponin I High Sens 14.3 ng/L (4.0-60.0) 06/18/24 12:47 B-Natriuretic Peptide 132 pg/mL (0-79) H 06/18/24 12:47 Total Protein 7.7 g/dL (6.4-8.2) 06/18/24 12:47 Albumin 3.7 g/dL (3.4-5.0) 06/18/24 12:47 Globulin 4.0 g/dL (2.5-4.5) 06/18/24 12:47 Albumin/Globulin Ratio 0.9 Ratio (1.1-2.1) L 06/18/24 12:47 Opioid Opioid Risk Tool Age (Broderick box if 16-45): No History of Preadolescent Sexual Abuse: No Total: 0 Total Score Risk Category: Low Risk Copyright: Jarod RAHMAN predicting aberrant behaviors Discharge Plan Diagnosis Discharge Problem: Generalized weakness, Dizziness Diarrhea Qualifiers: Diarrhea type: unspecified type Qualified Code(s): R19.7 - Diarrhea, unspecified Anemia Qualifiers: Anemia type: unspecified type Qualified Code(s): D64.9 - Anemia, unspecified Insomnia Qualifiers: Insomnia type: unspecified Qualified Code(s): G47.00 - Insomnia, unspecified Discharge Plan Patient Disposition: 09 ADMITTED INPATIENT Condition: Stable Prescription drug monitoring program results: PDMP was not reviewed
--- NOTE | 2024-06-18 12:24 | EKG ---
Test Reason : CHF Blood Pressure : */* mmHG Vent. Rate : 82 BPM Atrial Rate : 82 BPM P-R Int : 152 ms QRS Dur : 92 ms QT Int : 406 ms P-R-T Axes : 77 38 58 degrees QTc Int : 474 ms Normal sinus rhythm Normal ECG When compared with ECG of 13-JUN-2024 13:39, No significant change was found Confirmed by Dwayne Dorado ([id number]) on 06/18/2024 12:25:00 PM Referred By: Confirmed By: Dwayne Dorado
[2024-06-18 13:22] LABS: BASOPHILS # (AUTO) 0.2 X10^3/uL (0.0-0.1); BASOPHILS % (AUTO) 1.4 % (0.2-1.0); EOSINOPHILS # (AUTO) 0.2 x10^3/uL (0.0-0.2); EOSINOPHILS % (AUTO) 1.9 % (0.9-2.9); HEMATOCRIT 30.4 % (36.0-47.0); HEMOGLOBIN 10.3 g/dL (12.0-16.0); LYMPHOCYTES # (AUTO) 1.5 X10^3/uL (1.3-2.9); LYMPHOCYTES % (AUTO) 12.9 % (21.0-51.0); MEAN CORPUSCULAR HEMOGLOBIN 30.3 pg (27.0-34.0); MEAN CORPUSCULAR VOLUME 89.2 fL (80.0-100.0); MEAN PLATELET VOLUME 11.2 fL (7.4-11.0); MONOCYTES % (AUTO) 8.6 % (0.0-13.0); NEUTROPHILS # (AUTO) 8.6 x10^3/uL (2.2-4.8); NEUTROPHILS % (AUTO) 75.2 % (42.0-75.0); PLATELET COUNT 219 X10^3/uL (150.0-450.0); RED BLOOD COUNT 3.41 X10^6/uL (3.5-5.4); RED CELL DISTRIBUTION WIDTH 13.9 % (11.6-16.5); WHITE BLOOD COUNT 11.4 X10^3/uL (3.6-10.0)
[2024-06-18] MEDS: NORCO 7.5/325 MG TAB PO ONE (13:40)
[2024-06-18 13:41] LABS: ALANINE AMINOTRANSFERASE 12 Units/L (12-78); ALBUMIN 3.7 g/dL (3.4-5.0); ALKALINE PHOSPHATASE 74 Units/L (46-116); ASPARTATE AMINO TRANSFERASE 22 Units/L (15-37); BLOOD UREA NITROGEN 24 mg/dL (7-18); CALCIUM 10.1 mg/dL (8.5-10.1); CHLORIDE 105 mmol/L (98-107); COR NA(FOR HYPERGLY) 143 mmol/L (136-145); CREATINE KINASE 46 Units/L (26-192); CREATININE 1.83 mg/dL (0.55-1.02); GLUCOSE 117 mg/dL (65-99); SODIUM 143 mmol/L (136-145); TOTAL PROTEIN 7.7 g/dL (6.4-8.2); eGFR NON BLACK RACES 29 (>60)
--- NOTE | 2024-06-18 17:18 | CT ---
EXAM: BRAIN W/O CON HISTORY: DIZZINESS; COMPARISON: December [address] TECHNIQUE: Multiple axial images of the brain were obtained from the skull base to the vertex without administra tion of IV contrast. Dose reduction techniques including Automated Exposure Control (AEC) and adjust ment of mA and kV were utilized. FINDINGS: No acute intraparenchymal hemorrhage or mass can be identified. No extra-axial fluid collections are seen. No alteration in the attenuation of the brain parenchyma can be identified to suggest acute or subacute ischemic change. Scattered small-vessel ischemic changes and age-appropriate atrophy are no mook. The ventricular system is symmetric and nondilated. The extracranial structures appear unremark able. IMPRESSION: 1. No acute intracranial process can be identified. THIS IS AN ELECTRONICALLY VERIFIED FINAL REPORT 06/18/2024 5:14 PM - Electronically signed by Kraig Garzon MD
--- NOTE | 2024-06-18 19:42 | CT ---
EXAM:ABDOMEN/PELVIS W/O CONHISTORY:She states that she feels like she has not gotten any better. She reports that she has been weak, has had loose stools, and she states that she cannot eat or sleep.;COMPARISON:04/12/2024.TECHNIQUE:N onenhanced spiral CT imaging was performed through the abdomen and pelvis and axial, coronal, and sagittal CT images were generated.FINDINGS:Trace left pleural effusion. Small pericardial effusion as well. Liver is normal. The gallbladder has been removed. The pancreas, spleen, adrenal glands are normal. The right kidney is grossly normal. There is cortical thinning in the upper pole of the left kidney and normal volume in the lower pole. There is no stone or hydronephrosis. There is urinary bladder wall thickening. Uterus has been removed. The stomach is normal. There is no abnormal dilation of the small bowel. There is no evidence for appendicitis. The large bowel loops are unremarkable. There is severe systemic atherosclerosis. No definitive changes of ischemic bowel are identified.IMPRESSION:1. Non-specific bowel-gas pattern without obstruction and without evidence for ischemic bowel.2. Severe systemic atherosclerosis.THIS IS AN ELECTRONICALLY VERIFIED FINAL BANWCO1906/18/2024 7:39 PM - Electronically signed by Todd Thakkar MD
[2024-06-18 20:42] LABS: BILIRUBIN,URINE NEGATIVE (NEGATIVE); BLOOD/HEMOGLOBIN,URINE NEGATIVE (NEGATIVE); GLUCOSE, URINE NEGATIVE (NEGATIVE); KETONES,URINE NEGATIVE (NEGATIVE); LEUKOCYTE ESTERASE ,URINE NEGATIVE (NEGATIVE); NITRITES,URINE NEGATIVE (NEGATIVE); PROTEIN,URINE 2+ (NEGATIVE); UROBILINOGEN,URINE NORMAL (NORMAL)
[2024-06-18 21:05] LABS: APPEARANCE,URINE CLEAR (CLEAR); COLOR,URINE YELLOW (YELLOW)
[2024-06-18 21:06] LABS: BACTERIA,URINE TRACE /HPF (NEGATIVE); RBC,URINE NONE SEEN /HPF (0-3); SQUAMOUS EPITHELIAL CELL,UR FEW /HPF (NEGATIVE)
[2024-06-18 21:55] VITALS: BMI 34.7
[2024-06-18] MEDS: ZANAFLEX PO SCH (23:05)
[2024-06-18] MEDS: COREG TAB 12.5 MG PO SCH (23:05)
--- NOTE | 2024-06-19 05:08 | RAD ---
EXAM: CHEST, 1 VIEW HISTORY: SOB; COMPARISON: 06/13/2024 FINDINGS: The cardiomediastinal silhouette is stable. Similar intrathecal stimulator wires overlying the media stinum. Chronic appearing interstitial changes in the lungs. No acute airspace disease. No pneumothorax or ef fusion. No acute osseous abnormality. IMPRESSION: No acute cardiopulmonary disease. THIS IS AN ELECTRONICALLY VERIFIED FINAL REPORT 06/19/2024 5:04 AM - Electronically signed by Feroz Sorensen MD
[2024-06-19 06:23] LABS: BASOPHILS # (AUTO) 0.1 X10^3/uL (0.0-0.1); BASOPHILS % (AUTO) 0.9 % (0.2-1.0); EOSINOPHILS # (AUTO) 0.3 x10^3/uL (0.0-0.2); EOSINOPHILS % (AUTO) 3.2 % (0.9-2.9); HEMATOCRIT 27.4 % (36.0-47.0); HEMOGLOBIN 9.4 g/dL (12.0-16.0); LYMPHOCYTES # (AUTO) 1.9 X10^3/uL (1.3-2.9); LYMPHOCYTES % (AUTO) 19.3 % (21.0-51.0); MEAN CORPUSCULAR HEMOGLOBIN 30.4 pg (27.0-34.0); MEAN CORPUSCULAR HGB CONC 34.4 g/dL (33.0-35.0); MEAN CORPUSCULAR VOLUME 88.2 fL (80.0-100.0); MEAN PLATELET VOLUME 11.1 fL (7.4-11.0); MONOCYTES # (AUTO) 1.1 x10^3/uL (0.3-0.8); MONOCYTES % (AUTO) 10.6 % (0.0-13.0); NEUTROPHILS # (AUTO) 6.6 x10^3/uL (2.2-4.8); PLATELET COUNT 193 X10^3/uL (150.0-450.0); RED CELL DISTRIBUTION WIDTH 13.9 % (11.6-16.5); WHITE BLOOD COUNT 9.9 X10^3/uL (3.6-10.0)
[2024-06-19 06:41] LABS: BLOOD UREA NITROGEN 23 mg/dL (7-18); CALCIUM 10.2 mg/dL (8.5-10.1); CARBON DIOXIDE 26.9 mmol/L (21-32); CHLORIDE 107 mmol/L (98-107); CREATININE 1.85 mg/dL (0.55-1.02); GLUCOSE 106 mg/dL (65-99); POTASSIUM 3.8 mmol/L (3.5-5.1); SODIUM 145 mmol/L (136-145); eGFR NON BLACK RACES 28 (>60)
[2024-06-19] MEDS ORDERED: CONSULT PHARMACY - POTASSIUM & MAGNESIUM XX SCH (07:00)
[2024-06-19 07:01] LABS: ALANINE AMINOTRANSFERASE 17 Units/L (12-78); ALBUMIN 3.4 g/dL (3.4-5.0); ALKALINE PHOSPHATASE 65 Units/L (46-116); ASPARTATE AMINO TRANSFERASE 23 Units/L (15-37); MAGNESIUM 2.7 mg/dL (2.0-2.9)
[2024-06-19] MEDS ORDERED: ZANAFLEX PO PRN (07:09)
[2024-06-19] MEDS: NORCO 7.5/325 MG TAB ONE (07:28)
[2024-06-19] MEDS: NORVASC TAB 10 MG PO SCH (08:50)
[2024-06-19] MEDS: DEMADEX PO SCH (08:50)
[2024-06-19] MEDS: IMDUR PO SCH (08:50)
[2024-06-19] MEDS: CYMBALTA PO SCH (08:51)
[2024-06-19] MEDS: COREG TAB 12.5 MG PO SCH (08:51)
[2024-06-19] MEDS: KLOR-CON 10 MEQ TAB PO SCH (08:51)
[2024-06-19] MEDS: HEMOCYTE-PLUS PO SCH (08:52)
[2024-06-19] MEDS: SYNTHROID 75 mcg TAB PO SCH (08:52)
--- NOTE | 2024-06-19 09:13 | EKG ---
Test Reason : Generalized weakness, dizziness Blood Pressure : */* mmHG Vent. Rate : 80 BPM Atrial Rate : 80 BPM P-R Int : 170 ms QRS Dur : 90 ms QT Int : 428 ms P-R-T Axes : 49 4 19 degrees QTc Int : 493 ms Normal sinus rhythm Nonspecific ST abnormality Prolonged QT Abnormal ECG When compared with ECG of 18-JUN-2024 12:20, Nonspecific T wave abnormality now evident in Anterior leads Confirmed by Mitchell German MD ([id number]) on 06/19/2024 12:34:02 PM Referred By: Confirmed By: Mitchell German MD
[2024-06-19 09:24] VITALS: TEMP 98.5
--- NOTE | 2024-06-19 09:29 | DR.CONSULT ---
CONSULT Consultation for Day of: Date: 06/19/24 Chief Complaint Chief Complaint: 73 yo female- was in hosp last week for anasarca- diuresised and doing much better but very weak after aggressive diuresis- came back to er due to that- feels somewhat better today- no angina - last stress 2014- has severe atherosclerosis on CT- ekg: normal- bp high - ? was to do stress- nuc not available until tuesday- no sign sx- will do as outpt- needs better bp control- check tsh too if not done Allergies Allergies Allergy/AdvReac Type Severity Reaction Status Date / Time No Known Drug Allergies Allergy Verified 06/13/24 13:14 Past Medical History Past Medical History: Anemia, Arthritis, CHF, Depression, Dyslipidemia, GERD, Hypertension, Hypothyroidism and Renal Disease Past Surgical History Surgical History: Appendectomy, Cholecystectomy, Hysterectomy, Joint Replacement and Ortho Surgery Family History Family Medical History: Cancer, [place], Heart Failure and Hypertension Social History Does patient currently use any type of tobacco product: No Have you used tobacco products in the last 12 months: No Type of Tobacco Use: None Does any household member use tobacco: No Alcohol Use: None Drug Use: None Medications Home Medications: No Known Drug Allergies Allergy (Verified 06/13/24 13:14) Physical Exam Vital Signs: Vital Signs Temperature 98.3 F Pulse Rate [Left Radial] 83 Respiratory Rate 20 Blood Pressure [Right Arm] 157/70 O2 Sat by Pulse Oximetry 96 alert ox3 clear lungs rrr 2/6 berry s2 preserved minimal edema labs: wbc 9.9, hct 27, bun/cr 23/1.85, bnp 132, trop negative x 2, alb 3.4 cxr/haed ct/abd ct : ok except atherosclerosis seen echo last week: lvh good lv mild as-trace ai/mr/normal pa- mean AoV grad 14/max 25 Plan (1) Generalized weakness: Status: Acute Plan: check tsh- control bp- stress test as outpt- chanel العراقي- last stress 2014 (2) Mild aortic stenosis: Status: Acute (3) Essential (primary) hypertension: Status: Chronic (4) Chronic diastolic heart failure: Status: Chronic (5) Acquired hypothyroidism: Status: Chronic (6) Anemia: Status: Acute Qualifiers: Anemia type: unspecified type Qualified Code(s): D64.9 - Anemia, unspecified
[2024-06-19] MEDS: ATIVAN TAB 0.5 MG PO ONE (11:07)
[2024-06-19] MEDS: NORCO 7.5/325 MG TAB PO PRN (11:07)
[2024-06-19 12:52] VITALS: BP 143/60; PULSE 74; RESP 18; O2SAT 94
--- NOTE | 2024-06-19 16:42 | DR.SSS ---
SHORT STAY SUMMARY Admission Date Date of Admission: 06/18/24 Discharge Date Discharge Date: 06/19/24 Admission Diagnoses Admission Diagnoses: Dyspnea, weakness, chronic diastolic heart failure, anemia of chronic kidney disease stage IV, atherosclerotic cardiovascular disease of the abdomen. Discharge Diagnoses Discharge Diagnoses: Same. Chief Complaint Chief Complaint: Weakness History of Present Illness History of Present Illness: Patient presented with sister to the hospital after worsening weakness. Was in the hospital last week secondary to anasarca due to acute on chronic diastolic heart failure exacerbation with new diagnosis of mild aortic stenosis. She responded well to diuresis. She went home in improved condition but then started to develop weakness, diarrhea, and malaise. Workup in the ER was benign other than mild leukocytosis that resolved this morning. CT of the abdomen did not show a source for her diarrhea but did show atherosclerosis of multiple vessels. Cardiology was consulted for potential nuclear stress test. They agree that would be the neck step in her workup given her echo last week, but we are unable to do nuclear imaging here. After discussion with patient and family, it was decided that she would like to go to [facility] in [place]. Her normal sieve repairer is an [facility] sieve repairer in [place]. ROS: Significant for weakness, obesity, diarrhea, and difficulty walking. 12 po int ROS otherwise negative. Vitals, labs, and imaging reviewed. PE: Obese, elderly, WD, WN female in no acute distress. Mood affect appropriate. Alert and oriented x 4. Trachea midline. Hearing intact conversation. Head NCAT. Extraocular movements intact. Heart regular rate and rhythm with holosystolic murmur. Lungs diminished but clear bilaterally. Trace edema bilateral lower extremities. Belly is soft, nontender, nondistended with bowel sounds present; it is protuberant. Past Medical History Past Medical History: Anemia, Arthritis, CHF, Depression, Dyslipidemia, GERD, Hypertension, Hypothyroidism and Renal Disease Past Surgical History Surgical History: Appendectomy, Cholecystectomy, Hysterectomy, Joint Replacement and Ortho Surgery Allergies Allergies Allergy/AdvReac Type Severity Reaction Status Date / Time No Known Drug Allergies Allergy Verified 06/13/24 13:14 Medications Home Medications: No Known Drug Allergies Allergy (Verified 06/13/24 13:14) Family History Family Medical History: Cancer, [place], Heart Failure and Hypertension Social History Does patient currently use any type of tobacco product: No Have you used tobacco products in the last 12 months: No Type of Tobacco Use: None Does any household member use tobacco: No Alcohol Use: None Drug Use: None Physical Exam Vital Signs: Last Vital Signs Temp 98.5 F 06/19/24 08:00 Pulse 81 06/19/24 08:00 Resp 21 06/19/24 08:00 BP 177/73 06/19/24 08:00 Pulse Ox 96 06/19/24 08:00 O2 Del Method Room Air 06/19/24 09:21 FiO2 28 11/13/23 20:22 Labs Labs: Laboratory Last Values WBC 9.9 X10^3/uL (3.6-10.0) 06/19/24 05:35 RBC 3.10 X10^6/uL (3.5-5.4) L 06/19/24 05:35 Hgb 9.4 g/dL (12.0-16.0) L 06/19/24 05:35 Hct 27.4 % (36.0-47.0) L 06/19/24 05:35 MCV 88.2 fL (80.0-100.0) 06/19/24 05:35 MCH 30.4 pg (27.0-34.0) 06/19/24 05:35 MCHC 34.4 g/dL (33.0-35.0) 06/19/24 05:35 RDW 13.9 % (11.6-16.5) 06/19/24 05:35 Plt Count 193 X10^3/uL (150.0-450.0) 06/19/24 05:35 MPV 11.1 fL (7.4-11.0) H 06/19/24 05:35 Neut % (Auto) 66.0 % (42.0-75.0) 06/19/24 05:35 Lymph % (Auto) 19.3 % (21.0-51.0) L 06/19/24 05:35 [place] % (Auto) 10.6 % (0.0-13.0) 06/19/24 05:35 Eos % (Auto) 3.2 % (0.9-2.9) H 06/19/24 05:35 Baso % (Auto) 0.9 % (0.2-1.0) 06/19/24 05:35 Neut # (Auto) 6.6 x10^3/uL (2.2-4.8) H 06/19/24 05:35 Lymph # (Auto) 1.9 X10^3/uL (1.3-2.9) 06/19/24 05:35 [place] # (Auto) 1.1 x10^3/uL (0.3-0.8) H 06/19/24 05:35 Eos # (Auto) 0.3 x10^3/uL (0.0-0.2) H 06/19/24 05:35 Baso # (Auto) 0.1 X10^3/uL (0.0-0.1) 06/19/24 05:35 Absolute Nucleated RBC 0.1 /100WBC 06/19/24 05:35 Sodium 145 mmol/L (136-145) 06/19/24 05:35 Corrected Sodium TNP 06/19/24 05:35 Potassium 3.8 mmol/L (3.5-5.1) 06/19/24 05:35 Chloride 107 mmol/L (98-107) 06/19/24 05:35 Carbon Dioxide 26.9 mmol/L (21-32) 06/19/24 05:35 BUN 23 mg/dL (7-18) H 06/19/24 05:35 Creatinine 1.85 mg/dL (0.55-1.02) H 06/19/24 05:35 Est GFR (MDRD) Af Amer 34 (>60) L 06/19/24 05:35 Est GFR (MDRD) Non-Af 28 (>60) L 06/19/24 05:35 Glucose 106 mg/dL (65-99) H 06/19/24 05:35 Calcium 10.2 mg/dL (8.5-10.1) H 06/19/24 05:35 Corrected Calcium TNP 06/19/24 05:35 Magnesium 2.7 mg/dL (2.0-2.9) 06/19/24 05:35 Total Bilirubin 0.60 mg/dL (0.2-1.0) 06/19/24 05:35 AST 23 Units/L (15-37) 06/19/24 05:35 ALT 17 Units/L (12-78) 06/19/24 05:35 Alkaline Phosphatase 65 Units/L (46-116) 06/19/24 05:35 Creatine Kinase 46 Units/L (26-192) 06/18/24 12:47 Troponin I High Sens 14.7 ng/L (4.0-60.0) 06/19/24 05:35 B-Natriuretic Peptide 132 pg/mL (0-79) H 06/18/24 12:47 Total Protein 7.0 g/dL (6.4-8.2) 06/19/24 05:35 Albumin 3.4 g/dL (3.4-5.0) 06/19/24 05:35 Globulin 3.6 g/dL (2.5-4.5) 06/19/24 05:35 Albumin/Globulin Ratio 0.9 Ratio (1.1-2.1) L 06/19/24 05:35 Specimen Type Clean catch urine 06/18/24 20:25 Urine Color Yellow (YELLOW) 06/18/24 20: Urine Appearance Clear (CLEAR) 06/18/24 20: Urine pH 7.0 (5.0 - 8.0) 06/18/24 20:25 Ur Specific [place] 1.010 (1.000-1.030) 06/18/24 20: Urine Protein 2+ (NEGATIVE) 06/18/24 20: Urine Glucose (UA) Negative (NEGATIVE) 06/18/24 20: Urine Ketones Negative (NEGATIVE) 06/18/24 20: Urine Blood Negative (NEGATIVE) 06/18/24 20: Urine Nitrite Negative (NEGATIVE) 06/18/24 20: Urine Bilirubin Negative (NEGATIVE) 06/18/24 20: Urine Urobilinogen Normal (NORMAL) 06/18/24 20:25 Ur Leukocyte Esterase Negative (NEGATIVE) 06/18/24 20:25 Urine RBC None seen /HPF (0-3) 06/18/24 20: Urine WBC None seen /HPF (0-5) 06/18/24 20: Ur Squamous Epith Cells Few /HPF (NEGATIVE) 06/18/24 20: Urine Bacteria Trace /HPF (NEGATIVE) 06/18/24 20:25 Ur Culture Indicated? No/not indicated 06/18/24 20:25 Assessment/Plan (1) Generalized weakness: (2) Mild aortic stenosis: (3) Essential (primary) hypertension: (4) Chronic diastolic heart failure: (5) Acquired hypothyroidism: (6) Anemia: Hospital Course Hospital Course: Patient was admitted and observed overnight. Labs remained stable to improved. Blood pressure remained elevated at home medications were started for a.m. dosing. Cardiology was consulted for potential nuclear stress imaging. Once it was determined we could not do it at this facility, family wanted to be transferred to [place]. [facility] was contacted and agreed to accept her for testing. Patient was discharged in stable condition via EMS for further cardiac workup. Discharge Medications Discharge Medications: Prescriptions: Discharge Plan Discharge Plan Patient Disposition: [facility]F [id number] Condition: Stable Health Concerns: Post Hospitalization: new medications and changes needed to prevent readmission or further decline. Pt educated and given instructions on all concerns. Plan of Treatment: Continue with present treatment and follow up plan. Pt is to keep follow up appointment as instructed and take medications as ordered. Prescription drug monitoring program results: PDMP was not reviewed Prescriptions: No Action potassium chloride 10 mEq tablet extended release 10 meq PO BID PRN Patient Comments: TAKE 1 TABLET BY MOUTH TWICE DAILY DIRECTED levothyroxine 75 mcg tablet 75 mcg PO QAM hydrocodone-acetaminophen 7.5-325 mg tablet 1 tab PO BID PRN Patient Comments: TAKE 1 TABLET BY MOUTH TWICE DAILY NEEDED duloxetine 60 mg capsule,delayed release(DR/EC) 60 mg PO QAM torsemide 20 mg tablet 20 mg PO BID Patient Comments: TAKE 2 TABLETS BY MOUTH TWICE DAILY ergocalciferol (vitamin D2) 1,250 mcg (50,000 unit) capsule 1,250 mcg PO 2XW ibandronate 150 mg tablet 150 mg PO QMONTH ferrous sulfate 325 mg (65 mg iron) tablet 325 mg PO QDAY Qty: 30 0RF isosorbide mononitrate 30 mg tablet extended release 24 hr 30 mg PO QDAY hydralazine 100 mg tablet 100 mg PO BID carvedilol 12.5 mg tablet 12.5 mg PO BID tizanidine 4 mg tablet 4 mg PO BID PRN amlodipine 10 mg tablet 10 mg PO QDAY Mounjaro 2.5 mg/0.5 mL pen injector 2.5 mg SUBCUT WEEKLY Patient Comments: [NO ORIGINAL SIG] Follow ups/Referrals Follow ups/Referrals: Juan Morgan MD [Primary Care Provider] - 3 days Instructions Stand Alone Forms: Excuse From Work or School, Post Hospital Follow Up Care
== END 2024-06-19 12:57 | disposition short-term general hospital (02) ==
LOC: MED/SURG 11:40 → ER 11:40 → MED/SURG 21:30
PROVIDERS: ADMIT Family Medicine; ATTEND Family Medicine
DX: N18.4 Chronic kidney disease, stage 4 (severe); I35.0 Nonrheumatic aortic (valve) stenosis; R42 Dizziness and giddiness; I50.32 Chronic diastolic (congestive) heart failure; R53.1 Weakness; G47.00 Insomnia, unspecified; R06.09 Other forms of dyspnea; R94.31 Abnormal electrocardiogram [ECG] [EKG]; R06.02 Shortness of breath; R26.89 Other abnormalities of gait and mobility; R19.7 Diarrhea, unspecified; K21.9 Gastro-esophageal reflux disease without esophagitis; I13.0 Hypertensive heart and chronic kidney disease with heart failure and stage 1 through stage 4 chronic kidney disease, or unspecified chronic kidney disease; D64.89 Other specified anemias; E03.8 Other specified hypothyroidism